=== PATIENT | male | born 1990 | race African-American/Black ===

== ENCOUNTER 2016-12-01 23:30 | Emergency (ER) | payer MEDICAID ==
[~2016-12-01] VITALS: Ht 167.6 cm; Wt 65.0 kg
[~2016-12-01 23:30] MED LIST: FOLI1TAB4 PO
[2016-12-01 23:33] VITALS: BP 121/67; PULSE 74; RESP 16; TEMP 97.8; O2SAT 98
[2016-12-01] MEDS ORDERED: MORPHINE SULFATE 4 MG/ML INJ IV PUSH ONE (23:45)
[2016-12-01] MEDS ORDERED: SODIUM CHLOR 0.9% 1000 ML INJ 1,000 ML IV ONE (23:45)
[2016-12-02 00:02] LABS: AUTOMATED NEUTROPHIL # 2.3 TH/MM3 (1.8-7.7); BASOPHIL # 0.2 TH/MM3 (0-0.2); BASOPHIL % 2.5 % (0.0-2.0); EOSINOPHIL # 0.4 TH/MM3 (0-0.4); EOSINOPHIL % 5.7 % (0.0-4.0); HEMATOCRIT 36.5 % (39.0-51.0); HEMO FLAGS DIFF FINAL; LYMPHOCYTE # 2.8 TH/MM3 (1.0-4.8); MEAN CELL VOLUME 79.6 FL (80.0-100.0); MEAN CORPUSCULAR HEMOGLOBIN 27.9 PG (27.0-34.0); MONO % 11.8 % (0.0-8.0); PLATELET COUNT 274 TH/MM3 (150-450); RED BLOOD COUNT 4.59 MIL/MM3 (4.50-5.90); RED CELL DISTRIBUTION WIDTH 17.6 % (11.6-17.2); RETIC % 3.4 % (0.4-3.0); REVIEW FLAG FINAL; WHITE BLOOD COUNT 6.4 TH/MM3 (4.0-11.0)
[2016-12-02 00:20] LABS: ALT (GPT) 19 U/L (12-78); ANION GAP 6 MEQ/L (5-15); AST (GOT) 18 U/L (15-37); BICARBONATE 30.6 MEQ/L (21.0-32.0); BLOOD UREA NITROGEN 11 MG/DL (7-18); CHLORIDE 106 MEQ/L (98-107); GLOMERULAR FILTRATION RATE 100 ML/MIN (>89); POTASSIUM 4.2 MEQ/L (3.5-5.1); SODIUM (NA) 143 MEQ/L (136-145)
[2016-12-02 00:23] LABS: ALKALINE PHOSPHATASE 97 U/L (45-117); TOTAL BILIRUBIN ADULT 1.6 MG/DL (0.2-1.0)
[2016-12-02] MEDS ORDERED: MORPHINE SULFATE 4 MG/ML INJ IV PUSH ONE (01:15)
[2016-12-02 01:26] VITALS: RESP 16
--- NOTE | 2016-12-02 02:25 | PD ---
HPI Chief Complaint: Sickle Cell Time Seen by Provider: 23:39 Travel History International Travel<30 days: No Contact w/Intl Traveler<30days: No Traveled to known affect area: No History of Present Illness HPI Patient is a 26 year old male with history of sickle cell disease complaining of pain all over his body. He says it started today while he was at work. He says he felt weak and then his pain came on. He does not have pain medication at home. He does not follow with a relocation commissioner. He says that he does not want pain medicine at home because "he does not want to get addicted." He denies chest pain or SOB. He denies fever or chills. PFSH Past Medical History Hx Anticoagulant Therapy: No Blood Disorders: Yes (SICKLE CELL) Cardiovascular Problems: No Chemotherapy: No Cerebrovascular Accident: No Diabetes: No Diminished Hearing: No Gastrointestinal Disorders: No Genitourinary: No Musculoskeletal: No Neurologic: No Reproductive: No Respiratory: No Immunizations Current: Yes Sickle Cell Disease: Yes Tetanus Vaccination: < 5 Years Influenza Vaccination: Yes Past Surgical History Other Surgery: Yes Social History Alcohol Use: No Tobacco Use: Yes (0.5 ppd ) Substance Use: No Allergies-Medications (Allergen,Severity, Reaction): Coded Allergies: No Known Allergies (Verified , 12/01/16) Reported Meds & Prescriptions Reported Meds & Active Scripts Active Review of Systems Except as stated in HPI: all other systems reviewed are Neg General / Constitutional: No: Fever, Chills HENT: No: Headaches, Lightheadedness Cardiovascular: No: Chest Pain or Discomfort Respiratory: No: Cough, Shortness of Breath Gastrointestinal: No: Nausea, Vomiting Musculoskeletal: Positive: Myalgias, Arthralgias Skin: No Rash, No Change in Pigmentation Neurologic: Positive: Weakness Physical Exam Narrative GENERAL: Awake and alert in no acute distress. SKIN: Warm and dry. HEAD: Atraumatic. Normocephalic. EYES: Pupils equal and round. No scleral icterus. No conjunctival pallor. ENT: Mucous membranes pink and moist. NECK: Trachea midline. No JVD. CARDIOVASCULAR: Regular rate and rhythm. No murmur appreciated. RESPIRATORY: No accessory muscle use. Clear to auscultation. Breath sounds equal bilaterally. GASTROINTESTINAL: Abdomen soft, non-tender, nondistended. MUSCULOSKELETAL: No obvious deformities. No clubbing. No cyanosis. No edema. NEUROLOGICAL: Awake and alert. No obvious cranial nerve deficits. Motor grossly within normal limits. Normal speech. PSYCHIATRIC: Appropriate mood and affect; insight and judgment normal. Data Data Last Documented VS Vital Signs Date Time Temp Pulse Resp B/P Pulse Ox O2 Delivery O2 Flow Rate FiO2 12/02/16 01:26 16 12/01/16 23:33 97.8 74 121/67 98 Room Air Orders Complete Blood Count With Diff (12/01/16 23:45) Comprehensive Metabolic Panel (12/01/16 23:45) Retic Count (12/01/16 23:45) Sodium Chlor 0.9% 1000 Ml Inj (Ns 1000 M (12/01/16 23:45) Morphine Inj (Morphine Inj) (12/01/16 23:45) Morphine Inj (Morphine Inj) (12/02/16 01:15) Labs Laboratory Tests Test 12/01/16 23:50 White Blood Count 6.4 TH/MM3 Red Blood Count 4.59 MIL/MM3 Hemoglobin 12.8 GM/DL Hematocrit 36.5 % Mean Corpuscular Volume 79.6 FL Mean Corpuscular Hemoglobin 27.9 PG Mean Corpuscular Hemoglobin 35.0 % Concent Red Cell Distribution Width 17.6 % Platelet Count 274 TH/MM3 Mean Platelet Volume 7.5 FL Neutrophils (%) (Auto) 36.0 % Lymphocytes (%) (Auto) 44.0 % Monocytes (%) (Auto) 11.8 % Eosinophils (%) (Auto) 5.7 % Basophils (%) (Auto) 2.5 % Neutrophils # (Auto) 2.3 TH/MM3 Lymphocytes # (Auto) 2.8 TH/MM3 Monocytes # (Auto) 0.8 TH/MM3 Eosinophils # (Auto) 0.4 TH/MM3 Basophils # (Auto) 0.2 TH/MM3 CBC Comment DIFF FINAL Differential Comment Reticulocyte Count 3.4 % Absolute Reticulocyte Count 156.2 MIL/L Sodium Level 143 MEQ/L Potassium Level 4.2 MEQ/L Chloride Level 106 MEQ/L Carbon Dioxide Level 30.6 MEQ/L Anion Gap 6 MEQ/L Blood Urea Nitrogen 11 MG/DL Creatinine 1.07 MG/DL Estimat Glomerular Filtration 100 ML/MIN Rate Random Glucose 118 MG/DL Calcium Level 9.0 MG/DL Total Bilirubin 1.6 MG/DL Aspartate Amino Transf 18 U/L (AST/SGOT) Alanine Aminotransferase 19 U/L (ALT/SGPT) Alkaline Phosphatase 97 U/L Total Protein 7.7 GM/DL Albumin 4.0 GM/DL MDM Medical Decision Making Medical Screen Exam Complete: Yes Emergency Medical Condition: Yes Medical Record Reviewed: Yes Differential Diagnosis Sickle cell crisis versus anemia versus infection Narrative Course Patient is a 26-year-old male who comes in complaining of sickle cell pain. Exam shows no abnormalities. IV established, labs sent. Hemoglobin is 12.8. There are no abnormalities in his labs, or tick count is elevated appropriately. Patient given IV fluids and morphine. He reports his pain is improving, but he still has some pain. Given second dose of morphine. Patient states he is feeling better and is ready to go home. Advised to follow- up with a relocation commissioner. Advised to return to the ED as needed for any worsening symptoms. Diagnosis Primary Impression: Sickle cell pain crisis Patient Instructions: General Instructions, Sickle Cell Crisis (ED) Additional Instructions: Follow up with a relocation commissioner. Take Tylenol or Ibuprofen for pain. Return as needed for any worsening pain. Disposition: 01 DISCHARGE HOME Condition: Stable Jennifer Monique MD Dec 02, 2016 02:25
== END 2016-12-02 02:30 | disposition home or self-care (01) ==
LOC: NEPC 23:30
DX: D57.00 Hb-SS disease with crisis, unspecified (principal)
CPT/HCPCS: 80053; 85025; 85044; 96361; 96374; 96376; 99284; J2270; J7030

== ENCOUNTER 2016-12-18 21:05 | Emergency (ER) | payer MEDICAID ==
[~2016-12-18] VITALS: Ht 167.6 cm; Wt 63.5 kg
[2016-12-18 21:07] VITALS: BP 128/74; PULSE 80; RESP 18; TEMP 98.1; O2SAT 98
[2016-12-18] MEDS ORDERED: SODIUM CHLOR 0.9% 1000 ML INJ 1,000 ML IV ONE (21:18)
[2016-12-18] MEDS ORDERED: MORPHINE SULFATE 4 MG/ML INJ IV PUSH ONE ×2 (21:30→22:30)
[2016-12-18] MEDS ORDERED: ONDANSETRON HCL 4 MG/2 ML VIAL IV PUSH ONE (21:30)
[2016-12-18] MEDS ORDERED: FOLIC ACID 1 MG TAB PO ONE (21:30)
--- NOTE | 2016-12-18 21:43 | PD ---
HPI Chief Complaint: Sickle Cell Time Seen by Provider: 21:39 Travel History International Travel<30 days: No Contact w/Intl Traveler<30days: No Traveled to known affect area: No History of Present Illness HPI 26-year-old male that presents to the ED for evaluation of sickle-cell pain. Per patient she's had sickle cell pain the past this is different in the weight that he has some much pain in his right arm which is new for him. Per patient has had pain in his shoulder and arm before from sickle cell but never where he cannot move it because his severely painful. He denies any fevers chills or sweats. Nothing that contributes to his pain. Per patient he doesn't take any medications for this. He has no allergies to medication. Denies any chest pain or shortness of breath. Per patient pain is 8 out of 10. Per patient his been started today. Denies any nausea or vomiting. No other medical problems reported today. He does follow with a balloon sander. PFSH Past Medical History Hx Anticoagulant Therapy: No Blood Disorders: Yes (SICKLE CELL) Cardiovascular Problems: No Chemotherapy: No Cerebrovascular Accident: No Diabetes: No Diminished Hearing: No Gastrointestinal Disorders: No Genitourinary: No Musculoskeletal: No Neurologic: No Reproductive: No Respiratory: No Immunizations Current: Yes Sickle Cell Disease: Yes Past Surgical History Other Surgery: Yes Social History Alcohol Use: No Tobacco Use: Yes (0.5 ppd ) Substance Use: No Allergies-Medications (Allergen,Severity, Reaction): Coded Allergies: No Known Allergies (Verified , 12/18/16) Reported Meds & Prescriptions Reported Meds & Active Scripts Active No Active Prescriptions or Reported Medications Review of Systems Except as stated in HPI: all other systems reviewed are Neg Physical Exam Narrative GENERAL: SKIN: Warm and dry. HEAD: Atraumatic. Normocephalic. EYES: Pupils equal and round. No scleral icterus. No injection or drainage. ENT: No nasal bleeding or discharge. Mucous membranes pink and moist. Tongue is midline. No uvula deviation. NECK: Trachea midline. No JVD. CARDIOVASCULAR: Regular rate and rhythm. No murmurs, S3, S4. RESPIRATORY: No accessory muscle use. Clear to auscultation. Breath sounds equal bilaterally. GASTROINTESTINAL: Abdomen soft, non-tender, nondistended. Hepatic and splenic margins not palpable. MUSCULOSKELETAL: Extremities without clubbing, cyanosis, or edema. No obvious deformities. Full range of motion of the left upper extremity will patient does have difficulty moving the right shoulder secondary to severe pain. No obvious deformity noted on physical exam. Pupils pulses bilaterally. NEUROLOGICAL: Awake and alert. No obvious cranial nerve deficits. Motor grossly within normal limits. Five out of 5 muscle strength in the arms and legs. Normal speech. PSYCHIATRIC: Appropriate mood and affect; insight and judgment normal. Data Data Last Documented VS Vital Signs Date Time Temp Pulse Resp B/P Pulse Ox O2 Delivery O2 Flow Rate FiO2 12/18/16 22:05 75 16 120/67 98 Room Air 12/18/16 21:07 98.1 Orders Basic Metabolic Panel (Bmp) (12/18/16 21:18) Complete Blood Count With Diff (12/18/16 21:18) Retic Count (12/18/16 21:18) Iv Access Insert/Monitor (12/18/16 21:18) Sodium Chlor 0.9% 1000 Ml Inj (Ns 1000 M (12/18/16 21:18) Folic Acid (Folate) (12/18/16 21:30) Morphine Inj (Morphine Inj) (12/18/16 21:30) Ondansetron Inj (Zofran Inj) (12/18/16 21:30) Morphine Inj (Morphine Inj) (12/18/16 22:30) Ketorolac Inj (Toradol Inj) (12/18/16 22:30) Labs Laboratory Tests Test 12/18/16 21:42 White Blood Count 8.6 TH/MM3 Red Blood Count 4.59 MIL/MM3 Hemoglobin 13.1 GM/DL Hematocrit 37.1 % Mean Corpuscular Volume 80.8 FL Mean Corpuscular Hemoglobin 28.5 PG Mean Corpuscular Hemoglobin 35.3 % Concent Red Cell Distribution Width 17.5 % Platelet Count 284 TH/MM3 Mean Platelet Volume 7.6 FL Neutrophils (%) (Auto) 50.0 % Lymphocytes (%) (Auto) 38.0 % Monocytes (%) (Auto) 6.9 % Eosinophils (%) (Auto) 3.9 % Basophils (%) (Auto) 1.2 % Neutrophils # (Auto) 4.3 TH/MM3 Lymphocytes # (Auto) 3.3 TH/MM3 Monocytes # (Auto) 0.6 TH/MM3 Eosinophils # (Auto) 0.3 TH/MM3 Basophils # (Auto) 0.1 TH/MM3 CBC Comment DIFF FINAL Differential Comment Reticulocyte Count 4.0 % Absolute Reticulocyte Count 183.7 MIL/L Sodium Level 139 MEQ/L Potassium Level 3.8 MEQ/L Chloride Level 101 MEQ/L Carbon Dioxide Level 29.2 MEQ/L Anion Gap 9 MEQ/L Blood Urea Nitrogen 12 MG/DL Creatinine 1.19 MG/DL Estimat Glomerular Filtration 88 ML/MIN Rate Random Glucose 115 MG/DL Calcium Level 8.8 MG/DL MDM Medical Decision Making Medical Screen Exam Complete: Yes Emergency Medical Condition: Yes Medical Record Reviewed: Yes Interpretation(s) CBC & BMP Diagram 12/18/16 21:42 reticular count in the 180s Differential Diagnosis Sickle cell crisis versus sickle cell pain versus dehydration versus chronic pain versus right shoulder pain Narrative Course 18-year-old male that presents to the ED for evaluation of sickle-cell pain. Patient was properly examined and was found to have signs and symptoms consistent appears to be sickle cell pain crisis. Labs and IV as well as fluids and folic acid and pain medication were ordered. Patient agrees for us to proceed. Labs showed sickle cell anemia but otherwise unremarkable. Patient does not feel improved yet. Patient was given 1 more dose of IV morphine and Toradol to help with his symptoms. Patient will be discharged home. Patient was told to follow up with PCP. See ED worsening symptoms. Diagnosis Primary Impression: Sickle cell pain crisis Patient Instructions: Narcotic given in the ED, General Instructions Additional Instructions: Follow with PCP. See ED worsening symptoms. Take Motrin or Tylenol for pain. Med/Other Pt SpecificInfo: No Change to Meds Scripts No Active Prescriptions or Reported Meds Disposition: 01 DISCHARGE HOME Condition: Stable Camilo Marsh Dec 18, 2016 21:43
[2016-12-18 21:58] LABS: AUTOMATED NEUTROPHIL # 4.3 TH/MM3 (1.8-7.7); BASOPHIL # 0.1 TH/MM3 (0-0.2); BASOPHIL % 1.2 % (0.0-2.0); EOSINOPHIL # 0.3 TH/MM3 (0-0.4); EOSINOPHIL % 3.9 % (0.0-4.0); HEMATOCRIT 37.1 % (39.0-51.0); HEMO FLAGS DIFF FINAL; LYMPHOCYTE # 3.3 TH/MM3 (1.0-4.8); MEAN CELL VOLUME 80.8 FL (80.0-100.0); MEAN CORPUSCULAR HEMOGLOBIN 28.5 PG (27.0-34.0); MEAN CORPUSCULAR HGB CONC 35.3 % (32.0-36.0); MONO % 6.9 % (0.0-8.0); PLATELET COUNT 284 TH/MM3 (150-450); RED BLOOD COUNT 4.59 MIL/MM3 (4.50-5.90); RED CELL DISTRIBUTION WIDTH 17.5 % (11.6-17.2); REVIEW FLAG FINAL; WHITE BLOOD COUNT 8.6 TH/MM3 (4.0-11.0)
[2016-12-18 22:05] VITALS: BP 120/67; PULSE 75; RESP 16; O2SAT 98
[2016-12-18 22:21] LABS: BICARBONATE 29.2 MEQ/L (21.0-32.0); POTASSIUM 3.8 MEQ/L (3.5-5.1)
[2016-12-18] MEDS ORDERED: KETOROLAC TROMETHAMINE 30 MG/ML (IVP) VIAL IV PUSH ONE (22:30)
[2016-12-18 23:30] VITALS: BP 118/64
== END 2016-12-18 23:52 | disposition home or self-care (01) ==
LOC: NEPC 21:05
DX: D57.00 Hb-SS disease with crisis, unspecified (principal); F17.210 Nicotine dependence, cigarettes, uncomplicated
CPT/HCPCS: 80048; 85025; 85044; 96374; 96375; 96376; 99284; J1885; J2270; J2405; J7030

== ENCOUNTER 2017-01-10 18:31 | Emergency (ER) | payer MEDICAID ==
[~2017-01-10] VITALS: Ht 167.6 cm; Wt 66.0 kg
[2017-01-10 18:32] VITALS: BP 126/77; PULSE 76; RESP 18; TEMP 98.9; O2SAT 100
[2017-01-10] MEDS ORDERED: SODIUM CHLOR 0.9% 1000 ML INJ 1,000 ML IV ONE (19:25)
--- NOTE | 2017-01-10 19:29 | PD ---
HPI Chief Complaint: Sickle Cell Time Seen by Provider: 19:25 Travel History International Travel<30 days: No Contact w/Intl Traveler<30days: No Traveled to known affect area: No History of Present Illness HPI 26-year-old male with history of sickle cell disease, presents to the ER today for chest discomfort, body aches, shortness of breath that started today on its own. He denies any fevers, vomiting, or any other symptoms. Pain is currently a 10 out of 10. He states that it feels different from his sickle cell disorder , states he usually does not get short of breath. Modifying Factors: None Associated Signs & Symptoms: Body pains, chest pains, shortness of breath Risk Factors: Sickle cell PFSH Past Medical History Hx Anticoagulant Therapy: No Blood Disorders: Yes (SICKLE CELL) Cardiovascular Problems: No Chemotherapy: No Cerebrovascular Accident: No Diabetes: No Diminished Hearing: No Gastrointestinal Disorders: No Genitourinary: No Musculoskeletal: No Neurologic: No Reproductive: No Respiratory: No Immunizations Current: Yes Sickle Cell Disease: Yes Tetanus Vaccination: > 5 Years Past Surgical History Other Surgery: Yes Social History Alcohol Use: No Tobacco Use: Yes (0.5 ppd ) Substance Use: No Allergies-Medications (Allergen,Severity, Reaction): Coded Allergies: No Known Allergies (Verified , 01/10/17) Reported Meds & Prescriptions Reported Meds & Active Scripts Active No Active Prescriptions or Reported Medications Review of Systems Except as stated in HPI: all other systems reviewed are Neg Physical Exam Narrative GENERAL: Well-nourished, well-developed young -Citizen Of [place] male patient in moderate distress. SKIN: Warm and dry. HEAD: Normocephalic. EYES: No scleral icterus. No injection or drainage. NECK: Supple, trachea midline. CARDIOVASCULAR: Regular rate and rhythm without murmurs, gallops, or rubs. RESPIRATORY: Breath sounds equal but decreased throughout bilaterally. No accessory muscle use. GASTROINTESTINAL: Abdomen soft, non-tender, nondistended. MUSCULOSKELETAL: No cyanosis, or edema. BACK: Nontender without obvious deformity. No CVA tenderness. Data Data Last Documented VS Vital Signs Date Time Temp Pulse Resp B/P Pulse Ox O2 Delivery O2 Flow Rate FiO2 01/10/17 20:25 100 Nasal Cannula 2 01/10/17 19:52 75 18 141/80 01/10/17 18:32 98.9 Orders C-Reactive Protein (Crp) (01/10/17 19:25) Complete Blood Count With Diff (01/10/17 19:25) Comprehensive Metabolic Panel (01/10/17:25) Retic Count (01/10/17:25) Chest, Single Ap (01/10/17 19:25) Ecg Monitoring (01/10/17 19:25) Iv Access Insert/Monitor (01/10/17:25) Oximetry (01/10/17:25) Oxygen Administration (01/10/17:25) Hydromorphone Pf Inj (Dilaudid Pf Inj) (01/10/17 19:30) Ondansetron Inj (Zofran Inj) (01/10/17 19:30) Sodium Chloride 0.9% Flush (Ns Flush) (01/10/17 19:30) Sodium Chlor 0.9% 1000 Ml Inj (Ns 1000 M (01/10/17 19:25) Diphenhydramine Inj (Benadryl Inj) (01/10/17 19:30) Electrocardiogram (01/10/17 19:29) Blood Culture (01/10/17 20:08) Lactic Acid Sepsis Protocol (01/10/17 20:08) Ceftriaxone Inj (Rocephin Inj) (01/10/17 20:08) Azithromycin Inj (Zithromax Inj) (01/10/17 20:08) Labs Laboratory Tests Test 01/10/17 01/10/17 18:45 20:20 White Blood Count 10.3 TH/MM3 Red Blood Count 4.47 MIL/MM3 Hemoglobin 13.0 GM/DL Hematocrit 36.6 % Mean Corpuscular Volume 82.0 FL Mean Corpuscular Hemoglobin 29.0 PG Mean Corpuscular Hemoglobin 35.4 % Concent Red Cell Distribution Width 16.9 % Platelet Count 265 TH/MM3 Mean Platelet Volume 8.2 FL Neutrophils (%) (Auto) % Lymphocytes (%) (Auto) % Monocytes (%) (Auto) % Eosinophils (%) (Auto) % Basophils (%) (Auto) % Neutrophils # (Auto) TH/MM3 Lymphocytes # (Auto) TH/MM3 Monocytes # (Auto) TH/MM3 Eosinophils # (Auto) TH/MM3 Basophils # (Auto) TH/MM3 CBC Comment AUTO DIFF Differential Total Cells 100 Counted Neutrophils % (Manual) 80 % Band Neutrophils % 1 % Lymphocytes % 14 % Monocytes % 3 % Eosinophils % 2 % Neutrophils # (Manual) 8.3 TH/MM3 Differential Comment FINAL DIFF MANUAL Platelet Estimate NORMAL Platelet Morphology Comment NORMAL Sickle Cells 1+ Target Cells 3+ Ovalocytes 1+ Reticulocyte Count 4.0 % Absolute Reticulocyte Count 176.9 MIL/L Sodium Level 141 MEQ/L Potassium Level 3.9 MEQ/L Chloride Level 105 MEQ/L Carbon Dioxide Level 30.6 MEQ/L Anion Gap 5 MEQ/L Blood Urea Nitrogen 7 MG/DL Creatinine 0.99 MG/DL Estimat Glomerular Filtration 109 ML/MIN Rate Random Glucose 75 MG/DL Calcium Level 8.6 MG/DL Total Bilirubin 2.0 MG/DL Aspartate Amino Transf 15 U/L (AST/SGOT) Alanine Aminotransferase 14 U/L (ALT/SGPT) Alkaline Phosphatase 91 U/L C-Reactive Protein 0.69 MG/DL Total Protein 8.0 GM/DL Albumin 4.3 GM/DL Lactic Acid Level 1.2 mmol/L MDM Medical Decision Making Medical Screen Exam Complete: Yes Emergency Medical Condition: Yes Medical Record Reviewed: Yes Interpretation(s) EKG shows NSR, no ST elevation or depression, and no arrhythmias. No significant T-wave inversions. Laboratory Tests Test 01/10/17 18:45 Red Blood Count 4.47 MIL/MM3 (4.50-5.90) Hematocrit 36.6 % (39.0-51.0) Neutrophils % (Manual) 80 % (16-70) Neutrophils # (Manual) 8.3 TH/MM3 (1.8-7.7) Sickle Cells 1+ (NORMAL) Target Cells 3+ (NORMAL) Ovalocytes 1+ (NORMAL) Reticulocyte Count 4.0 % (0.4-3.0) Absolute Reticulocyte Count 176.9 MIL/L (20.0-150.0) Total Bilirubin 2.0 MG/DL (0.2-1.0) C-Reactive Protein 0.69 MG/DL (0.00-0.30) Last 24 hours Impressions Chest X-Ray 01/10/171924 Signed Impressions: Service Date/Time: Tuesday, January 10, 2017 19:38 - CONCLUSION: Slight nonspecific right base infiltrate. Elpidio Mar MD Differential Diagnosis Chest discomfort, shortness of breath, body painssickle cell crisis versus pneumonia versus ACS versus acute chest syndrome Narrative Course Chest x-ray shows a slight right sided infiltrate questionable for underlying pneumonia. IV antacid initiated after cultures are drawn. He was given IV fluids, pain medications, Zofran, and Benadryl in the ER. I have offered to admit the patient for the pneumonia and he states that he wants to go to work does not want to be admitted this point. At this point, my plan would be to release the patient with follow-up to primary care physician and we will give him antibiotics and symptomatic relief or pain. Return for any worsening in symptoms as necessary. The plan has discussed with the patient and he states understanding. Diagnosis Primary Impression: Sickle cell pain crisis Additional Impression: Pneumonia Med/Other Pt SpecificInfo: Prescription(s) given Scripts Levofloxacin (Levaquin)750 Mg Obr760 Mg PO DAILY 7 Days Ref 0 Prov:Ann Morton MD 01/10/17 Hydrocodone-Acetaminophen (Lortab)5-325 Mg Tab1-2 Tab PO Q6H PRN (PAIN) #20 TAB Ref 0 Prov:Ann Morton MD 01/10/17 Disposition: 01 DISCHARGE HOME Condition: Stable Ann Morton MD Jan 10, 2017 19:29
[2017-01-10] MEDS ORDERED: diphenhydrAMINE HCL 50 MG/ML VIAL IV ONE (19:30)
[2017-01-10] MEDS ORDERED: ONDANSETRON HCL 4 MG/2 ML VIAL IVP ONE (19:30)
[2017-01-10] MEDS ORDERED: SODIUM CHLORIDE 0.9% FLUSH 5 ML FLUSH IVF PRN (19:30)
[2017-01-10] MEDS ORDERED: HYDROmorphone HCL PF 2 MG/ML VIAL IVS ONE (19:30)
[2017-01-10 19:52] VITALS: BP 141/80; PULSE 75; RESP 18; O2SAT 100
--- NOTE | 2017-01-10 19:57 | RADRPT ---
EXAM DATE/TIME: 01/10/2017 19:38 [facility] COMPARISON: No previous studies available for comparison. INDICATIONS : Chest pain and shortness of breath. MEDICAL HISTORY : Sickle Cell disease. Smoker. SURGICAL HISTORY : None. ENCOUNTER: Initial ACUITY: 1 day PAIN SCORE: 3/10 LOCATION: Left chest FINDINGS: Slight infiltrates in right lung base. No pleural effusion. No pneumothorax. Heart size upper limits of normal. CONCLUSION: Slight nonspecific right base infiltrate. Elpidio Mar MD on January 10, 2017 at 19:55 Board Certified Radiologist. This report was verified electronically.
[2017-01-10] MEDS ORDERED: AZITHROMYCIN INJ 500 MG in SODIUM CHLOR 0.9% 250 ML INJ 250 ML IV STA (20:08)
[2017-01-10] MEDS ORDERED: cefTRIAXone INJ 2,000 MG in SODIUM CHLORIDE 0.9% INJ 100 ML IV STA (20:08)
[2017-01-10 20:17] LABS: HEMATOCRIT 36.6 % (39.0-51.0); MEAN CORPUSCULAR HGB CONC 35.4 % (32.0-36.0); PLATELET COUNT 265 TH/MM3 (150-450); RED BLOOD COUNT 4.47 MIL/MM3 (4.50-5.90); RED CELL DISTRIBUTION WIDTH 16.9 % (11.6-17.2); WHITE BLOOD COUNT 10.3 TH/MM3 (4.0-11.0)
[2017-01-10 20:20] LABS: HEMO FLAGS AUTO DIFF; REVIEW FLAG AUTO DIFF
[2017-01-10 20:43] LABS: BANDS 1 % (0-6); EOSINOPHILS 2 % (0-4); NEUTROPHIL # MANUAL DIFF 8.3 TH/MM3 (1.8-7.7); OVALOCYTES 1+ (NORMAL); PLATELET ESTIMATE SMEAR NORMAL (NORMAL); PLATELET MORPHOLOGY NORMAL (NORMAL); POLYS (SEG NEUTROPHILS) 80 % (16-70); SICKLE CELLS 1+ (NORMAL); TARGET CELLS 3+ (NORMAL); WBC DIFF SAMPLE 100
[2017-01-10 20:44] LABS: SCAN/DIFF FINAL DIFF MANUAL
[2017-01-10 21:42] LABS: ALT (GPT) 14 U/L (12-78); ANION GAP 5 MEQ/L (5-15); AST (GOT) 15 U/L (15-37); BICARBONATE 30.6 MEQ/L (21.0-32.0); BLOOD UREA NITROGEN 7 MG/DL (7-18); CHLORIDE 105 MEQ/L (98-107); GLOMERULAR FILTRATION RATE 109 ML/MIN (>89); POTASSIUM 3.9 MEQ/L (3.5-5.1); SODIUM (NA) 141 MEQ/L (136-145)
[2017-01-10 21:45] LABS: ALKALINE PHOSPHATASE 91 U/L (45-117)
[2017-01-10] MEDS ORDERED: HYDR-3533 PO (22:06)
[2017-01-10] MEDS ORDERED: LEVA750T PO (22:06)
--- NOTE | 2017-01-11 22:16 | EKG ---
Date Performed: 01/10/2017 Time Performed: 20:30:30 PTAGE: 26 years EKG: Sinus rhythm WITH SINUS ARRHYTHMIA WITH SHORT DE INTERVAL BORDERLINE ECG PREVIOUS TRACING : 09/13/2016 16.28 Compared to prior tracing no significant change DOCTOR: Tess Menjivar Interpretating Date/Time 01/11/2017 22:15:20
== END 2017-01-10 22:18 | disposition home or self-care (01) ==
LOC: NEPC 18:31
DX: D57.00 Hb-SS disease with crisis, unspecified (principal); J18.9 Pneumonia, unspecified organism
CPT/HCPCS: 71010; 80053; 83605; 85007; 85027; 85044; 86140; 87040; 93005; 96374; 96375; 99285; J0456; J0696; J1170; J1200; J2405; J7030; J7050

== ENCOUNTER 2017-02-14 21:00 | Emergency (ER) | payer MEDICAID ==
[~2017-02-14] VITALS: Ht 167.6 cm; Wt 66.0 kg
[~2017-02-14 21:00] MED LIST changes: -FOLI1TAB4 PO; +HYDR-3533 PO; +LEVA750T PO
[2017-02-14 21:02] VITALS: BP 129/74; PULSE 82; RESP 16; TEMP 98; O2SAT 99
[2017-02-14] MEDS ORDERED: diphenhydrAMINE HCL 50 MG/ML VIAL IV ONE (22:45)
[2017-02-14] MEDS ORDERED: SODIUM CHLOR 0.9% 1000 ML INJ 1,000 ML IV ONE (22:45)
[2017-02-14] MEDS ORDERED: ONDANSETRON HCL 4 MG/2 ML VIAL IVP ONE (22:45)
[2017-02-14] MEDS ORDERED: HYDROmorphone HCL PF 1 MG/ML VIAL IVS ONE (22:45)
[2017-02-14] MEDS ORDERED: SODIUM CHLORIDE 0.9% FLUSH 10 ML FLUSH IVF PRN (22:45)
[2017-02-14] MEDS ORDERED: KETOROLAC TROMETHAMINE 30 MG/ML (IVP) VIAL IVP ONE (22:45)
[2017-02-14 22:46] LABS: MEAN CORPUSCULAR HGB CONC 36.3 % (32.0-36.0)
--- NOTE | 2017-02-14 23:12 | PD ---
HPI Chief Complaint: Sickle Cell Time Seen by Provider: 22:35 Travel History International Travel<30 days: No Contact w/Intl Traveler<30days: No Traveled to known affect area: No History of Present Illness HPI The patient is a 26-year-old [place] male who presents emergency department for sickle cell pain crisis. The patient cannot recall if he has a history of sickle cell SS or SC. The patient states he has had pain for the last 2 days, generalized, located in the back and legs. He denies any cough, chest pain, shortness breath, or fever. The patient states she does not currently have a local primary physician is unable to see a cotton feeder in the local area as he has Medicaid. The patient has been referred to cotton feeder in the past in [facility], however, states he doesn't "have the time for that ". The patient has been tried [id number] Tylenol at home without any alleviation of his symptoms. Symptoms are moderate, exacerbated by history of sickle cell, and there are no current alleviating factors. PFSH Past Medical History Hx Anticoagulant Therapy: No Blood Disorders: Yes (SICKLE CELL) Cardiovascular Problems: No Chemotherapy: No Cerebrovascular Accident: No Diabetes: No Diminished Hearing: No Gastrointestinal Disorders: No Genitourinary: No Musculoskeletal: No Neurologic: No Reproductive: No Respiratory: No Immunizations Current: Yes Sickle Cell Disease: Yes Past Surgical History Other Surgery: Yes Social History Alcohol Use: No Tobacco Use: Yes (0.5 ppd ) Substance Use: No Allergies-Medications (Allergen,Severity, Reaction): Coded Allergies: No Known Allergies (Verified , 02/14/17) Reported Meds & Prescriptions Reported Meds & Active Scripts Active Review of Systems Except as stated in HPI: all other systems reviewed are Neg General / Constitutional: No: Fever Cardiovascular: No: Chest Pain or Discomfort Respiratory: No: Shortness of Breath Gastrointestinal: No: Nausea, Vomiting, Abdominal Pain Musculoskeletal: Positive: Myalgias, Arthralgias, Pain Neurologic: No: Paresthesia, Sensory Disturbance Physical Exam Narrative GENERAL: Awake, alert, 26-year-old male who appears his stated age and is in no acute respiratory distress. SKIN: No rash noted. HEAD: Atraumatic. Normocephalic. EYES: Pupils equal and round. Mild icterus. ENT: No nasal bleeding or discharge. Mucous membranes pink and moist. NECK: Trachea midline. No JVD. CARDIOVASCULAR: Regular rate and rhythm. No murmur appreciated. RESPIRATORY: No accessory muscle use. Clear to auscultation. Breath sounds equal bilaterally. GASTROINTESTINAL: Abdomen soft, mild swollen eyelid. MUSCULOSKELETAL: No obvious deformities. No clubbing. No cyanosis. No edema. NEUROLOGICAL: Awake and alert. No obvious cranial nerve deficits. Motor grossly within normal limits. Normal speech. PSYCHIATRIC: Appropriate mood and affect; insight and judgment normal. Data Data Last Documented VS Vital Signs Date Time Temp Pulse Resp B/P Pulse Ox O2 Delivery O2 Flow Rate FiO2 02/14/17 21:02 98.0 82 16 129/74 99 Orders Complete Blood Count With Diff (02/14/17 22:45) Retic Count (02/14/17 22:45) Ecg Monitoring (02/14/17 22:45) Iv Access Insert/Monitor (02/14/17 22:45) Oximetry (02/14/17 22:45) Ketorolac Inj (Toradol Inj) (02/14/17 22:45) Ondansetron Inj (Zofran Inj) (02/14/17 22:45) Sodium Chloride 0.9% Flush (Ns Flush) (02/14/17 22:45) Sodium Chlor 0.9% 1000 Ml Inj (Ns 1000 M (02/14/17 22:45) Hydromorphone Pf Inj (Dilaudid Pf Inj) (02/14/17 22:45) Diphenhydramine Inj (Benadryl Inj) (02/14/17 22:45) Labs Laboratory Tests Test 02/14/17 23:00 White Blood Count 8.8 TH/MM3 Red Blood Count 4.29 MIL/MM3 Hemoglobin 12.7 GM/DL Hematocrit 35.0 % Mean Corpuscular Volume 81.6 FL Mean Corpuscular Hemoglobin 29.6 PG Mean Corpuscular Hemoglobin 36.3 % Concent Red Cell Distribution Width 17.3 % Platelet Count 272 TH/MM3 Mean Platelet Volume 7.9 FL Neutrophils (%) (Auto) 43.6 % Lymphocytes (%) (Auto) 37.6 % Monocytes (%) (Auto) 12.7 % Eosinophils (%) (Auto) 4.6 % Basophils (%) (Auto) 1.5 % Neutrophils # (Auto) 3.9 TH/MM3 Lymphocytes # (Auto) 3.3 TH/MM3 Monocytes # (Auto) 1.1 TH/MM3 Eosinophils # (Auto) 0.4 TH/MM3 Basophils # (Auto) 0.1 TH/MM3 CBC Comment AUTO DIFF Differential Comment AUTO DIFF CONFIRMED Target Cells 2+ Reticulocyte Count 5.0 % Absolute Reticulocyte Count 213.2 MIL/L MDM Medical Decision Making Medical Screen Exam Complete: Yes Emergency Medical Condition: Yes Medical Record Reviewed: Yes Interpretation(s) Laboratory Tests Test 02/14/17 23:00 White Blood Count 8.8 TH/MM3 Red Blood Count 4.29 MIL/MM3 Hemoglobin 12.7 GM/DL Hematocrit 35.0 % Mean Corpuscular Volume 81.6 FL Mean Corpuscular Hemoglobin 29.6 PG Mean Corpuscular Hemoglobin 36.3 % Concent Red Cell Distribution Width 17.3 % Platelet Count 272 TH/MM3 Mean Platelet Volume 7.9 FL Neutrophils (%) (Auto) 43.6 % Lymphocytes (%) (Auto) 37.6 % Monocytes (%) (Auto) 12.7 % Eosinophils (%) (Auto) 4.6 % Basophils (%) (Auto) 1.5 % Neutrophils # (Auto) 3.9 TH/MM3 Lymphocytes # (Auto) 3.3 TH/MM3 Monocytes # (Auto) 1.1 TH/MM3 Eosinophils # (Auto) 0.4 TH/MM3 Basophils # (Auto) 0.1 TH/MM3 CBC Comment AUTO DIFF Differential Comment AUTO DIFF CONFIRMED Target Cells 2+ Reticulocyte Count 5.0 % Absolute Reticulocyte Count 213.2 MIL/L Differential Diagnosis Differential diagnosis includes sickle cell vaso-occlusive crisis, symptomatic anemia, drug-seeking behavior, malingering, dehydration, acute chest syndrome. Narrative Course IV was established, labs are drawn and sent, and the patient was placed on cardiac telemetry monitoring and continuous pulse oximetry monitoring. The patient was administered Toradol, Dilaudid, Benadryl, and IV fluids. I reviewed the EMR, the patient was seen by Dr. 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 The patient was reevaluated at 1151, his pain had improved, was down to 5/ 10. Therefore, patient was redosed with pain medications. Hemoglobin is greater than 12 and retake count was appropriate. The patient will be discharged home on Percocet and is advised to follow-up with her cotton feeder. Diagnosis Primary Impression: Sickle cell pain crisis Patient Instructions: General Instructions Additional Instructions: Medications as directed. Follow-up with a cotton feeder her primary physician. Return if symptoms worsen or progress. Med/Other Pt SpecificInfo: Prescription(s) given Scripts Oxycodone-Acetaminophen (Percocet)10-325 mg Tab1 Tab PO Q6H PRN (PAIN) #12 TAB Ref 0 Prov:Malik Fowler MD 02/14/17 Condition: Stable Malik Fowler MD Feb 14, 2017 23:12
[2017-02-14 23:18] LABS: AUTOMATED NEUTROPHIL # 3.9 TH/MM3 (1.8-7.7); BASOPHIL # 0.1 TH/MM3 (0-0.2); BASOPHIL % 1.5 % (0.0-2.0); EOSINOPHIL # 0.4 TH/MM3 (0-0.4); EOSINOPHIL % 4.6 % (0.0-4.0); LYMPH % 37.6 % (9.0-44.0); LYMPHOCYTE # 3.3 TH/MM3 (1.0-4.8); MEAN CELL VOLUME 81.6 FL (80.0-100.0); MEAN CORPUSCULAR HEMOGLOBIN 29.6 PG (27.0-34.0); MONO % 12.7 % (0.0-8.0); NEUT % 43.6 % (16.0-70.0); PLATELET COUNT 272 TH/MM3 (150-450); RED BLOOD COUNT 4.29 MIL/MM3 (4.50-5.90); RED CELL DISTRIBUTION WIDTH 17.3 % (11.6-17.2); WHITE BLOOD COUNT 8.8 TH/MM3 (4.0-11.0)
[2017-02-14 23:19] LABS: HEMO FLAGS AUTO DIFF
[2017-02-14 23:40] LABS: SCAN/DIFF AUTO DIFF CONFIRMED; TARGET CELLS 2+ (NORMAL)
[2017-02-14] MEDS ORDERED: PERC10TA27 PO (23:52)
[2017-02-15] MEDS ORDERED: HYDROmorphone HCL PF 1 MG/ML VIAL IV PUSH ONE
[2017-02-15 00:21] VITALS: RESP 16
[2017-02-15] MEDS ORDERED: PERC10TA27 PO (21:33)
--- NOTE | 2017-02-15 21:34 | PD ---
Data Data Last Documented VS Vital Signs Date Time Temp Pulse Resp B/P Pulse Ox O2 Delivery O2 Flow Rate FiO2 02/15/17 01:36 64 14 100 02/14/17 21:02 98.0 129/74 Orders Complete Blood Count With Diff (02/14/17 22:45) Retic Count (02/14/17 22:45) Ecg Monitoring (02/14/17 22:45) Iv Access Insert/Monitor (02/14/17 22:45) Oximetry (02/14/17 22:45) Ketorolac Inj (Toradol Inj) (02/14/17 22:45) Ondansetron Inj (Zofran Inj) (02/14/17 22:45) Sodium Chloride 0.9% Flush (Ns Flush) (02/14/17 22:45) Sodium Chlor 0.9% 1000 Ml Inj (Ns 1000 M (02/14/17 22:45) Hydromorphone Pf Inj (Dilaudid Pf Inj) (02/14/17 22:45) Diphenhydramine Inj (Benadryl Inj) (02/14/17 22:45) Hydromorphone Pf Inj (Dilaudid Pf Inj) (02/15/17 00:00) Labs Laboratory Tests Test 02/14/17 23:00 White Blood Count 8.8 TH/MM3 Red Blood Count 4.29 MIL/MM3 Hemoglobin 12.7 GM/DL Hematocrit 35.0 % Mean Corpuscular Volume 81.6 FL Mean Corpuscular Hemoglobin 29.6 PG Mean Corpuscular Hemoglobin 36.3 % Concent Red Cell Distribution Width 17.3 % Platelet Count 272 TH/MM3 Mean Platelet Volume 7.9 FL Neutrophils (%) (Auto) 43.6 % Lymphocytes (%) (Auto) 37.6 % Monocytes (%) (Auto) 12.7 % Eosinophils (%) (Auto) 4.6 % Basophils (%) (Auto) 1.5 % Neutrophils # (Auto) 3.9 TH/MM3 Lymphocytes # (Auto) 3.3 TH/MM3 Monocytes # (Auto) 1.1 TH/MM3 Eosinophils # (Auto) 0.4 TH/MM3 Basophils # (Auto) 0.1 TH/MM3 CBC Comment AUTO DIFF Differential Comment AUTO DIFF CONFIRMED Target Cells 2+ Reticulocyte Count 5.0 % Absolute Reticulocyte Count 213.2 MIL/L MDM Supervised Visit with BONNY: No Narrative Course This patient represented to the emergency department with a damaged Percocet prescription. He was able to handle us the prescription and told us that the pharmacy wouldn't accept it. I rewrote his prescription for pain medication. Diagnosis Primary Impression: Sickle cell pain crisis Patient Instructions: General Instructions Departure Forms: Tests/Procedures Additional Instruction: Medications as directed. Follow-up with a regulatory lead her primary physician. Return if symptoms worsen or progress. Scripts Oxycodone-Acetaminophen (Percocet)10-325 mg Tab1 Tab PO Q6H PRN (PAIN) #12 TAB Ref 0 Prov:Renée Mock MD 02/15/17 Disposition: 01 DISCHARGE HOME Condition: Stable Renée Mock MD Feb 15, 2017 21:34
== END 2017-02-15 01:38 | disposition home or self-care (01) ==
LOC: NEPB 21:00
DX: D57.00 Hb-SS disease with crisis, unspecified (principal)
CPT/HCPCS: 85025; 85044; 96361; 96374; 96375; 96376; 99284; J1170; J1200; J1885; J2405; J7030

== ENCOUNTER 2017-03-06 20:55 | Emergency (ER) | payer MEDICAID ==
[~2017-03-06] VITALS: Ht 167.6 cm; Wt 66.0 kg
[~2017-03-06 20:55] MED LIST changes: -HYDR-3533 PO; -LEVA750T PO; +PERC10TA27 PO
[2017-03-06 20:57] VITALS: BP 122/70; PULSE 62; RESP 16; TEMP 98.1; O2SAT 100
--- NOTE | 2017-03-06 21:33 | PD ---
Physical Exam Time Seen by Provider: 21:31 Narrative 26 year old male with history of sickle cell presents to ED for evaluation of joint pain and body aches worsening over the last 24 hours. Denies any fever or chills. No N/V/D. No abdominal pain or chest pain. States he was sick 2 weeks ago with a cold. Denies any other significant medical history. Data Data Last Documented VS Vital Signs Date Time Temp Pulse Resp B/P Pulse Ox O2 Delivery O2 Flow Rate FiO2 03/06/17 20:57 98.1 62 16 122/70 100 MDM Medical Record Reviewed: Yes Supervised Visit with BONNY: No Narrative Course 26 year old male presents to ED for evaluation of joint pain and body aches. Appears well and without distress. VSS. Condition: Stable Brandy Perez Mar 06, 2017 21:33
[2017-03-06] MEDS ORDERED: SODIUM CHLOR 0.9% 1000 ML INJ 1,000 ML IV ONE (22:25)
[2017-03-06] MEDS ORDERED: ONDANSETRON HCL 4 MG/2 ML VIAL IVP ONE (22:30)
[2017-03-06] MEDS ORDERED: SODIUM CHLORIDE 0.9% FLUSH 10 ML FLUSH IVF PRN (22:30)
[2017-03-06] MEDS ORDERED: diphenhydrAMINE HCL 50 MG/ML VIAL IV ONE (22:30)
[2017-03-06] MEDS ORDERED: HYDROmorphone HCL PF 1 MG/ML VIAL IVS ONE (22:30)
[2017-03-06 22:53] LABS: AUTOMATED NEUTROPHIL # 4.7 TH/MM3 (1.8-7.7); BASOPHIL # 0.3 TH/MM3 (0-0.2); BASOPHIL % 3.3 % (0.0-2.0); EOSINOPHIL # 0.5 TH/MM3 (0-0.4); EOSINOPHIL % 6.4 % (0.0-4.0); LYMPHOCYTE # 1.9 TH/MM3 (1.0-4.8); MONO % 8.3 % (0.0-8.0); WHITE BLOOD COUNT 8.1 TH/MM3 (4.0-11.0)
--- NOTE | 2017-03-06 22:53 | PD ---
HPI Chief Complaint: Sickle Cell Time Seen by Provider: 22:08 Travel History International Travel<30 days: No Contact w/Intl Traveler<30days: No Traveled to known affect area: No History of Present Illness HPI 26-year-old male arrives with sickle cell pain. He states it does not feel like a sickle cell crisis of the pain is not quite as severe. Normally when he experiences that the pain is in the major joints as it is today. He states the right arm is particularly painful. He's had no fever. He offers no respiratory complaint to me. He has no follow-up right now as an outpatient. PFSH Past Medical History Hx Anticoagulant Therapy: No Blood Disorders: Yes (SICKLE CELL) Cardiovascular Problems: No Chemotherapy: No Cerebrovascular Accident: No Diabetes: No Diminished Hearing: No Gastrointestinal Disorders: No Genitourinary: No Musculoskeletal: No Neurologic: No Reproductive: No Respiratory: No Immunizations Current: Yes Sickle Cell Disease: Yes Tetanus Vaccination: < 5 Years Influenza Vaccination: Yes Past Surgical History Other Surgery: Yes Social History Alcohol Use: No Tobacco Use: Yes (0.5 ppd ) Substance Use: No Allergies-Medications (Allergen,Severity, Reaction): Coded Allergies: No Known Allergies (Verified , 03/06/17) Reported Meds & Prescriptions Reported Meds & Active Scripts Active No Active Prescriptions or Reported Medications Review of Systems Except as stated in HPI: all other systems reviewed are Neg Physical Exam Narrative GENERAL: 26-year-old male pleasant SKIN: Focused skin assessment warm/dry. HEAD: Atraumatic. Normocephalic. EYES: Pupils equal and round. No scleral icterus. No injection or drainage. ENT: No nasal bleeding or discharge. Mucous membranes pink and moist. NECK: Trachea midline. No JVD. CARDIOVASCULAR: Regular rate and rhythm. No murmur appreciated. RESPIRATORY: No accessory muscle use. Clear to auscultation. Breath sounds equal bilaterally. GASTROINTESTINAL: Abdomen soft, non-tender, nondistended. Hepatic and splenic margins not palpable. MUSCULOSKELETAL: No obvious deformities. No clubbing. No cyanosis. No edema. No erythema or pain with range of motion at the major joints. NEUROLOGICAL: Awake and alert. No obvious cranial nerve deficits. Motor grossly within normal limits. Normal speech. PSYCHIATRIC: Appropriate mood and affect; insight and judgment normal. Data Data Last Documented VS Vital Signs Date Time Temp Pulse Resp B/P Pulse Ox O2 Delivery O2 Flow Rate FiO2 4/18/17 00:58 60 14 110/56 99 03/06/17 20:57 98.1 Vital signs reviewed Orders Basic Metabolic Panel (Bmp) (03/06/17 22:25) Complete Blood Count With Diff (03/06/17 22:25) Ecg Monitoring (03/06/17 22:25) Iv Access Insert/Monitor (03/06/17 22:25) Oximetry (03/06/17 22:25) Ondansetron Inj (Zofran Inj) (03/06/17 22:30) Sodium Chloride 0.9% Flush (Ns Flush) (03/06/17 22:30) Sodium Chlor 0.9% 1000 Ml Inj (Ns 1000 M (03/06/17 22:25) Hydromorphone Pf Inj (Dilaudid Pf Inj) (03/06/17 22:30) Diphenhydramine Inj (Benadryl Inj) (03/06/17 22:30) Labs Laboratory Tests Test 03/06/17 22:30 Sodium Level 143 MEQ/L Potassium Level 4.1 MEQ/L Chloride Level 108 MEQ/L Carbon Dioxide Level 28.8 MEQ/L Anion Gap 6 MEQ/L Blood Urea Nitrogen 9 MG/DL Creatinine 1.12 MG/DL Estimat Glomerular Filtration 95 ML/MIN Rate Random Glucose 85 MG/DL Calcium Level 8.4 MG/DL White Blood Count 8.1 TH/MM3 Red Blood Count 4.12 MIL/MM3 Hemoglobin 12.0 GM/DL Hematocrit 34.3 % Mean Corpuscular Volume 83.1 FL Mean Corpuscular Hemoglobin 29.1 PG Mean Corpuscular Hemoglobin 35.0 % Concent Red Cell Distribution Width 16.7 % Platelet Count 234 TH/MM3 Mean Platelet Volume 8.2 FL Neutrophils (%) (Auto) 58.0 % Lymphocytes (%) (Auto) 24.0 % Monocytes (%) (Auto) 8.3 % Eosinophils (%) (Auto) 6.4 % Basophils (%) (Auto) 3.3 % Neutrophils # (Auto) 4.7 TH/MM3 Lymphocytes # (Auto) 1.9 TH/MM3 Monocytes # (Auto) 0.7 TH/MM3 Eosinophils # (Auto) 0.5 TH/MM3 Basophils # (Auto) 0.3 TH/MM3 CBC Comment AUTO DIFF Differential Comment AUTO DIFF CONFIRMED [facility] Medical Decision Making Medical Screen Exam Complete: Yes Emergency Medical Condition: Yes Medical Record Reviewed: Yes Differential Diagnosis Septic arthritis, avascular necrosis, bone infarct, anemia Narrative Course CBC & BMP Diagram 03/06/17 22:30 The patient is resting comfortably and feels better, is alert and in no distress. The patients results and examination findings were discussed. The repeat examination is unremarkable and benign. The history, exam, diagnostic testing, and current condition do not suggest any significant pathology to warrant further testing, continued ED treatment, admission, or surgical evaluation at this point. The vital signs have been stable. The patient does not have uncontrollable pain, intractable vomiting, or other significant symptoms. The patient's condition is stable and appropriate for discharge. The patient will pursue further outpatient evaluation with a primary care physician or other designated or consulting physician as indicated in the discharge instructions. The patient expressed understanding and was agreeable with this plan. Diagnosis Primary Impression: Sickle-cell disease with pain Referrals: digital technician 2 days Additional Instructions: You have a choice when it comes to health care, and we are glad that you chose [facility]. Hopefully, we have met your expectations on today's visit. You are welcome to return to [facility] at any time, as we are committed to meeting the health care needs of our community. Med/Other Pt SpecificInfo: Med Stopped Scripts No Active Prescriptions or Reported Meds Disposition: 01 DISCHARGE HOME Condition: Stiven Chacon MD Mar 06, 2017 22:53
[2017-03-06 22:57] LABS: HEMATOCRIT 34.3 % (39.0-51.0); HEMO FLAGS AUTO DIFF; MEAN CELL VOLUME 83.1 FL (80.0-100.0); MEAN CORPUSCULAR HEMOGLOBIN 29.1 PG (27.0-34.0); PLATELET COUNT 234 TH/MM3 (150-450); RED BLOOD COUNT 4.12 MIL/MM3 (4.50-5.90); RED CELL DISTRIBUTION WIDTH 16.7 % (11.6-17.2)
[2017-03-06 23:13] LABS: BICARBONATE 28.8 MEQ/L (21.0-32.0); POTASSIUM 4.1 MEQ/L (3.5-5.1)
[2017-03-07 00:58] VITALS: BP 110/56
[2017-03-07 01:09] LABS: SCAN/DIFF AUTO DIFF CONFIRMED
[2017-03-07] MEDS ORDERED: SODIUM CHLOR 0.9% 1000 ML INJ 1,000 ML IV ONE (01:32)
[2017-03-07] MEDS ORDERED: ONDANSETRON HCL 4 MG/2 ML VIAL IVP ONE (01:45)
[2017-03-07] MEDS ORDERED: HYDROmorphone HCL PF 1 MG/ML VIAL IVS ONE (01:45)
[2017-03-07 02:45] VITALS: BP 120/59
== END 2017-03-07 02:46 | disposition home or self-care (01) ==
LOC: NEPD 20:55
DX: D57.1 Sickle-cell disease without crisis (principal); M25.50 Pain in unspecified joint; Z72.0 Tobacco use
CPT/HCPCS: 80048; 85025; 96361; 96374; 96375; 96376; 99284; J1170; J1200; J2405; J7030

== ENCOUNTER 2017-03-27 19:31 | Emergency (ER) | payer MEDICAID ==
[~2017-03-27] VITALS: Ht 170.2 cm; Wt 75.0 kg
[2017-03-27 19:34] VITALS: BP 124/71; PULSE 77; RESP 16; TEMP 98.6; O2SAT 95
[2017-03-27] MEDS ORDERED: SODIUM CHLOR 0.9% 1000 ML INJ 1,000 ML IV ONE (19:58)
[2017-03-27 20:30] VITALS: O2SAT 100
--- NOTE | 2017-03-27 20:39 | PD ---
HPI Chief Complaint: Sickle Cell Time Seen by Provider: 20:35 Travel History International Travel<30 days: No Contact w/Intl Traveler<30days: No Traveled to known affect area: No History of Present Illness HPI Patient is a 26-year-old male presenting to emergency for evaluation of generalized pain secondary to being in sickle cell crisis. Patient states the symptoms started yesterday, he reports pain all over. Patient states his pain is 9 out of 10. He denies any shortness of breath, nausea, vomiting, abdominal pain, headache, dysuria, leg pain. Patient states he does not have a primary care provider. He does endorse daily tobacco use, denies any drugs or alcohol. PFSH Past Medical History Hx Anticoagulant Therapy: No Blood Disorders: Yes (SICKLE CELL) Cardiovascular Problems: No Chemotherapy: No Cerebrovascular Accident: No Diabetes: No Diminished Hearing: No Gastrointestinal Disorders: No Genitourinary: No Musculoskeletal: No Neurologic: No Reproductive: No Respiratory: No Immunizations Current: Yes Sickle Cell Disease: Yes Past Surgical History Other Surgery: Yes (knee surgery) Social History Alcohol Use: No Tobacco Use: Yes (0.5 ppd ) Substance Use: No Allergies-Medications (Allergen,Severity, Reaction): Coded Allergies: No Known Allergies (Verified , 03/27/17) Reported Meds & Prescriptions Reported Meds & Active Scripts Active No Active Prescriptions or Reported Medications Review of Systems Except as stated in HPI: all other systems reviewed are Neg General / Constitutional: No: Fever, Chills Eyes: No: Blurred Vision, Visual changes HENT: No: Headaches, Lightheadedness Cardiovascular: No: Chest Pain or Discomfort Respiratory: No: Shortness of Breath Gastrointestinal: No: Nausea, Vomiting, Diarrhea, Abdominal Pain Musculoskeletal: Positive: Pain (all over) Neurologic: No: Dizziness, Syncope, Focal Abnormalities Physical Exam Narrative GENERAL: Thin, well-developed, alert male. Resting comfortably in no acute distress. SKIN: Focused skin assessment warm/dry. HEAD: Atraumatic. Normocephalic. EYES: Pupils equal and round. No scleral icterus. No injection or drainage. ENT: No nasal bleeding or discharge. Mucous membranes pink and moist. NECK: Trachea midline. No JVD. CARDIOVASCULAR: Regular rate and rhythm. No murmur appreciated. RESPIRATORY: No accessory muscle use. Clear to auscultation. Breath sounds equal bilaterally. GASTROINTESTINAL: Abdomen soft, non-tender, nondistended. Hepatic and splenic margins not palpable. MUSCULOSKELETAL: No obvious deformities. No clubbing. No cyanosis. No edema. NEUROLOGICAL: Awake and alert. No obvious cranial nerve deficits. Motor grossly within normal limits. Normal speech. PSYCHIATRIC: Appropriate mood and affect; insight and judgment normal. Data Data Last Documented VS Vital Signs Date Time Temp Pulse Resp B/P Pulse Ox O2 Delivery O2 Flow Rate FiO2 03/27/17 20:31 68 20 100 03/27/17 20:30 Nasal Cannula 2 03/27/17 19:34 98.6 124/71 Orders Complete Blood Count With Diff (03/27/17 19:58) Comprehensive Metabolic Panel (03/27/17 19:58) Retic Count (03/27/17 19:58) Ecg Monitoring (03/27/17 19:58) Iv Access Insert/Monitor (03/27/17 19:58) Oximetry (03/27/17 19:58) Oxygen Administration (03/27/17 19:58) Sodium Chlor 0.9% 1000 Ml Inj (Ns 1000 M (03/27/17 19:58) Hydromorphone Pf Inj (Dilaudid Pf Inj) (03/27/17 22:15) Ondansetron Inj (Zofran Inj) (03/27/17 22:15) Labs Laboratory Tests Test 03/27/17 20:15 White Blood Count 7.6 TH/MM3 Red Blood Count 4.63 MIL/MM3 Hemoglobin 13.4 GM/DL Hematocrit 38.5 % Mean Corpuscular Volume 83.1 FL Mean Corpuscular Hemoglobin 28.9 PG Mean Corpuscular Hemoglobin 34.8 % Concent Red Cell Distribution Width 16.1 % Platelet Count 262 TH/MM3 Mean Platelet Volume 7.6 FL Neutrophils (%) (Auto) 45.8 % Lymphocytes (%) (Auto) 37.7 % Monocytes (%) (Auto) 11.1 % Eosinophils (%) (Auto) 4.3 % Basophils (%) (Auto) 1.1 % Neutrophils # (Auto) 3.5 TH/MM3 Lymphocytes # (Auto) 2.9 TH/MM3 Monocytes # (Auto) 0.8 TH/MM3 Eosinophils # (Auto) 0.3 TH/MM3 Basophils # (Auto) 0.1 TH/MM3 CBC Comment DIFF FINAL Differential Comment Reticulocyte Count 4.3 % Absolute Reticulocyte Count 197.9 MIL/L Sodium Level 138 MEQ/L Potassium Level 4.6 MEQ/L Chloride Level 102 MEQ/L Carbon Dioxide Level 30.1 MEQ/L Anion Gap 6 MEQ/L Blood Urea Nitrogen 9 MG/DL Creatinine 1.19 MG/DL Estimat Glomerular Filtration 88 ML/MIN Rate Random Glucose 81 MG/DL Calcium Level 8.9 MG/DL Total Bilirubin 1.7 MG/DL Aspartate Amino Transf 24 U/L (AST/SGOT) Alanine Aminotransferase 21 U/L (ALT/SGPT) Alkaline Phosphatase 109 U/L Total Protein 8.3 GM/DL Albumin 4.1 GM/DL MDM Medical Decision Making Medical Screen Exam Complete: Yes Emergency Medical Condition: Yes Interpretation(s) Vital Signs Date Time Temp Pulse Resp B/P Pulse Ox O2 Delivery O2 Flow Rate FiO2 03/27/17 20:31 68 20 100 03/27/17 20:30 100 Nasal Cannula 2 03/27/17 20:30 100 Nasal Cannula 2 03/27/17 19:34 98.6 77 16 124/71 95 Room Air Differential Diagnosis Dehydration versus vaso-occlusive crisis versus other Narrative Course Patient is a 26-year-old male presenting to emergency department due to a sickle cell crisis. Symptoms started yesterday. Patient is resting comfortably , he was on his cell phone. Labs ordered and pending. CBC is unremarkable. Chemistry is unremarkable. Patient has been resting comfortably, pain medication ordered per my attending physician. Patient was encouraged to maintain adequate fluid intake, avoid tobacco use, and to establish care with a primary doctor to better manage his chronic illness. He reports making an appointment is a clinic however he was advised that the is a clinic does take walk-ins. He was encouraged to follow-up in the next 1-2 days. Patient verbalizes understanding of these instructions. Patient stable for discharge. Diagnosis Primary Impression: Sickle-cell disease with pain Referrals: [facility] 2 days Patient Instructions: General Instructions, Sickle Cell Anemia (GEN), Narcotic given in the ED Additional Instructions: Establish care at the [facility] Maintain adequate fluid intake Avoid tobacco use Return to emergency department for any new or worsening symptoms Med/Other Pt SpecificInfo: Prescription(s) given Scripts Oxycodone-Acetaminophen (Percocet)5-325 mg Tab1 Tab PO Q4H PRN (PAIN) #12 TAB Ref 0 Prov:Laura Yang MD 03/27/17 Disposition: 01 DISCHARGE HOME Condition: Stable Saray Morel March 27, 2017 20:38
[2017-03-27 20:52] LABS: AUTOMATED NEUTROPHIL # 3.5 TH/MM3 (1.8-7.7); BASOPHIL # 0.1 TH/MM3 (0-0.2); BASOPHIL % 1.1 % (0.0-2.0); EOSINOPHIL # 0.3 TH/MM3 (0-0.4); EOSINOPHIL % 4.3 % (0.0-4.0); HEMATOCRIT 38.5 % (39.0-51.0); HEMO FLAGS DIFF FINAL; LYMPH % 37.7 % (9.0-44.0); LYMPHOCYTE # 2.9 TH/MM3 (1.0-4.8); MEAN CELL VOLUME 83.1 FL (80.0-100.0); MEAN CORPUSCULAR HEMOGLOBIN 28.9 PG (27.0-34.0); MEAN CORPUSCULAR HGB CONC 34.8 % (32.0-36.0); MONO % 11.1 % (0.0-8.0); NEUT % 45.8 % (16.0-70.0); PLATELET COUNT 262 TH/MM3 (150-450); RED BLOOD COUNT 4.63 MIL/MM3 (4.50-5.90); RED CELL DISTRIBUTION WIDTH 16.1 % (11.6-17.2); RETIC % 4.3 % (0.4-3.0); REVIEW FLAG FINAL; WHITE BLOOD COUNT 7.6 TH/MM3 (4.0-11.0)
[2017-03-27 21:23] LABS: ALKALINE PHOSPHATASE 109 U/L (45-117); ALT (GPT) 21 U/L (12-78); ANION GAP 6 MEQ/L (5-15); AST (GOT) 24 U/L (15-37); BICARBONATE 30.1 MEQ/L (21.0-32.0); BLOOD UREA NITROGEN 9 MG/DL (7-18); CHLORIDE 102 MEQ/L (98-107); GLOMERULAR FILTRATION RATE 88 ML/MIN (>89); POTASSIUM 4.6 MEQ/L (3.5-5.1); SODIUM (NA) 138 MEQ/L (136-145); TOTAL BILIRUBIN ADULT 1.7 MG/DL (0.2-1.0)
[2017-03-27] MEDS ORDERED: HYDROmorphone HCL PF 1 MG/ML VIAL IV PUSH ONE (22:15)
[2017-03-27] MEDS ORDERED: ONDANSETRON HCL 4 MG/2 ML VIAL IV PUSH ONE (22:15)
[2017-03-27] MEDS ORDERED: PERC5TAB12 PO (22:29)
[2017-03-27 23:46] VITALS: BP 102/56
[2017-03-27 23:48] VITALS: RESP 20
== END 2017-03-28 00:09 | disposition home or self-care (01) ==
LOC: NEPC 19:31
DX: D57.00 Hb-SS disease with crisis, unspecified (principal); R52 Pain, unspecified; F17.210 Nicotine dependence, cigarettes, uncomplicated
CPT/HCPCS: 80053; 85025; 85044; 96361; 96374; 96375; 99284; J1170; J2405; J7030

== ENCOUNTER 2017-04-17 00:18 | Emergency (ER) | payer MEDICAID ==
[~2017-04-17] VITALS: Ht 170.2 cm; Wt 75.0 kg
[~2017-04-17 00:18] MED LIST changes: -PERC10TA27 PO; +PERC5TAB12 PO
[2017-04-17 00:20] VITALS: BP 107/68; PULSE 66; RESP 16; TEMP 98; O2SAT 100
== END 2017-04-17 02:00 | disposition left against medical advice (07) ==
LOC: NED 00:18
DX: D57.1 Sickle-cell disease without crisis (principal)

== ENCOUNTER 2017-04-23 22:28 | Emergency (ER) | payer MEDICAID ==
[2017-04-23 22:30] VITALS: BP 119/67; PULSE 75; RESP 16; TEMP 98.8; O2SAT 98
[2017-04-23] MEDS ORDERED: SODIUM CHLOR 0.9% 1000 ML INJ 1,000 ML IV ONE (23:54)
[2017-04-24] MEDS ORDERED: KETOROLAC TROMETHAMINE 30 MG/ML (IVP) VIAL IVP ONE
[2017-04-24] MEDS ORDERED: HYDROmorphone HCL PF 1 MG/ML VIAL IVS ONE
[2017-04-24] MEDS ORDERED: diphenhydrAMINE HCL 50 MG/ML VIAL IV ONE
--- NOTE | 2017-04-24 00:01 | PD ---
HPI Chief Complaint: Sickle Cell Time Seen by Provider: 23:47 Travel History International Travel<30 days: No Contact w/Intl Traveler<30days: No Traveled to known affect area: No History of Present Illness HPI 26-year-old male complains of sickle cell crisis pain. Patient has history of sickle cell disease. Patient states that he does not have a local physician for follow-up. Patient states that the pain started yesterday. Patient states that all joints in the body has been in pain since yesterday. Patient denies any headache. Patient denies any chest pain or shortness of breath. Patient denies abdominal pain. Patient denies any nausea vomiting diarrhea. Patient denies any fever chills. On a scale of 1-10 the pain is a 9. PFSH Past Medical History Hx Anticoagulant Therapy: No Blood Disorders: Yes (SICKLE CELL) Cardiovascular Problems: No Chemotherapy: No Cerebrovascular Accident: No Diabetes: No Diminished Hearing: No Gastrointestinal Disorders: No Genitourinary: No Musculoskeletal: No Neurologic: No Reproductive: No Respiratory: No Immunizations Current: Yes Sickle Cell Disease: Yes ?: Not Past Surgical History Other Surgery: Yes (knee surgery) Social History Alcohol Use: No Tobacco Use: Yes (0.5 ppd ) Substance Use: No Allergies-Medications (Allergen,Severity, Reaction): Coded Allergies: No Known Allergies (Verified , 03/27/17) Reported Meds & Prescriptions Reported Meds & Active Scripts Active No Active Prescriptions or Reported Medications Review of Systems General / Constitutional: No: Fever Eyes: No: Visual changes HENT: No: Headaches Cardiovascular: No: Chest Pain or Discomfort Respiratory: No: Shortness of Breath Gastrointestinal: No: Abdominal Pain Genitourinary: No: Dysuria Musculoskeletal: Positive: Pain Skin: No Rash Neurologic: No: Weakness Psychiatric: No: Depression Endocrine: No: Polydipsia Hematologic/Lymphatic: No: Easy Bruising Physical Exam Narrative GENERAL: Well-nourished, well-developed patient. SKIN: Focused skin assessment warm/dry. HEAD: Normocephalic. EYES: No scleral icterus. No injection or drainage. NECK: Supple, trachea midline. No JVD or lymphadenopathy. CARDIOVASCULAR: Regular rate and rhythm without murmurs, gallops, or rubs. RESPIRATORY: Breath sounds equal bilaterally. No accessory muscle use. GASTROINTESTINAL: Abdomen soft, non-tender, nondistended. MUSCULOSKELETAL: No cyanosis, or edema. Patient has diffuse tenderness over the joints. No swelling no redness no heat. Full range of motion of all joints. BACK: Nontender without obvious deformity. No CVA tenderness. Neurologic exam normal. Data Data Last Documented VS Vital Signs Date Time Temp Pulse Resp B/P Pulse Ox O2 Delivery O2 Flow Rate FiO2 04/23/17 22:30 98.8 75 16 119/67 98 Room Air Orders Basic Metabolic Panel (Bmp) (04/23/17 23:54) Complete Blood Count With Diff (04/23/17 23:54) Retic Count (04/23/17 23:54) Ecg Monitoring (04/23/17 23:54) Iv Access Insert/Monitor (04/23/17 23:54) Oximetry (04/23/17 23:54) Ketorolac Inj (Toradol Inj) (04/24/17 00:00) Sodium Chlor 0.9% 1000 Ml Inj (Ns 1000 M (04/23/17 23:54) Hydromorphone Pf Inj (Dilaudid Pf Inj) (04/24/17 00:00) Diphenhydramine Inj (Benadryl Inj) (04/24/17 00:00) Labs Laboratory Tests Test 04/23/17 23:57 White Blood Count 9.6 TH/MM3 Red Blood Count 4.36 MIL/MM3 Hemoglobin 13.0 GM/DL Hematocrit 36.3 % Mean Corpuscular Volume 83.1 FL Mean Corpuscular Hemoglobin 29.7 PG Mean Corpuscular Hemoglobin 35.8 % Concent Red Cell Distribution Width 16.6 % Platelet Count 281 TH/MM3 Mean Platelet Volume 7.9 FL Neutrophils (%) (Auto) 57.2 % Lymphocytes (%) (Auto) 30.5 % Monocytes (%) (Auto) 8.6 % Eosinophils (%) (Auto) 2.4 % Basophils (%) (Auto) 1.3 % Neutrophils # (Auto) 5.5 TH/MM3 Lymphocytes # (Auto) 2.9 TH/MM3 Monocytes # (Auto) 0.8 TH/MM3 Eosinophils # (Auto) 0.2 TH/MM3 Basophils # (Auto) 0.1 TH/MM3 CBC Comment DIFF FINAL Differential Comment Reticulocyte Count 4.3 % Absolute Reticulocyte Count 186.6 MIL/L Sodium Level 141 MEQ/L Potassium Level 3.8 MEQ/L Chloride Level 107 MEQ/L Carbon Dioxide Level 29.2 MEQ/L Anion Gap 5 MEQ/L Blood Urea Nitrogen 10 MG/DL Creatinine 1.00 MG/DL Estimat Glomerular Filtration 108 ML/MIN Rate Random Glucose 91 MG/DL Calcium Level 8.9 MG/DL [facility] Medical Decision Making Medical Screen Exam Complete: Yes Emergency Medical Condition: Yes Interpretation(s) 1:22 AM. CBC with hemoglobin 13 hematocrit 36.3. Normal differential. Reticulocyte count 4.3. BMP within normal limit. Differential Diagnosis Differential diagnosis including sickle cell crisis, arthralgia, myalgia. Narrative Course 26-year-old male with joint pain. History of sickle cell disease. Normal saline solution 1 L IV bolus. Dilaudid 1 mg IV. Zofran 4 mg IV. Toradol 30 mg IV. Benadryl 25 mg IV. Diagnosis Primary Impression: Sickle cell pain crisis Patient Instructions: General Instructions Additional Instructions: Encourage by mouth fluid. Take medication as needed for pain. Follow-up with local physician. Return as needed. Med/Other Pt SpecificInfo: Prescription(s) given Scripts Hydrocodone-Acetaminophen ([place])5-325 mg Tab1 Tab PO Q6H PRN (PAIN) #20 TAB Prov:Mart Padron MD 04/24/17 Disposition: 01 DISCHARGE HOME Condition: Stable Mart Padron MD Apr 24, 2017 00:01
[2017-04-24 00:32] LABS: AUTOMATED NEUTROPHIL # 5.5 TH/MM3 (1.8-7.7); BASOPHIL # 0.1 TH/MM3 (0-0.2); BASOPHIL % 1.3 % (0.0-2.0); EOSINOPHIL # 0.2 TH/MM3 (0-0.4); EOSINOPHIL % 2.4 % (0.0-4.0); HEMATOCRIT 36.3 % (39.0-51.0); HEMO FLAGS DIFF FINAL; LYMPH % 30.5 % (9.0-44.0); LYMPHOCYTE # 2.9 TH/MM3 (1.0-4.8); MEAN CELL VOLUME 83.1 FL (80.0-100.0); MEAN CORPUSCULAR HEMOGLOBIN 29.7 PG (27.0-34.0); MEAN CORPUSCULAR HGB CONC 35.8 % (32.0-36.0); MONO % 8.6 % (0.0-8.0); NEUT % 57.2 % (16.0-70.0); PLATELET COUNT 281 TH/MM3 (150-450); RED BLOOD COUNT 4.36 MIL/MM3 (4.50-5.90); RED CELL DISTRIBUTION WIDTH 16.6 % (11.6-17.2); RETIC % 4.3 % (0.4-3.0); REVIEW FLAG FINAL; WHITE BLOOD COUNT 9.6 TH/MM3 (4.0-11.0)
[2017-04-24 00:38] LABS: BICARBONATE 29.2 MEQ/L (21.0-32.0); POTASSIUM 3.8 MEQ/L (3.5-5.1)
[2017-04-24] MEDS ORDERED: NORC5TAB PO (01:27)
== END 2017-04-24 01:58 | disposition home or self-care (01) ==
LOC: NEPC 22:28
DX: D57.00 Hb-SS disease with crisis, unspecified (principal)
CPT/HCPCS: 80048; 85025; 85044; 96374; 96375; 99284; J1170; J1200; J1885; J7030

== ENCOUNTER 2017-05-14 05:13 | Emergency (ER) | payer MEDICAID ==
[~2017-05-14] VITALS: Ht 167.6 cm; Wt 60.0 kg
[~2017-05-14 05:13] MED LIST changes: +NORC5TAB PO; -PERC5TAB12 PO
[2017-05-14 05:15] VITALS: BP 122/72; PULSE 71; RESP 16; TEMP 98.1; O2SAT 100
[2017-05-14 05:47] VITALS: BP 123/71; PULSE 68; RESP 16; TEMP 98.1; O2SAT 97
[2017-05-14] MEDS ORDERED: SODIUM CHLOR 0.9% 1000 ML INJ 1,000 ML IV ONE (07:03)
--- NOTE | 2017-05-14 07:07 | PD ---
HPI Chief Complaint: Sickle Cell Time Seen by Provider: 06:58 Travel History International Travel<30 days: No Contact w/Intl Traveler<30days: No Traveled to known affect area: No History of Present Illness HPI 26yo M with PMH of sickle cell disease presents to the ED with c/o pain in his legs that feels like his sickle cell crisis. States it has been going on for a month. Pt has frequent ED visits for this and does not really have a block press operator. Pt last came to the ED earlier this month. Denies any fever, chest pain, sob, n/v, abdominal pain, focal weakness or numbness. PFSH Past Medical History Hx Anticoagulant Therapy: No Blood Disorders: Yes (SICKLE CELL) Cardiovascular Problems: No Chemotherapy: No Cerebrovascular Accident: No Diabetes: No Diminished Hearing: No Gastrointestinal Disorders: No Genitourinary: No Musculoskeletal: No Neurologic: No Reproductive: No Respiratory: No Immunizations Current: Yes Sickle Cell Disease: Yes Past Surgical History Other Surgery: Yes (knee surgery) Social History Alcohol Use: No Tobacco Use: Yes (0.5 ppd ) Substance Use: No Allergies-Medications (Allergen,Severity, Reaction): Coded Allergies: No Known Allergies (Verified , 05/14/17) Reported Meds & Prescriptions Reported Meds & Active Scripts Active No Active Prescriptions or Reported Medications Review of Systems Except as stated in HPI: all other systems reviewed are Neg Physical Exam Narrative GENERAL: 26yo M in mild distress. SKIN: Focused skin assessment warm/dry. HEAD: Atraumatic. Normocephalic. EYES: Pupils equal and round. No scleral icterus. No injection or drainage. ENT: No nasal bleeding or discharge. Mucous membranes pink and moist. NECK: Trachea midline. No JVD. CARDIOVASCULAR: Regular rate and rhythm. No murmur appreciated. RESPIRATORY: No accessory muscle use. Clear to auscultation. Breath sounds equal bilaterally. GASTROINTESTINAL: Abdomen soft, non-tender, nondistended. No rebound tenderness or guarding. MUSCULOSKELETAL: No obvious deformities. No clubbing. No cyanosis. No edema. NEUROLOGICAL: Awake and alert. No obvious cranial nerve deficits. Motor grossly within normal limits. Normal speech. PSYCHIATRIC: Appropriate mood and affect; insight and judgment normal. Data Data Last Documented VS Vital Signs Date Time Temp Pulse Resp B/P Pulse Ox O2 Delivery O2 Flow Rate FiO2 05/14/17 07:20 68 18 123/71 96 Room Air 05/14/17 05:47 98.1 Orders Basic Metabolic Panel (Bmp) (05/14/17 07:03) Complete Blood Count With Diff (05/14/17 07:03) Retic Count (05/14/17 07:03) Iv Access Insert/Monitor (05/14/17 07:03) Sodium Chloride 0.9% Flush (Ns Flush) (05/14/17 07:15) Sodium Chlor 0.9% 1000 Ml Inj (Ns 1000 M (05/14/17 07:03) Hydromorphone Pf Inj (Dilaudid Pf Inj) (05/14/17 07:15) Hydromorphone Pf Inj (Dilaudid Pf Inj) (05/14/17 09:30) Labs Laboratory Tests Test 05/14/17 07:15 White Blood Count 9.6 TH/MM3 Red Blood Count 4.43 MIL/MM3 Hemoglobin 13.0 GM/DL Hematocrit 36.7 % Mean Corpuscular Volume 82.8 FL Mean Corpuscular Hemoglobin 29.4 PG Mean Corpuscular Hemoglobin 35.5 % Concent Red Cell Distribution Width 16.4 % Platelet Count 306 TH/MM3 Mean Platelet Volume 8.2 FL Neutrophils (%) (Auto) 39.1 % Lymphocytes (%) (Auto) 43.1 % Monocytes (%) (Auto) 11.5 % Eosinophils (%) (Auto) 4.9 % Basophils (%) (Auto) 1.4 % Neutrophils # (Auto) 3.7 TH/MM3 Lymphocytes # (Auto) 4.1 TH/MM3 Monocytes # (Auto) 1.1 TH/MM3 Eosinophils # (Auto) 0.5 TH/MM3 Basophils # (Auto) 0.1 TH/MM3 CBC Comment DIFF FINAL Differential Comment Reticulocyte Count 4.7 % Absolute Reticulocyte Count 207.0 MIL/L Sodium Level 139 MEQ/L Potassium Level 4.3 MEQ/L Chloride Level 105 MEQ/L Carbon Dioxide Level 28.6 MEQ/L Anion Gap 5 MEQ/L Blood Urea Nitrogen 15 MG/DL Creatinine 1.13 MG/DL Estimat Glomerular Filtration 94 ML/MIN Rate Random Glucose 78 MG/DL Calcium Level 8.9 MG/DL MDM Medical Decision Making Medical Screen Exam Complete: Yes Emergency Medical Condition: Yes Interpretation(s) Laboratory Tests Test 6/25/17 07:15 White Blood Count 9.6 TH/MM3 (4.0-11.0) Red Blood Count 4.43 MIL/MM3 (4.50-5.90) Hemoglobin 13.0 GM/DL (13.0-17.0) Hematocrit 36.7 % (39.0-51.0) Mean Corpuscular Volume 82.8 FL (80.0-100.0) Mean Corpuscular Hemoglobin 29.4 PG (27.0-34.0) Mean Corpuscular Hemoglobin 35.5 % Concent (32.0-36.0) Red Cell Distribution Width 16.4 % (11.6-17.2) Platelet Count 306 TH/MM3 (150-450) Mean Platelet Volume 8.2 FL (7.0-11.0) Neutrophils (%) (Auto) 39.1 % (16.0-70.0) Lymphocytes (%) (Auto) 43.1 % (9.0-44.0) Monocytes (%) (Auto) 11.5 % (0.0-8.0) Eosinophils (%) (Auto) 4.9 % (0.0-4.0) Basophils (%) (Auto) 1.4 % (0.0-2.0) Neutrophils # (Auto) 3.7 TH/MM3 (1.8-7.7) Lymphocytes # (Auto) 4.1 TH/MM3 (1.0-4.8) Monocytes # (Auto) 1.1 TH/MM3 (0-0.9) Eosinophils # (Auto) 0.5 TH/MM3 (0-0.4) Basophils # (Auto) 0.1 TH/MM3 (0-0.2) CBC Comment DIFF FINAL Differential Comment Reticulocyte Count 4.7 % (0.4-3.0) Absolute Reticulocyte Count 207.0 MIL/L (20.0-150.0) Sodium Level 139 MEQ/L (136-145) Potassium Level 4.3 MEQ/L (3.5-5.1) Chloride Level 105 MEQ/L (98-107) Carbon Dioxide Level 28.6 MEQ/L (21.0-32.0) Anion Gap 5 MEQ/L (5-15) Blood Urea Nitrogen 15 MG/DL (7-18) Creatinine 1.13 MG/DL (0.60-1.30) Estimat Glomerular Filtration 94 ML/MIN (>89) Rate Random Glucose 78 MG/DL (74-106) Calcium Level 8.9 MG/DL (8.5-10.1) Differential Diagnosis Vasoocclusive crisis Narrative Course 26yo M with PMH of sickle cell disease here with leg pain that feels like his sickle cell crisis. Denies any fever or chest pain or sob. Labs reviewed, no leukocytosis. H/H 13/36.7. Elevated reticulocyte count at 4.7. BMP unremarkable. Pt given NS IVF and dilaudid 1mg x2. Pt reevaluated at bedside and feels better. Muscle strength 5/5 in all extremities. Instructed pt to follow up with a block press operator as outpatient. VS stable. Return precautions given. Diagnosis Primary Impression: Sickle cell pain crisis Patient Instructions: General Instructions Departure Forms: Tests/Procedures Additional Instructions: Please follow up with a block press operator as outpatient. Return to the ED if symptoms worsen. Med/Other Pt SpecificInfo: No Change to Meds Scripts No Active Prescriptions or Reported Meds Disposition: 01 DISCHARGE HOME Condition: Stable Heather Kathleen DO May 14, 2017 07:07
[2017-05-14] MEDS ORDERED: SODIUM CHLORIDE 0.9% FLUSH 10 ML FLUSH IVF PRN (07:15)
[2017-05-14] MEDS ORDERED: HYDROmorphone HCL PF 1 MG/ML VIAL IVS ONE (07:15)
[2017-05-14 07:20] VITALS: BP 123/71; PULSE 68; RESP 18; O2SAT 96
[2017-05-14 07:25] LABS: AUTOMATED NEUTROPHIL # 3.7 TH/MM3 (1.8-7.7); BASOPHIL # 0.1 TH/MM3 (0-0.2); BASOPHIL % 1.4 % (0.0-2.0); EOSINOPHIL # 0.5 TH/MM3 (0-0.4); EOSINOPHIL % 4.9 % (0.0-4.0); HEMATOCRIT 36.7 % (39.0-51.0); HEMO FLAGS DIFF FINAL; LYMPH % 43.1 % (9.0-44.0); LYMPHOCYTE # 4.1 TH/MM3 (1.0-4.8); MEAN CELL VOLUME 82.8 FL (80.0-100.0); MEAN CORPUSCULAR HEMOGLOBIN 29.4 PG (27.0-34.0); MEAN CORPUSCULAR HGB CONC 35.5 % (32.0-36.0); MONO % 11.5 % (0.0-8.0); NEUT % 39.1 % (16.0-70.0); PLATELET COUNT 306 TH/MM3 (150-450); RED BLOOD COUNT 4.43 MIL/MM3 (4.50-5.90); RED CELL DISTRIBUTION WIDTH 16.4 % (11.6-17.2); RETIC % 4.7 % (0.4-3.0); REVIEW FLAG FINAL; WHITE BLOOD COUNT 9.6 TH/MM3 (4.0-11.0)
[2017-05-14 07:48] LABS: BICARBONATE 28.6 MEQ/L (21.0-32.0); POTASSIUM 4.3 MEQ/L (3.5-5.1)
[2017-05-14] MEDS ORDERED: HYDROmorphone HCL PF 1 MG/ML VIAL IV PUSH ONE (09:30)
== END 2017-05-14 10:47 | disposition home or self-care (01) ==
LOC: NEPE 05:13
DX: D57.00 Hb-SS disease with crisis, unspecified (principal); M79.604 Pain in right leg; M79.605 Pain in left leg; F17.200 Nicotine dependence, unspecified, uncomplicated
CPT/HCPCS: 80048; 85025; 85044; 96374; 96376; 99284; J1170; J7030

== ENCOUNTER 2017-06-18 20:02 | Emergency (ER) | payer MEDICAID ==
[~2017-06-18] VITALS: Ht 167.6 cm; Wt 62.0 kg
[2017-06-18 20:04] VITALS: BP 132/77; PULSE 67; RESP 16; TEMP 98.7; O2SAT 100
[2017-06-18 20:40] VITALS: BP 125/74; PULSE 65; RESP 16; O2SAT 99
[2017-06-18] MEDS ORDERED: HYDROmorphone HCL PF 1 MG/ML VIAL IV PUSH ONE ×2 (21:00→22:15)
[2017-06-18] MEDS ORDERED: SODIUM CHLOR 0.9% 1000 ML INJ 1,000 ML IV ONE (21:00)
--- NOTE | 2017-06-18 21:06 | PD ---
HPI Chief Complaint: Sickle Cell Time Seen by Provider: 21:02 Travel History International Travel<30 days: No Contact w/Intl Traveler<30days: No Traveled to known affect area: No History of Present Illness HPI 26 YO M with PMH of sickle cell anemia presents to the ED for evaluation of 2 day history "all over" body pain. Endorses weakness of the legs bilaterally. 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 States symptoms are similar to previous episodes of sickle cell crisis. No treatment at home. Patient states he does not have a primary care provider. PFSH Past Medical History Hx Anticoagulant Therapy: No Blood Disorders: Yes (SICKLE CELL) Cardiovascular Problems: No Chemotherapy: No Cerebrovascular Accident: No Diabetes: No Diminished Hearing: No Gastrointestinal Disorders: No Genitourinary: No Musculoskeletal: No Neurologic: No Reproductive: No Respiratory: No Immunizations Current: Yes Sickle Cell Disease: Yes Tetanus Vaccination: > 5 Years Influenza Vaccination: Yes Past Surgical History Other Surgery: Yes (knee surgery) Social History Alcohol Use: No Tobacco Use: Yes (0.5 ppd ) Substance Use: No Allergies-Medications (Allergen,Severity, Reaction): Coded Allergies: No Known Allergies (Verified , 05/14/17) Reported Meds & Prescriptions Reported Meds & Active Scripts Active No Active Prescriptions or Reported Medications Review of Systems Except as stated in HPI: all other systems reviewed are Neg Physical Exam Narrative GENERAL: Well-nourished, well-developed black male in no acute distress. Sitting up on the stretcher, watching TV. SKIN: Focused skin assessment warm/dry. HEAD: Normocephalic. EYES: No scleral icterus. No injection or drainage. NECK: Supple, trachea midline. No JVD or lymphadenopathy. CARDIOVASCULAR: Regular rate and rhythm without murmurs, gallops, or rubs. 2+ DP and radial pulses bilaterally. RESPIRATORY: Breath sounds clear and equal bilaterally. No accessory muscle use. GASTROINTESTINAL: Abdomen soft, non-tender, nondistended. MUSCULOSKELETAL: No cyanosis, or edema. 5/5 strength in all muscle groups of the lower extremities bilaterally. BACK: Nontender without obvious deformity. No CVA tenderness. Data Data Last Documented VS Vital Signs Date Time Temp Pulse Resp B/P Pulse Ox O2 Delivery O2 Flow Rate FiO2 06/18/17 20:40 65 16 125/74 99 Room Air 06/18/17 20:04 98.7 Orders Complete Blood Count With Diff (06/18/17 20:49) Retic Count (06/18/17 20:49) Iv Access Insert/Monitor (06/18/17 20:49) Comprehensive Metabolic Panel (06/18/17 20:49) Sodium Chlor 0.9% 1000 Ml Inj (Ns 1000 M (06/18/17 21:00) Hydromorphone Pf Inj (Dilaudid Pf Inj) (06/18/17 21:00) Hydromorphone Pf Inj (Dilaudid Pf Inj) (06/18/17 22:15) Labs Laboratory Tests Test 06/18/17 20:50 White Blood Count 7.6 TH/MM3 Red Blood Count 4.48 MIL/MM3 Hemoglobin 13.3 GM/DL Hematocrit 37.7 % Mean Corpuscular Volume 84.2 FL Mean Corpuscular Hemoglobin 29.6 PG Mean Corpuscular Hemoglobin 35.2 % Concent Red Cell Distribution Width 16.8 % Platelet Count 267 TH/MM3 Mean Platelet Volume 7.8 FL Neutrophils (%) (Auto) 51.8 % Lymphocytes (%) (Auto) 35.8 % Monocytes (%) (Auto) 8.9 % Eosinophils (%) (Auto) 2.7 % Basophils (%) (Auto) 0.8 % Neutrophils # (Auto) 3.9 TH/MM3 Lymphocytes # (Auto) 2.7 TH/MM3 Monocytes # (Auto) 0.7 TH/MM3 Eosinophils # (Auto) 0.2 TH/MM3 Basophils # (Auto) 0.1 TH/MM3 CBC Comment DIFF FINAL Differential Comment Reticulocyte Count 4.2 % Absolute Reticulocyte Count 185.6 MIL/L Sodium Level 140 MEQ/L Potassium Level 3.8 MEQ/L Chloride Level 106 MEQ/L Carbon Dioxide Level 28.8 MEQ/L Anion Gap 5 MEQ/L Blood Urea Nitrogen 6 MG/DL Creatinine 0.99 MG/DL Estimat Glomerular Filtration 109 ML/MIN Rate Random Glucose 78 MG/DL Calcium Level 8.6 MG/DL Total Bilirubin 1.7 MG/DL Aspartate Amino Transf 22 U/L (AST/SGOT) Alanine Aminotransferase 26 U/L (ALT/SGPT) Alkaline Phosphatase 88 U/L Total Protein 7.7 GM/DL Albumin 3.9 GM/DL MDM Medical Decision Making Medical Screen Exam Complete: Yes Emergency Medical Condition: Yes Differential Diagnosis sickle cell pain crisis versus sickle cell anemia versus drug seeking behavior versus malingering versus other Narrative Course 26 YO M with PMH of sickle cell anemia presents to the ED for evaluation of 2 day history "all over" body pain, similar to previous episodes of sickle cell crisis. No treatment at home. No PCP. Vitals reviewed. On exam the patient is sitting up in the bed, watching television. No appreciable M/R/G. Chest CTA B. No lower extremity edema. 5/5 strength in the bilateral lower extremities. Patient was administered 1 L normal saline and 1 mg of Dilaudid IV. H&H: 13.3/37.7. Reticulocyte count: 4.2 On recheck the patient still complains of pain, was administered an additional 1mg Dilaudid. Discharged with [facility] information, instructed to follow up with hematology. He is stable and discharged home. Diagnosis Primary Impression: Sickle cell pain crisis Referrals: [facility] Patient Instructions: General Instructions, Sickle Cell Crisis (ED) Additional Instructions: Rest, hydrate. Follow-up with the [facility] to establish primary care and be referred to a plastic surgery manager. Return to the ED for any urgent or emergent medical condition. Scripts No Active Prescriptions or Reported Meds Disposition: 01 DISCHARGE HOME Condition: Stable Julia Mercado Jun 18, 2017 21:06
[2017-06-18 21:24] LABS: AUTOMATED NEUTROPHIL # 3.9 TH/MM3 (1.8-7.7); BASOPHIL # 0.1 TH/MM3 (0-0.2); BASOPHIL % 0.8 % (0.0-2.0); EOSINOPHIL # 0.2 TH/MM3 (0-0.4); EOSINOPHIL % 2.7 % (0.0-4.0); HEMATOCRIT 37.7 % (39.0-51.0); HEMO FLAGS DIFF FINAL; LYMPH % 35.8 % (9.0-44.0); LYMPHOCYTE # 2.7 TH/MM3 (1.0-4.8); MEAN CELL VOLUME 84.2 FL (80.0-100.0); MEAN CORPUSCULAR HEMOGLOBIN 29.6 PG (27.0-34.0); MEAN CORPUSCULAR HGB CONC 35.2 % (32.0-36.0); MONO % 8.9 % (0.0-8.0); NEUT % 51.8 % (16.0-70.0); PLATELET COUNT 267 TH/MM3 (150-450); RED BLOOD COUNT 4.48 MIL/MM3 (4.50-5.90); RED CELL DISTRIBUTION WIDTH 16.8 % (11.6-17.2); RETIC % 4.2 % (0.4-3.0); REVIEW FLAG FINAL; WHITE BLOOD COUNT 7.6 TH/MM3 (4.0-11.0)
[2017-06-18 21:39] LABS: ANION GAP 5 MEQ/L (5-15); AST (GOT) 22 U/L (15-37); BICARBONATE 28.8 MEQ/L (21.0-32.0); BLOOD UREA NITROGEN 6 MG/DL (7-18); CHLORIDE 106 MEQ/L (98-107); GLOMERULAR FILTRATION RATE 109 ML/MIN (>89); POTASSIUM 3.8 MEQ/L (3.5-5.1); SODIUM (NA) 140 MEQ/L (136-145)
[2017-06-18 21:40] LABS: ALT (GPT) 26 U/L (12-78)
[2017-06-18 21:42] LABS: ALKALINE PHOSPHATASE 88 U/L (45-117); TOTAL BILIRUBIN ADULT 1.7 MG/DL (0.2-1.0)
[2017-06-18 23:10] VITALS: BP 116/65
== END 2017-06-18 23:11 | disposition home or self-care (01) ==
LOC: NEPE 20:02
DX: D57.00 Hb-SS disease with crisis, unspecified (principal)
CPT/HCPCS: 80053; 85025; 85044; 96374; 96376; 99284; J1170; J7030

== ENCOUNTER 2017-07-10 21:44 | Emergency (ER) | payer MEDICAID ==
[~2017-07-10] VITALS: Ht 167.6 cm; Wt 62.0 kg
[2017-07-10 21:46] VITALS: BP 116/56; PULSE 74; RESP 16; TEMP 98.4; O2SAT 98
--- NOTE | 2017-07-10 21:51 | PD ---
Physical Exam Date Seen by Provider: Jul 10, 2017 Time Seen by Provider: 21:49 Narrative 26 y/o male with c/o sickle cell crisis off and on for the last month. Pain worse today, especially in the right leg. No fever Chills or SOB. Vital Signs reviewed. Patient is Stable and awaiting Bed Placement. Data Data Last Documented VS Vital Signs Date Time Temp Pulse Resp B/P (MAP) Pulse Ox O2 Delivery O2 Flow Rate FiO2 07/10/17 21:46 98.4 74 16 116/56 (76) 98 MDM Medical Record Reviewed: Yes Supervised Visit with BONNY: Yes Scripts No Active Prescriptions or Reported Meds Condition: Stable Esdras Almanza Jul 10, 2017 21:51
[2017-07-10] MEDS ORDERED: SODIUM CHLOR 0.9% 1000 ML INJ 1,000 ML IV ONE (22:21)
[2017-07-10] MEDS ORDERED: SODIUM CHLORIDE 0.9% FLUSH 10 ML FLUSH IVF PRN (22:30)
[2017-07-10] MEDS ORDERED: ONDANSETRON HCL 4 MG/2 ML VIAL IVP ONE (22:30)
[2017-07-10] MEDS ORDERED: diphenhydrAMINE HCL 50 MG/ML VIAL IV ONE (22:30)
[2017-07-10] MEDS ORDERED: MORPHINE SULFATE 8 MG/ML INJ IV PUSH ONE (22:30)
[2017-07-10 22:33] VITALS: BP 113/64; PULSE 79; TEMP 98.1; O2SAT 100
[2017-07-10] MEDS ORDERED: HYDR-3533 PO (23:04)
--- NOTE | 2017-07-10 23:05 | PD ---
HPI Chief Complaint: Sickle Cell Time Seen by Provider: 22:12 Travel History International Travel<30 days: No Contact w/Intl Traveler<30days: No Traveled to known affect area: No History of Present Illness HPI The patient's 26 years old. He has history of sickle cell disease and has had pain primarily in the legs although throughout his whole body at times for a month. He has no shortness of breath fever or cough. He has no chest pain. For the past 2 days the pain has become constant. He states the pain is severe at times. He's had difficulty establishing follow-up in the area and has found no benefit from [id number] analgesics including ibuprofen. PFSH Past Medical History Hx Anticoagulant Therapy: No Asthma: Yes Blood Disorders: Yes (SICKLE CELL) Cardiovascular Problems: No Chemotherapy: No Cerebrovascular Accident: No Diabetes: No Diminished Hearing: No Gastrointestinal Disorders: No Genitourinary: No Musculoskeletal: No Neurologic: No Reproductive: No Respiratory: No Immunizations Current: Yes Sickle Cell Disease: Yes Influenza Vaccination: Yes Past Surgical History Other Surgery: Yes (R+ Knee) Social History Alcohol Use: No Tobacco Use: Yes Substance Use: Yes Allergies-Medications (Allergen,Severity, Reaction): Coded Allergies: No Known Allergies (Verified , 07/10/17) Reported Meds & Prescriptions Reported Meds & Active Scripts Active Lortab (Hydrocodone-Acetaminophen) 5-325 Mg Tab 1-2 Tab PO Q6H PRN 30 Days Review of Systems Except as stated in HPI: all other systems reviewed are Neg General / Constitutional: No: Fever Physical Exam Narrative GENERAL: 26-year-old male well-nourished well-developed pleasant mild distress SKIN: Warm and dry. HEAD: Atraumatic. Normocephalic. EYES: Pupils equal and round. No scleral icterus. No injection or drainage. ENT: No nasal bleeding or discharge. Mucous membranes pink and moist. NECK: Trachea midline. No JVD. CARDIOVASCULAR: Regular rate and rhythm. RESPIRATORY: No accessory muscle use. Clear to auscultation. Breath sounds equal bilaterally. GASTROINTESTINAL: Abdomen soft, non-tender, nondistended. Hepatic and splenic margins not palpable. MUSCULOSKELETAL: Extremities without clubbing, cyanosis, or edema. No obvious deformities. NEUROLOGICAL: Awake and alert. No obvious cranial nerve deficits. Motor grossly within normal limits. Five out of 5 muscle strength in the arms and legs. Normal speech. PSYCHIATRIC: Appropriate mood and affect; insight and judgment normal. Data Data Last Documented VS Vital Signs Date Time Temp Pulse Resp B/P (MAP) Pulse Ox O2 Delivery O2 Flow Rate FiO2 07/10/17 22:33 98.1 79 113/64 (80) 100 Room Air 07/10/17 21:46 16 Vital signs reviewed Orders Orders Ecg Monitoring (07/10/17 22:21) Iv Access Insert/Monitor (07/10/17 22:21) Oximetry (07/10/17 22:21) Ondansetron Inj (Zofran Inj) (07/10/17 22:30) Sodium Chloride 0.9% Flush (Ns Flush) (07/10/17 22:30) Sodium Chlor 0.9% 1000 Ml Inj (Ns 1000 M (07/10/17 22:21) Morphine Inj (Morphine Inj) (07/10/17 22:30) Diphenhydramine Inj (Benadryl Inj) (07/10/17 22:30) Hydromorphone Pf Inj (Dilaudid Pf Inj) (07/10/17 23:15) [facility] Medical Decision Making Medical Screen Exam Complete: Yes Emergency Medical Condition: Yes Medical Record Reviewed: Yes Differential Diagnosis Anemia, sickle cell anemia, pulmonary embolism, sepsis, avascular necrosis, septic arthritis Narrative Course The patient's pain has been controlled. He is suitable for discharge home. Opioid precautions discussed. Diagnosis Primary Impression: Sickle cell pain crisis Referrals: Oncologist 2 days Additional Instructions: You have a choice when it comes to health care, and we are glad that you chose [facility]. Hopefully, we have met your expectations on today's visit. You are welcome to return to [facility] at any time, as we are committed to meeting the health care needs of our community. Med/Other Pt SpecificInfo: Prescription(s) given Scripts Hydrocodone-Acetaminophen (Lortab) 5-325 Mg Tab 1-2 TAB PO Q6H Y for PAIN SCALE 6 TO 10 for 30 Days, TAB 0 Refills Prov: Stiven Lewis MD 07/10/17 Disposition: 01 DISCHARGE HOME Condition: Stable Stiven Lewis MD Jul 10, 2017 23:04
[2017-07-10] MEDS ORDERED: HYDROmorphone HCL PF 1 MG/ML VIAL IV PUSH ONE (23:15)
== END 2017-07-10 23:48 | disposition home or self-care (01) ==
LOC: NEPD 21:44
DX: D57.00 Hb-SS disease with crisis, unspecified (principal); Z72.0 Tobacco use
CPT/HCPCS: 96361; 96374; 96375; 99284; J1170; J1200; J2270; J2405; J7030

== ENCOUNTER 2017-07-17 18:33 | Emergency (ER) | payer MEDICAID ==
[~2017-07-17] VITALS: Ht 167.6 cm; Wt 62.0 kg
[~2017-07-17 18:33] MED LIST changes: +HYDR-3533 PO; -NORC5TAB PO
[2017-07-17 18:34] VITALS: BP 136/78; PULSE 67; RESP 15; TEMP 98.4; O2SAT 98
[2017-07-17 20:48] VITALS: BP 132/68; PULSE 55; RESP 16; TEMP 98.3; O2SAT 99
[2017-07-17] MEDS ORDERED: SODIUM CHLOR 0.9% 1000 ML INJ 1,000 ML IV ONE (20:56)
[2017-07-17] MEDS ORDERED: SODIUM CHLORIDE 0.9% FLUSH 10 ML FLUSH IVF PRN (21:00)
[2017-07-17] MEDS ORDERED: HYDROmorphone HCL PF 1 MG/ML VIAL IVS ONE (21:00)
--- NOTE | 2017-07-17 21:06 | PD ---
HPI Chief Complaint: Pain: Acute or Chronic Time Seen by Provider: 20:57 Travel History International Travel<30 days: No Contact w/Intl Traveler<30days: No Traveled to known affect area: No History of Present Illness HPI Patient comes in complaining of sickle cell pain. Patient states this began around 4:30-5:00 while at work. Patient has pain is sharp stabbing like in nature patient states this feels more intense than his normal sickle cell pain. Patient's pain is worse in his bilateral lower extremities, but describes the pain is all over. Denies any chest pain, shortness breath, nausea, vomiting, headaches, loss or change in bowel or bladder, or fevers. Patient states he did not try taking his home pain medications and does not feel as though it works for him. Patient states he has not been able to get in with a primary care doctor secondary to his insurance having him go to [place] or [facility] unable to make it to either location. PFSH Past Medical History Hx Anticoagulant Therapy: No Asthma: Yes Blood Disorders: Yes (SICKLE CELL) Cardiovascular Problems: No Chemotherapy: No Cerebrovascular Accident: No Diabetes: No Diminished Hearing: No Gastrointestinal Disorders: No Genitourinary: No Musculoskeletal: No Neurologic: No Reproductive: No Respiratory: No Immunizations Current: Yes Sickle Cell Disease: Yes Tetanus Vaccination: Unknown Past Surgical History Surgical History: No Previous Surgery Other Surgery: Yes (R+ Knee) Social History Alcohol Use: No Tobacco Use: No Substance Use: No Allergies-Medications (Allergen,Severity, Reaction): Coded Allergies: No Known Allergies (Verified , 07/17/17) Reported Meds & Prescriptions Reported Meds & Active Scripts Active Lortab (Hydrocodone-Acetaminophen) 5-325 Mg Tab 1-2 Tab PO Q6H PRN 30 Days Review of Systems Except as stated in HPI: all other systems reviewed are Neg Physical Exam Narrative GENERAL: Well-developed, well nourished, in no acute distress, and non-ill appearing. SKIN: Focused skin assessment warm and dry. HEAD: Atraumatic. Normocephalic. EYES: Pupils equal and round. EOMI. No scleral icterus. No injection or drainage. ENT: No nasal bleeding or discharge. Mucous membranes pink and moist. NECK: Trachea midline. Supple. No nuclear rigidity. CARDIOVASCULAR: Regular rate and rhythm. No murmur appreciated. RESPIRATORY: No accessory muscle use. No respiratory distress. Clear to auscultation. Breath sounds equal bilaterally. GASTROINTESTINAL: Abdomen soft, non-tender, nondistended, and no guarding. Hepatic and splenic margins not palpable. No pulsatile mass. MUSCULOSKELETAL: No obvious deformities. No clubbing. No cyanosis. No edema. Full range of motion. NEUROLOGICAL: Awake and alert. No obvious cranial nerve deficits. Motor grossly within normal limits. Normal speech. PSYCHIATRIC: Appropriate mood and affect; insight and judgment normal. Data Data Last Documented VS Vital Signs Date Time Temp Pulse Resp B/P (MAP) Pulse Ox O2 Delivery O2 Flow Rate FiO2 07/17/17 21:37 59 14 132/68 (89) 96 Room Air 07/17/17 20:48 98.3 Orders Orders Complete Blood Count With Diff (07/17/17 20:56) Retic Count (07/17/17 20:56) Ecg Monitoring (07/17/17 20:56) Iv Access Insert/Monitor (07/17/17 20:56) Oximetry (07/17/17 20:56) Sodium Chloride 0.9% Flush (Ns Flush) (07/17/17 21:00) Sodium Chlor 0.9% 1000 Ml Inj (Ns 1000 M (07/17/17 20:56) Hydromorphone Pf Inj (Dilaudid Pf Inj) (07/17/17 21:00) Morphine Inj (Morphine Inj) (07/17/17 22:00) Labs Laboratory Tests Test 07/17/17 21:10 White Blood Count 9.5 TH/MM3 Red Blood Count 4.67 MIL/MM3 Hemoglobin 13.5 GM/DL Hematocrit 40.2 % Mean Corpuscular Volume 86.1 FL Mean Corpuscular Hemoglobin 28.9 PG Mean Corpuscular Hemoglobin Concent 33.5 % Red Cell Distribution Width 16.8 % Platelet Count 274 TH/MM3 Mean Platelet Volume 8.0 FL Neutrophils (%) (Auto) 48.0 % Lymphocytes (%) (Auto) 39.1 % Monocytes (%) (Auto) 9.2 % Eosinophils (%) (Auto) 3.1 % Basophils (%) (Auto) 0.6 % Neutrophils # (Auto) 4.6 TH/MM3 Lymphocytes # (Auto) 3.7 TH/MM3 Monocytes # (Auto) 0.9 TH/MM3 Eosinophils # (Auto) 0.3 TH/MM3 Basophils # (Auto) 0.1 TH/MM3 CBC Comment DIFF FINAL Differential Comment Reticulocyte Count 5.3 % Absolute Reticulocyte Count 249.5 MIL/L MDM Medical Decision Making Medical Screen Exam Complete: Yes Emergency Medical Condition: Yes Medical Record Reviewed: Yes Differential Diagnosis Sickle cell crisis, sickle cell pain, anemia, other Narrative Course Patient reassessed discussed the laboratory findings with patient. Patient states he still having pain has not improved much. States Dilaudid does not normally work for him. Patient states morphine usually works for his sickle cell pain. Patient he got Dilaudid last couple visits here. Patient states that he has not. With patient 1 dose of morphine discharge home. Patient was agreeable to this. Patient reports he has an appointment with [facility] next week. Patient in no obvious distress upon re-evaluation. All pertinent laboratory result(s) discussed with patient. Discussed patient with Dr. Kathleen prior discharge, who is in agreement with plan of care and disposition. Any questions /concerns in reference to patient diagnosis/condition discussed and clarified prior to patient's discharge. Reinforced sheer importance of close follow up with patient's primary physician or primary care clinic. Instructed patient to return to ED immediately, if symptoms return/worsen. Pt showed understanding of above instructions. Further instructions and recommendations were detailed in discharge paperwork. Pt ambulated without difficulty out of ED at discharge. Diagnosis Primary Impression: Sickle-cell disease with pain Referrals: [facility] Additional Instructions: Follow-up with [facility] as scheduled. Return to the emergency department if symptoms get worse. Disposition: 01 DISCHARGE HOME Condition: Stable Nick Reyes Jul 17, 2017 21:06
[2017-07-17 21:37] VITALS: BP 132/68; PULSE 59; RESP 14; O2SAT 96
[2017-07-17 21:49] LABS: AUTOMATED NEUTROPHIL # 4.6 TH/MM3 (1.8-7.7); BASOPHIL # 0.1 TH/MM3 (0-0.2); BASOPHIL % 0.6 % (0.0-2.0); EOSINOPHIL # 0.3 TH/MM3 (0-0.4); EOSINOPHIL % 3.1 % (0.0-4.0); HEMATOCRIT 40.2 % (39.0-51.0); HEMO FLAGS DIFF FINAL; LYMPH % 39.1 % (9.0-44.0); LYMPHOCYTE # 3.7 TH/MM3 (1.0-4.8); MEAN CELL VOLUME 86.1 FL (80.0-100.0); MEAN CORPUSCULAR HEMOGLOBIN 28.9 PG (27.0-34.0); MEAN CORPUSCULAR HGB CONC 33.5 % (32.0-36.0); MONO % 9.2 % (0.0-8.0); PLATELET COUNT 274 TH/MM3 (150-450); RED BLOOD COUNT 4.67 MIL/MM3 (4.50-5.90); RED CELL DISTRIBUTION WIDTH 16.8 % (11.6-17.2); RETIC % 5.3 % (0.4-3.0); REVIEW FLAG FINAL; WHITE BLOOD COUNT 9.5 TH/MM3 (4.0-11.0)
[2017-07-17] MEDS ORDERED: MORPHINE SULFATE 4 MG/ML INJ IV PUSH ONE (22:00)
== END 2017-07-17 22:10 | disposition home or self-care (01) ==
LOC: NEPE 18:33
DX: D57.00 Hb-SS disease with crisis, unspecified (principal); Z87.09 Personal history of other diseases of the respiratory system; Z86.2 Personal history of diseases of the blood and blood-forming organs and certain disorders involving the immune mechanism
CPT/HCPCS: 85025; 85044; 96361; 96374; 96375; 99284; J1170; J2270; J7030

== ENCOUNTER 2017-08-05 16:14 | Emergency (ER) | payer MEDICAID ==
[2017-08-05 16:16] VITALS: BP 125/71; PULSE 97; RESP 16; TEMP 98.2; O2SAT 98
[2017-08-05] MEDS ORDERED: SODIUM CHLOR 0.9% 1000 ML INJ 1,000 ML IV ONE (17:00)
[2017-08-05] MEDS ORDERED: HYDROmorphone HCL PF 1 MG/ML VIAL IV PUSH ONE ×2 (17:00→18:30)
--- NOTE | 2017-08-05 17:12 | PD ---
HPI Chief Complaint: Sickle Cell Time Seen by Provider: 16:35 Travel History International Travel<30 days: No Contact w/Intl Traveler<30days: No Traveled to known affect area: No History of Present Illness HPI 26yo M with PMH of sickle cell disease presents to the ED stating he is in sickle cell crisis. States he has generalized pain and feels like his sickle cell. Denies any fever, chest pain, sob, n/v, abdominal pain, focal weakness or numbness. PFSH Past Medical History Hx Anticoagulant Therapy: No Asthma: Yes Blood Disorders: Yes (SICKLE CELL) Cardiovascular Problems: No Chemotherapy: No Cerebrovascular Accident: No Diabetes: No Diminished Hearing: No Gastrointestinal Disorders: No Genitourinary: No Musculoskeletal: No Neurologic: No Reproductive: No Respiratory: No Immunizations Current: Yes Sickle Cell Disease: Yes Tetanus Vaccination: < 5 Years Past Surgical History Other Surgery: Yes (R+ Knee) Social History Alcohol Use: No Tobacco Use: Yes Substance Use: No Allergies-Medications (Allergen,Severity, Reaction): Coded Allergies: No Known Allergies (Verified , 08/05/17) Reported Meds & Prescriptions Reported Meds & Active Scripts Active No Active Prescriptions or Reported Medications Review of Systems Except as stated in HPI: all other systems reviewed are Neg Physical Exam Narrative GENERAL: 26yo M in mild distress. SKIN: Focused skin assessment warm/dry. HEAD: Atraumatic. Normocephalic. EYES: Pupils equal and round. No scleral icterus. No injection or drainage. ENT: No nasal bleeding or discharge. Mucous membranes pink and moist. NECK: Trachea midline. No JVD. CARDIOVASCULAR: Regular rate and rhythm. No murmur appreciated. RESPIRATORY: No accessory muscle use. Clear to auscultation. Breath sounds equal bilaterally. GASTROINTESTINAL: Abdomen soft, non-tender, nondistended. MUSCULOSKELETAL: No obvious deformities. No clubbing. No cyanosis. No edema. NEUROLOGICAL: Awake and alert. No obvious cranial nerve deficits. Motor grossly within normal limits. Normal speech. PSYCHIATRIC: Appropriate mood and affect; insight and judgment normal. Data Data Last Documented VS Vital Signs Date Time Temp Pulse Resp B/P (MAP) Pulse Ox O2 Delivery O2 Flow Rate FiO2 08/05/17 18:00 67 17 105/58 (74) 97 Room Air 08/05/17 16:16 98.2 Orders Orders Hydromorphone Pf Inj (Dilaudid Pf Inj) (08/05/17 17:00) Sodium Chlor 0.9% 1000 Ml Inj (Ns 1000 M (08/05/17 17:00) Basic Metabolic Panel (Bmp) (08/05/17 16:59) Complete Blood Count With Diff (08/05/17 16:59) Retic Count (08/05/17 16:59) Hydromorphone Pf Inj (Dilaudid Pf Inj) (08/05/17 18:30) Sodium Chlor 0.9% 1000 Ml Inj (Ns 1000 M (08/05/17 18:30) Labs Laboratory Tests Test 08/05/17 17:15 White Blood Count 9.0 TH/MM3 Red Blood Count 4.41 MIL/MM3 Hemoglobin 13.5 GM/DL Hematocrit 38.0 % Mean Corpuscular Volume 86.1 FL Mean Corpuscular Hemoglobin 30.7 PG Mean Corpuscular Hemoglobin Concent 35.6 % Red Cell Distribution Width 16.5 % Platelet Count 296 TH/MM3 Mean Platelet Volume 8.1 FL Neutrophils (%) (Auto) 54.3 % Lymphocytes (%) (Auto) 29.3 % Monocytes (%) (Auto) 14.7 % Eosinophils (%) (Auto) 1.2 % Basophils (%) (Auto) 0.5 % Neutrophils # (Auto) 4.9 TH/MM3 Lymphocytes # (Auto) 2.6 TH/MM3 Monocytes # (Auto) 1.3 TH/MM3 Eosinophils # (Auto) 0.1 TH/MM3 Basophils # (Auto) 0.0 TH/MM3 CBC Comment DIFF FINAL Differential Comment Reticulocyte Count 3.6 % Absolute Reticulocyte Count 157.3 MIL/L Blood Urea Nitrogen 12 MG/DL Creatinine 1.10 MG/DL Random Glucose 60 MG/DL Calcium Level 9.7 MG/DL Sodium Level 136 MEQ/L Potassium Level 4.3 MEQ/L Chloride Level 103 MEQ/L Carbon Dioxide Level 25.5 MEQ/L Anion Gap 8 MEQ/L Estimat Glomerular Filtration Rate 97 ML/MIN [facility] Medical Decision Making Medical Screen Exam Complete: Yes Emergency Medical Condition: Yes Differential Diagnosis Vasoocclusive crisis Narrative Course 26yo M with sickle cell disease here with generalized pain that feels like his sickle cell. No chest pain, sob, or fever. Labs reviewed, no leukocytosis. H/ H 13.5/38.0. Glucose low at 60. Will give juice and food. Pt given dilaudid 1mg x2 and NS IVF x2. Pt reevaluated at bedside with improvement of pain. Return precautions given. Diagnosis Primary Impression: Sickle cell pain crisis Patient Instructions: General Instructions Departure Forms: Tests/Procedures Additional Instructions: Please follow up with your surveillance agent as an outpatient. Return to the ED if symptoms worsen. Med/Other Pt SpecificInfo: No Change to Meds Scripts No Active Prescriptions or Reported Meds Disposition: 01 DISCHARGE HOME Condition: Stable Heather Kathleen DO Aug 05, 2017 17:12
[2017-08-05 17:37] LABS: EOSINOPHIL % 1.2 % (0.0-4.0); HEMO FLAGS DIFF FINAL; LYMPH % 29.3 % (9.0-44.0); MEAN CELL VOLUME 86.1 FL (80.0-100.0); MEAN CORPUSCULAR HEMOGLOBIN 30.7 PG (27.0-34.0); MEAN CORPUSCULAR HGB CONC 35.6 % (32.0-36.0); MONO % 14.7 % (0.0-8.0); NEUT % 54.3 % (16.0-70.0); PLATELET COUNT 296 TH/MM3 (150-450); RED BLOOD COUNT 4.41 MIL/MM3 (4.50-5.90); RED CELL DISTRIBUTION WIDTH 16.5 % (11.6-17.2); REVIEW FLAG FINAL
[2017-08-05 17:38] LABS: AUTOMATED NEUTROPHIL # 4.9 TH/MM3 (1.8-7.7); BASOPHIL % 0.5 % (0.0-2.0); EOSINOPHIL # 0.1 TH/MM3 (0-0.4); LYMPHOCYTE # 2.6 TH/MM3 (1.0-4.8); RETIC % 3.6 % (0.4-3.0)
[2017-08-05 18:00] VITALS: BP 105/58; PULSE 67; RESP 17; O2SAT 97
[2017-08-05 18:11] LABS: BICARBONATE 25.5 MEQ/L (21.0-32.0)
[2017-08-05 18:12] LABS: POTASSIUM 4.3 MEQ/L (3.5-5.1)
[2017-08-05] MEDS: SODIUM CHLOR 0.9% 1000 ML INJ 1,000 ML IV ONE ×2 (18:50→19:30)
[2017-08-05 20:05] VITALS: BP 116/71
== END 2017-08-05 20:10 | disposition home or self-care (01) ==
LOC: NEPE 16:14
DX: D57.00 Hb-SS disease with crisis, unspecified (principal); M79.1 Myalgia
CPT/HCPCS: 80048; 85025; 85044; 96361; 96374; 96376; 99284; J1170; J7030

== ENCOUNTER 2017-08-07 17:06 | Emergency (ER) | payer MEDICAID ==
[~2017-08-07] VITALS: Ht 167.6 cm; Wt 65.0 kg
[2017-08-07 17:08] VITALS: BP 127/69; PULSE 90; RESP 20; TEMP 98.8; O2SAT 99
--- NOTE | 2017-08-07 18:41 | PD ---
HPI Chief Complaint: Sickle Cell Time Seen by Provider: 18:23 Travel History International Travel<30 days: No Contact w/Intl Traveler<30days: No Traveled to known affect area: No History of Present Illness HPI 46-year-old male complains of extremity pain and body pain. Patient has history of sickle cell disease with frequent sickle cell pain crisis. Patient was seen in emergency room 2 days ago and given IV fluid and pain medication. CBC, BMP and reticulocyte count was done. Patient was at baseline. Patient states that he went over to [facility] subsequently and received medication to also. Patient states that he had persistent pain and is here today. The patient denies any headache. Patient denies any neck pain. Patient denies any coughing congestion fever chills. Patient denies abdominal pain. Patient denies any nausea vomiting diarrhea. PFSH Past Medical History Hx Anticoagulant Therapy: No Asthma: Yes Blood Disorders: Yes (SICKLE CELL) Cardiovascular Problems: No Chemotherapy: No Cerebrovascular Accident: No Diabetes: No Diminished Hearing: No Gastrointestinal Disorders: No Genitourinary: No Musculoskeletal: No Neurologic: No Reproductive: No Respiratory: No Immunizations Current: Yes Sickle Cell Disease: Yes Tetanus Vaccination: < 5 Years Influenza Vaccination: Yes Past Surgical History Other Surgery: Yes (R+ Knee) Social History Alcohol Use: No Tobacco Use: Yes Substance Use: No Allergies-Medications (Allergen,Severity, Reaction): Coded Allergies: No Known Allergies (Verified , 08/07/17) Reported Meds & Prescriptions Reported Meds & Active Scripts Active No Active Prescriptions or Reported Medications Review of Systems General / Constitutional: No: Fever Eyes: No: Visual changes HENT: No: Headaches Cardiovascular: No: Chest Pain or Discomfort Respiratory: No: Shortness of Breath Gastrointestinal: No: Abdominal Pain Genitourinary: No: Dysuria Musculoskeletal: Positive: Pain Skin: No Rash Neurologic: No: Weakness Psychiatric: No: Depression Endocrine: No: Polydipsia Hematologic/Lymphatic: No: Easy Bruising Physical Exam Narrative GENERAL: Well-nourished, well-developed patient. SKIN: Focused skin assessment warm/dry. HEAD: Normocephalic. EYES: No scleral icterus. No injection or drainage. NECK: Supple, trachea midline. No JVD or lymphadenopathy. CARDIOVASCULAR: Regular rate and rhythm without murmurs, gallops, or rubs. RESPIRATORY: Breath sounds equal bilaterally. No accessory muscle use. GASTROINTESTINAL: Abdomen soft, non-tender, nondistended. MUSCULOSKELETAL: Patient has diffuse arthralgia of the joint. No evidence of soft tissue swelling or joint swelling. Full range of motion all joints. BACK: Nontender without obvious deformity. No CVA tenderness. Neurologic exam normal. Data Data Last Documented VS Vital Signs Date Time Temp Pulse Resp B/P (MAP) Pulse Ox O2 Delivery O2 Flow Rate FiO2 08/07/17 18:16 Room Air 08/07/17 17:08 98.8 90 20 127/69 (88) 99 Orders Orders Iv Access Insert/Monitor (08/07/17 18:34) Ns (Bolus) Inj (08/07/17 18:45) Hydromorphone Pf Inj (Dilaudid Pf Inj) (08/07/17 18:45) Ketorolac Inj (Toradol Inj) (08/07/17 18:45) Diphenhydramine Inj (Benadryl Inj) (08/07/17 18:45) MDM Medical Decision Making Medical Screen Exam Complete: Yes Emergency Medical Condition: Yes Differential Diagnosis Differential diagnosis including acute exacerbation of chronic pain, sickle cell pain crisis. Narrative Course 36-year-old male with pain of the body and joints. History of sickle cell disease with frequent sickle cell pain crisis. Patient had blood test done 2 days ago and also at [facility]. No need to repeat blood test today. Normal saline solution 1 L bolus. Dilaudid 1 mg IV. Zofran for me gram IV. Benadryl 50 mg IV. Toradol 30 mg IV. Diagnosis Primary Impression: Sickle cell pain crisis Patient Instructions: General Instructions Additional Instructions: Advised patient to follow-up with local physician. Med/Other Pt SpecificInfo: No Change to Meds Scripts No Active Prescriptions or Reported Meds Disposition: 01 DISCHARGE HOME Condition: Stable Mart Padron MD Aug 07, 2017 18:41
[2017-08-07] MEDS ORDERED: KETOROLAC TROMETHAMINE 30 MG/ML (IVP) VIAL IV PUSH ONE (18:45)
[2017-08-07] MEDS ORDERED: SODIUM CHLOR 0.9% 1000 ML INJ 1,000 ML IV ONE (18:45)
[2017-08-07] MEDS ORDERED: HYDROmorphone HCL PF 1 MG/ML VIAL IV PUSH ONE (18:45)
[2017-08-07] MEDS ORDERED: diphenhydrAMINE HCL 50 MG/ML VIAL IV PUSH ONE (18:45)
== END 2017-08-07 21:47 | disposition home or self-care (01) ==
LOC: NEPD 17:06
DX: D57.00 Hb-SS disease with crisis, unspecified (principal); Z72.0 Tobacco use
CPT/HCPCS: 96374; 96375; 99284; J1170; J1200; J1885; J7030

== ENCOUNTER 2017-08-13 06:16 | Emergency (ER) | payer MEDICAID ==
[~2017-08-13] VITALS: Ht 167.6 cm; Wt 63.5 kg
[2017-08-13 06:17] VITALS: BP 134/79; PULSE 118; RESP 16; TEMP 98.6; O2SAT 95
[2017-08-13] MEDS ORDERED: SODIUM CHLOR 0.9% 1000 ML INJ 1,000 ML IV ONE (07:46)
[2017-08-13] MEDS ORDERED: ACETAMINOPHEN/HYDROcodone 325 MG/5 MG TAB PO ONE (08:00)
[2017-08-13] MEDS ORDERED: SODIUM CHLORIDE 0.9% FLUSH 10 ML FLUSH IVF PRN (08:00)
[2017-08-13] MEDS ORDERED: KETOROLAC TROMETHAMINE 30 MG/ML (IVP) VIAL IV PUSH ONE (08:00)
[2017-08-13] MEDS ORDERED: diphenhydrAMINE HCL 50 MG/ML VIAL IV ONE (08:00)
[2017-08-13] MEDS ORDERED: ONDANSETRON HCL 4 MG/2 ML VIAL IVP ONE (08:00)
[2017-08-13] MEDS ORDERED: HYDROmorphone HCL PF 1 MG/ML VIAL IVS ONE (08:00)
[2017-08-13 08:03] VITALS: RESP 18; O2SAT 99
[2017-08-13 08:27] LABS: AUTOMATED NEUTROPHIL # 9.1 TH/MM3 (1.8-7.7); BASOPHIL # 0.1 TH/MM3 (0-0.2); BASOPHIL % 0.7 % (0.0-2.0); EOSINOPHIL % 0.1 % (0.0-4.0); HEMATOCRIT 34.9 % (39.0-51.0); HEMO FLAGS DIFF FINAL; LYMPH % 19.8 % (9.0-44.0); LYMPHOCYTE # 2.5 TH/MM3 (1.0-4.8); MEAN CELL VOLUME 84.6 FL (80.0-100.0); MEAN CORPUSCULAR HEMOGLOBIN 29.5 PG (27.0-34.0); MEAN CORPUSCULAR HGB CONC 34.9 % (32.0-36.0); MONO % 8.3 % (0.0-8.0); NEUT % 71.1 % (16.0-70.0); PLATELET COUNT 300 TH/MM3 (150-450); RED BLOOD COUNT 4.12 MIL/MM3 (4.50-5.90); RED CELL DISTRIBUTION WIDTH 16.4 % (11.6-17.2); RETIC % 3.9 % (0.4-3.0); REVIEW FLAG FINAL; WHITE BLOOD COUNT 12.8 TH/MM3 (4.0-11.0)
[2017-08-13 08:43] LABS: ALT (GPT) 25 U/L (12-78); ANION GAP 6 MEQ/L (5-15); AST (GOT) 21 U/L (15-37); BICARBONATE 25.4 MEQ/L (21.0-32.0); BLOOD UREA NITROGEN 12 MG/DL (7-18); CHLORIDE 106 MEQ/L (98-107); GLOMERULAR FILTRATION RATE 99 ML/MIN (>89); POTASSIUM 3.8 MEQ/L (3.5-5.1); SODIUM (NA) 137 MEQ/L (136-145)
[2017-08-13 08:45] LABS: ALKALINE PHOSPHATASE 106 U/L (45-117); TOTAL BILIRUBIN ADULT 1.6 MG/DL (0.2-1.0)
[2017-08-13] MEDS ORDERED: diphenhydrAMINE HCL 50 MG/ML VIAL IV PUSH ONE (08:45)
[2017-08-13] MEDS ORDERED: ONDANSETRON HCL 4 MG/2 ML VIAL IV PUSH ONE (08:45)
[2017-08-13] MEDS ORDERED: HYDROmorphone HCL PF 1 MG/ML VIAL IV PUSH ONE (08:45)
[2017-08-13] MEDS ORDERED: BENA25CA4 PO (09:27)
[2017-08-13] MEDS ORDERED: HYDR-3533 PO (09:27)
--- NOTE | 2017-08-13 09:27 | PD ---
HPI Chief Complaint: Sickle Cell Time Seen by Provider: 07:50 Travel History International Travel<30 days: No Contact w/Intl Traveler<30days: No Traveled to known affect area: No History of Present Illness HPI 26-year-old male patient with history of sickle cell, presents to the ER today with several days history of pain all over his body, thinks he may have a crisis. He denies any chest pains, shortness of breath, fevers, or any other symptoms. 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 Modifying Factors: None Associated Signs & Symptoms: Pain all over, sickle cell crisis Risk Factors: History of sickle cell PFSH Past Medical History Hx Anticoagulant Therapy: No Asthma: Yes Blood Disorders: Yes (SICKLE CELL) Cardiovascular Problems: No Chemotherapy: No Cerebrovascular Accident: No Diabetes: No Diminished Hearing: No Gastrointestinal Disorders: No Genitourinary: No Musculoskeletal: No Neurologic: No Reproductive: No Respiratory: No Immunizations Current: Yes Sickle Cell Disease: Yes Past Surgical History Other Surgery: Yes (R+ Knee) Social History Alcohol Use: No Tobacco Use: Yes (2-3 PER DAY) Substance Use: No Allergies-Medications (Allergen,Severity, Reaction): Coded Allergies: No Known Allergies (Verified , 08/13/17) Reported Meds & Prescriptions Reported Meds & Active Scripts Active No Active Prescriptions or Reported Medications Review of Systems Except as stated in HPI: all other systems reviewed are Neg Physical Exam Narrative GENERAL: Well-developed young -[place] male patient currently in mild distress. Awake and oriented 3. SKIN: Focused skin assessment warm/dry. HEAD: Atraumatic. Normocephalic. EYES: Pupils equal and round. No scleral icterus. No injection or drainage. ENT: No nasal bleeding or discharge. Mucous membranes pink and moist. NECK: Trachea midline. No JVD. CARDIOVASCULAR: Regular rate and rhythm. No murmur appreciated. RESPIRATORY: No accessory muscle use. Clear to auscultation. Breath sounds equal bilaterally. GASTROINTESTINAL: Abdomen soft, non-tender, nondistended. Hepatic and splenic margins not palpable. MUSCULOSKELETAL: No obvious deformities. No clubbing. No cyanosis. No edema. NEUROLOGICAL: Awake and alert. No obvious cranial nerve deficits. Motor grossly within normal limits. Normal speech. PSYCHIATRIC: Appropriate mood and affect; insight and judgment normal. Data Data Last Documented VS Vital Signs Date Time Temp Pulse Resp B/P (MAP) Pulse Ox O2 Delivery O2 Flow Rate FiO2 08/13/17 08:03 18 99 Room Air 08/13/17 07:14 100 08/13/17 06:17 98.6 Orders Orders C-Reactive Protein (Crp) (08/13/17 07:46) Complete Blood Count With Diff (08/13/17 07:46) Comprehensive Metabolic Panel (08/13/17 07:46) Retic Count (08/13/17 07:46) Ecg Monitoring (08/13/17 07:46) Iv Access Insert/Monitor (08/13/17 07:46) Oximetry (08/13/17 07:46) Ondansetron Inj (Zofran Inj) (08/13/17 08:00) Sodium Chloride 0.9% Flush (Ns Flush) (08/13/17 08:00) Sodium Chlor 0.9% 1000 Ml Inj (Ns 1000 M (08/13/17 07:46) Hydromorphone Pf Inj (Dilaudid Pf Inj) (08/13/17 08:00) Diphenhydramine Inj (Benadryl Inj) (08/13/17 08:00) Ketorolac Inj (Toradol Inj) (08/13/17 08:00) Creatine Kinase (Cpk) (08/13/17 07:50) Acetamin-Hydrocod 325-5 Mg (Calvin 5-325 (08/13/17 08:00) Hydromorphone Pf Inj (Dilaudid Pf Inj) (08/13/17 08:45) Ondansetron Inj (Zofran Inj) (08/13/17 08:45) Diphenhydramine Inj (Benadryl Inj) (08/13/17 08:45) Labs Laboratory Tests Test 08/13/17 08:00 White Blood Count 12.8 TH/MM3 Red Blood Count 4.12 MIL/MM3 Hemoglobin 12.2 GM/DL Hematocrit 34.9 % Mean Corpuscular Volume 84.6 FL Mean Corpuscular Hemoglobin 29.5 PG Mean Corpuscular Hemoglobin Concent 34.9 % Red Cell Distribution Width 16.4 % Platelet Count 300 TH/MM3 Mean Platelet Volume 8.2 FL Neutrophils (%) (Auto) 71.1 % Lymphocytes (%) (Auto) 19.8 % Monocytes (%) (Auto) 8.3 % Eosinophils (%) (Auto) 0.1 % Basophils (%) (Auto) 0.7 % Neutrophils # (Auto) 9.1 TH/MM3 Lymphocytes # (Auto) 2.5 TH/MM3 Monocytes # (Auto) 1.1 TH/MM3 Eosinophils # (Auto) 0.0 TH/MM3 Basophils # (Auto) 0.1 TH/MM3 CBC Comment DIFF FINAL Differential Comment Reticulocyte Count 3.9 % Absolute Reticulocyte Count 161.4 MIL/L Blood Urea Nitrogen 12 MG/DL Creatinine 1.08 MG/DL Random Glucose 99 MG/DL Total Protein 8.8 GM/DL Albumin 4.4 GM/DL Calcium Level 8.9 MG/DL Alkaline Phosphatase 106 U/L Aspartate Amino Transf (AST/SGOT) 21 U/L Alanine Aminotransferase (ALT/SGPT) 25 U/L Total Bilirubin 1.6 MG/DL Sodium Level 137 MEQ/L Potassium Level 3.8 MEQ/L Chloride Level 106 MEQ/L Carbon Dioxide Level 25.4 MEQ/L Anion Gap 6 MEQ/L Estimat Glomerular Filtration Rate 99 ML/MIN Total Creatine Kinase 138 U/L C-Reactive Protein 1.20 MG/DL MDM Medical Decision Making Medical Screen Exam Complete: Yes Emergency Medical Condition: Yes Medical Record Reviewed: Yes Interpretation(s) Laboratory Tests Test 08/13/17 08:00 White Blood Count 12.8 TH/MM3 (4.0-11.0) Red Blood Count 4.12 MIL/MM3 (4.50-5.90) Hemoglobin 12.2 GM/DL (13.0-17.0) Hematocrit 34.9 % (39.0-51.0) Neutrophils (%) (Auto) 71.1 % (16.0-70.0) Monocytes (%) (Auto) 8.3 % (0.0-8.0) Neutrophils # (Auto) 9.1 TH/MM3 (1.8-7.7) Monocytes # (Auto) 1.1 TH/MM3 (0-0.9) Reticulocyte Count 3.9 % (0.4-3.0) Absolute Reticulocyte Count 161.4 MIL/L (20.0-150.0) Total Protein 8.8 GM/DL (6.4-8.2) Total Bilirubin 1.6 MG/DL (0.2-1.0) C-Reactive Protein 1.20 MG/DL (0.00-0.30) Differential Diagnosis Sickle cell crisis versus rhabdomyolysis versus pain med seeking Narrative Course It appears that he has been here several times for sickle cell crises. He has reticulocyte count elevations. At this point, patient had been given IV fluids , Toradol and by mouth pain medication. However, he was not getting significant relief with that and further Dilaudid and Zofran as well as Benadryl was given. On reevaluation at 9:20 AM, he is feeling improved and my plan would be to release him with follow-up to primary care physician and sheet turner. Return for any worsening in symptoms as necessary. The plan has discussed with him and he states understanding. Diagnosis Primary Impression: Sickle cell pain crisis Med/Other Pt SpecificInfo: Prescription(s) given Scripts Diphenhydramine HCl (Benadryl Allergy) 25 Mg Cap 25 MG PO QID Y for ITCHING, #20 Prov: Ann Morton MD 08/13/17 Hydrocodone-Acetaminophen (Lortab) 5-325 Mg Tab 1-2 TAB PO Q6H Y for PAIN, #20 TAB 0 Refills Prov: Ann Morton MD 08/13/17 Disposition: 01 DISCHARGE HOME Condition: Stable Ann Morton MD Aug 13, 2017 09:27
== END 2017-08-13 09:48 | disposition home or self-care (01) ==
LOC: NEPC 06:16
DX: D57.00 Hb-SS disease with crisis, unspecified (principal); J45.909 Unspecified asthma, uncomplicated; F17.210 Nicotine dependence, cigarettes, uncomplicated
CPT/HCPCS: 80053; 82550; 85025; 85044; 86140; 96361; 96374; 96375; 99284; J1170; J1200; J1885; J2405; J7030

== ENCOUNTER 2017-08-25 04:11 | Emergency (ER) | payer MEDICAID ==
[~2017-08-25] VITALS: Ht 167.6 cm; Wt 62.0 kg
[2017-08-25 04:11] VITALS: BP 131/73; PULSE 99; RESP 16; TEMP 98.1; O2SAT 97
[~2017-08-25 04:11] MED LIST changes: +BENA25CA4 PO
[2017-08-25] MEDS ORDERED: SODIUM CHLOR 0.9% 1000 ML INJ 1,000 ML IV ONE ×2 (04:31→05:30)
--- NOTE | 2017-08-25 04:39 | PD ---
HPI Chief Complaint: Sickle Cell Time Seen by Provider: 04:27 Travel History International Travel<30 days: No Contact w/Intl Traveler<30days: No Traveled to known affect area: No History of Present Illness HPI The patient is a 27-year-old [place] male who presents emergency department for arthralgias and myalgias. The patient has a history of sickle cell SC hemoglobinopathy, and has not been followed by a circuit board repair technician recently. The patient notes a 5-6 hour history of pain located in the joints of the knees, posterior calves, as well as the elbows, and humeral areas. He denies any chest pain, shortness breath, cough, fever, chills, or sweats. The patient does not take any burned evaluated medications including hydroxyurea or folic acid. The patient states she has an appointment next month with a circuit board repair technician who is located in [place], [place]. The patient's symptoms are moderate, possibly exacerbated by history of sickle cell disease, and there are no current alleviating factors. PFSH Past Medical History Hx Anticoagulant Therapy: No Asthma: Yes Blood Disorders: Yes (SICKLE CELL) Cardiovascular Problems: No Chemotherapy: No Cerebrovascular Accident: No Diabetes: No Diminished Hearing: No Gastrointestinal Disorders: No Genitourinary: No Musculoskeletal: No Neurologic: No Reproductive: No Respiratory: No Immunizations Current: Yes Sickle Cell Disease: Yes Tetanus Vaccination: < 5 Years Influenza Vaccination: Yes Past Surgical History Other Surgery: Yes (R+ Knee) Social History Alcohol Use: No Tobacco Use: Yes (2-3 PER DAY) Substance Use: No Allergies-Medications (Allergen,Severity, Reaction): Coded Allergies: No Known Allergies (Verified , 08/13/17) Reported Meds & Prescriptions Reported Meds & Active Scripts Active Lortab (Hydrocodone-Acetaminophen) 5-325 Mg Tab 1-2 Tab PO Q6H PRN Review of Systems Except as stated in HPI: all other systems reviewed are Neg General / Constitutional: No: Fever Cardiovascular: No: Chest Pain or Discomfort Respiratory: No: Cough, Shortness of Breath Gastrointestinal: No: Nausea, Vomiting, Abdominal Pain Musculoskeletal: Positive: Myalgias, Arthralgias Hematologic/Lymphatic: Positive: Other (history of sickle cell SC hemoglobinopathy) Physical Exam Narrative GENERAL: Awake, alert, nontoxic-appearing 27-year-old male who appears his stated age and is in no acute respiratory distress. SKIN: Focused skin assessment warm/dry. HEAD: Atraumatic. Normocephalic. EYES: Pupils equal and round. No obvious icterus. ENT: No nasal bleeding or discharge. Mucous membranes pink and moist. NECK: Trachea midline. No JVD. CARDIOVASCULAR: Regular rate and rhythm. No murmur appreciated. Heart rate in the 90s. RESPIRATORY: No accessory muscle use. Clear to auscultation. Breath sounds equal bilaterally. GASTROINTESTINAL: Abdomen soft, non-tender, nondistended. No rebound tenderness. MUSCULOSKELETAL: No obvious deformities. No clubbing. No cyanosis. No edema. NEUROLOGICAL: Awake and alert. No obvious cranial nerve deficits. Motor grossly within normal limits. Normal speech. PSYCHIATRIC: Appropriate mood and affect; insight and judgment normal. Data Data Last Documented VS Vital Signs Date Time Temp Pulse Resp B/P (MAP) Pulse Ox O2 Delivery O2 Flow Rate FiO2 08/25/17 04:44 80 16 109/57 (74) 100 Room Air 08/25/17 04:11 98.1 Orders Orders Complete Blood Count With Diff (08/25/17 04:31) Retic Count (08/25/17 04:31) Oximetry (08/25/17 04:31) Ondansetron Inj (Zofran Inj) (08/25/17 04:45) Sodium Chloride 0.9% Flush (Ns Flush) (08/25/17 04:45) Sodium Chlor 0.9% 1000 Ml Inj (Ns 1000 M (08/25/17 04:31) Hydromorphone Pf Inj (Dilaudid Pf Inj) (08/25/17 04:45) Diphenhydramine Inj (Benadryl Inj) (08/25/17 04:45) Ecg Monitoring (08/25/17 04:31) Iv Access Insert/Monitor (08/25/17 04:31) Labs Laboratory Tests Test 08/25/17 04:48 White Blood Count 8.4 TH/MM3 Red Blood Count 4.03 MIL/MM3 Hemoglobin 11.8 GM/DL Hematocrit 34.1 % Mean Corpuscular Volume 84.7 FL Mean Corpuscular Hemoglobin 29.4 PG Mean Corpuscular Hemoglobin Concent 34.7 % Red Cell Distribution Width 17.3 % Platelet Count 346 TH/MM3 Mean Platelet Volume 7.2 FL Neutrophils (%) (Auto) 57.0 % Lymphocytes (%) (Auto) 31.5 % Monocytes (%) (Auto) 9.4 % Eosinophils (%) (Auto) 1.2 % Basophils (%) (Auto) 0.9 % Neutrophils # (Auto) 4.8 TH/MM3 Lymphocytes # (Auto) 2.7 TH/MM3 Monocytes # (Auto) 0.8 TH/MM3 Eosinophils # (Auto) 0.1 TH/MM3 Basophils # (Auto) 0.1 TH/MM3 CBC Comment DIFF FINAL Differential Comment Reticulocyte Count 4.6 % Absolute Reticulocyte Count 183.5 MIL/L MDM Medical Decision Making Medical Screen Exam Complete: Yes Emergency Medical Condition: Yes Medical Record Reviewed: Yes Interpretation(s) Laboratory Tests Test 08/25/17 04:48 White Blood Count 8.4 TH/MM3 Red Blood Count 4.03 MIL/MM3 Hemoglobin 11.8 GM/DL Hematocrit 34.1 % Mean Corpuscular Volume 84.7 FL Mean Corpuscular Hemoglobin 29.4 PG Mean Corpuscular Hemoglobin Concent 34.7 % Red Cell Distribution Width 17.3 % Platelet Count 346 TH/MM3 Mean Platelet Volume 7.2 FL Neutrophils (%) (Auto) 57.0 % Lymphocytes (%) (Auto) 31.5 % Monocytes (%) (Auto) 9.4 % Eosinophils (%) (Auto) 1.2 % Basophils (%) (Auto) 0.9 % Neutrophils # (Auto) 4.8 TH/MM3 Lymphocytes # (Auto) 2.7 TH/MM3 Monocytes # (Auto) 0.8 TH/MM3 Eosinophils # (Auto) 0.1 TH/MM3 Basophils # (Auto) 0.1 TH/MM3 CBC Comment DIFF FINAL Differential Comment Reticulocyte Count 4.6 % Absolute Reticulocyte Count 183.5 MIL/L Differential Diagnosis Differential diagnosis includes vaso-occlusive crisis, symptomatic anemia, aplastic crisis, drug-seeking behavior, malingering. Narrative Course IV was established, labs are drawn and sent, and the patient was placed on cardiac telemetry monitoring and continuous pulse oximetry monitoring. The patient was administered Dilaudid, Zofran, Benadryl, and IV fluids. CBC and retic count were sent to lab. Hemoglobin is 11.8, retake count is appropriate for 0.6. The patient was reevaluated at 5:27 AM, the patient still had moderate pain. Therefore, the patient was administered another dose of pain medications. The patient we discharged home on [facility] and is advised to follow- up with circuit board repair technician. Return if symptoms worsen or progress. Diagnosis Primary Impression: Sickle-cell disease with pain Patient Instructions: General Instructions Additional Instructions: Medications as directed. Drink plenty fluids to stay hydrated. Follow-up with her circuit board repair technician. Return if symptoms worsen or progress. Med/Other Pt SpecificInfo: Prescription(s) given Scripts Hydrocodone-Acetaminophen ([place]) 10-325 Mg Tab 1 TAB PO Q6H Y for PAIN, #12 TAB 0 Refills Prov: Malik Fowler MD 08/25/17 Disposition: DISCHARGE HOME Condition: Stable Malik Fowler MD Aug 25, 2017 04:39
[2017-08-25 04:44] VITALS: BP 109/57; PULSE 80; RESP 16; O2SAT 100
[2017-08-25] MEDS ORDERED: SODIUM CHLORIDE 0.9% FLUSH 10 ML FLUSH IVF PRN (04:45)
[2017-08-25] MEDS ORDERED: HYDROmorphone HCL PF 1 MG/ML VIAL IVS ONE (04:45)
[2017-08-25] MEDS ORDERED: diphenhydrAMINE HCL 50 MG/ML VIAL IV PUSH ONE (04:45)
[2017-08-25] MEDS ORDERED: ONDANSETRON HCL 4 MG/2 ML VIAL IVP ONE (04:45)
[2017-08-25 05:01] LABS: AUTOMATED NEUTROPHIL # 4.8 TH/MM3 (1.8-7.7); BASOPHIL # 0.1 TH/MM3 (0-0.2); BASOPHIL % 0.9 % (0.0-2.0); EOSINOPHIL # 0.1 TH/MM3 (0-0.4); EOSINOPHIL % 1.2 % (0.0-4.0); HEMATOCRIT 34.1 % (39.0-51.0); HEMO FLAGS DIFF FINAL; LYMPH % 31.5 % (9.0-44.0); LYMPHOCYTE # 2.7 TH/MM3 (1.0-4.8); MEAN CELL VOLUME 84.7 FL (80.0-100.0); MEAN CORPUSCULAR HEMOGLOBIN 29.4 PG (27.0-34.0); MEAN CORPUSCULAR HGB CONC 34.7 % (32.0-36.0); MONO % 9.4 % (0.0-8.0); PLATELET COUNT 346 TH/MM3 (150-450); RED BLOOD COUNT 4.03 MIL/MM3 (4.50-5.90); RED CELL DISTRIBUTION WIDTH 17.3 % (11.6-17.2); RETIC % 4.6 % (0.4-3.0); REVIEW FLAG FINAL; WHITE BLOOD COUNT 8.4 TH/MM3 (4.0-11.0)
[2017-08-25] MEDS ORDERED: HYDR-3366 PO (05:29)
[2017-08-25] MEDS ORDERED: HYDROmorphone HCL PF 1 MG/ML VIAL IV PUSH ONE (05:30)
[2017-08-25 06:17] VITALS: BP 118/70
== END 2017-08-25 06:24 | disposition home or self-care (01) ==
LOC: NEPE 04:11
DX: D57.00 Hb-SS disease with crisis, unspecified (principal); M25.50 Pain in unspecified joint; M79.1 Myalgia; Z72.0 Tobacco use; Z87.09 Personal history of other diseases of the respiratory system; Z86.2 Personal history of diseases of the blood and blood-forming organs and certain disorders involving the immune mechanism
CPT/HCPCS: 85025; 85044; 96361; 96374; 96375; 96376; 99284; J1170; J1200; J2405; J7030

== ENCOUNTER 2017-09-11 11:19 | Emergency (ER) | payer MEDICAID ==
[~2017-09-11] VITALS: Ht 170.2 cm; Wt 68.0 kg
[~2017-09-11 11:19] MED LIST changes: -BENA25CA4 PO; +HYDR-3366 PO
[2017-09-11 11:32] VITALS: BP 154/110; PULSE 72; RESP 22; TEMP 98.1; O2SAT 100
[2017-09-11] MEDS ORDERED: SODIUM CHLOR 0.9% 1000 ML INJ 1,000 ML IV ONE ×2 (11:51→12:00)
--- NOTE | 2017-09-11 11:52 | PD ---
HPI Chief Complaint: Pain: Acute or Chronic Time Seen by Provider: 11:34 Travel History International Travel<30 days: No Contact w/Intl Traveler<30days: No Traveled to known affect area: No History of Present Illness HPI 27-year-old male, with history of sickle cell, presents via EMS with complaint of pain all over that started this morning. Denies fever, vomiting. Patient repetitively says his pain is all over and will not specify exactly where his pain is. He is crying and asking for pain medications. No known aggravating factors. Has not taken any medication or drainage from his to alleviate symptoms. No known relieving factors. His illicit drug use. Denies alcohol use. No other medical complaints. No known allergies. No other modifying factors or associated signs and symptoms. PFSH Past Medical History Hx Anticoagulant Therapy: No Asthma: Yes Blood Disorders: Yes (SICKLE CELL) Cardiovascular Problems: No Chemotherapy: No Cerebrovascular Accident: No Diabetes: No Diminished Hearing: No Gastrointestinal Disorders: No Genitourinary: No Musculoskeletal: No Neurologic: No Reproductive: No Respiratory: No Immunizations Current: Yes Sickle Cell Disease: Yes Tetanus Vaccination: < 5 Years Past Surgical History Other Surgery: Yes (R+ Knee) Social History Alcohol Use: No Tobacco Use: Yes (2-3 PER DAY) Substance Use: No Allergies-Medications (Allergen,Severity, Reaction): Coded Allergies: No Known Allergies (Verified , 09/11/17) Reported Meds & Prescriptions Reported Meds & Active Scripts Active Review of Systems Except as stated in HPI: all other systems reviewed are Neg Physical Exam Narrative GENERAL: Well-nourished, well-developed black male patient, in no acute distress ; afebrile, nontoxic-appearing; tearful and crying SKIN: Warm and dry. HEAD: Atraumatic. Normocephalic. EYES: Pupils equal and round. No scleral icterus. No injection or drainage. ENT: Mucosa pink and moist. Airway patent. NECK: Trachea midline. CARDIOVASCULAR: Regular rate and rhythm. No murmur appreciated. RESPIRATORY: No accessory muscle use. Clear to auscultation. Breath sounds equal bilaterally. GASTROINTESTINAL: Abdomen soft, non-tender, nondistended. Hepatic and splenic margins not palpable. Bowel sounds are active 4 quadrants. MUSCULOSKELETAL: No obvious deformities. No clubbing. No cyanosis. No edema. NEUROLOGICAL: Awake and alert. Oriented 3. No obvious cranial nerve deficits. Motor grossly within normal limits. Normal speech. PSYCHIATRIC: Appropriate mood and affect; insight and judgment normal. Data Data Last Documented VS Vital Signs Date Time Temp Pulse Resp B/P (MAP) Pulse Ox O2 Delivery O2 Flow Rate FiO2 09/11/17 13:07 67 20 136/80 (98) 100 09/11/17 11:32 98.1 Orders Orders Complete Blood Count With Diff (09/11/17 11:51) Comprehensive Metabolic Panel (09/11/17 11:51) Retic Count (09/11/17 11:51) Urinalysis - C+S If Indicated (09/11/17 11:51) Ecg Monitoring (09/11/17 11:51) Iv Access Insert/Monitor (09/11/17 11:51) Oximetry (09/11/17 11:51) Ondansetron Inj (Zofran Inj) (09/11/17 12:00) Sodium Chloride 0.9% Flush (Ns Flush) (09/11/17 12:00) Sodium Chlor 0.9% 1000 Ml Inj (Ns 1000 M (09/11/17 11:51) Hydromorphone Pf Inj (Dilaudid Pf Inj) (09/11/17 12:00) Sodium Chlor 0.9% 1000 Ml Inj (Ns 1000 M (09/11/17 12:00) Electrocardiogram (09/11/17 11:54) Chest, Single Ap (09/11/17 11:54) Hydromorphone Pf Inj (Dilaudid Pf Inj) (09/11/17 12:00) Hydromorphone Pf Inj (Dilaudid Pf Inj) (09/11/17 13:00) Hydromorphone Pf Inj (Dilaudid Pf Inj) (09/11/17 14:00) Sodium Chlor 0.9% 1000 Ml Inj (Ns 1000 M (09/11/17 13:57) Ed Discharge Order (09/11/17 13:58) Labs Laboratory Tests Test 09/11/17 12:00 White Blood Count 10.6 TH/MM3 Red Blood Count 4.21 MIL/MM3 Hemoglobin 12.6 GM/DL Hematocrit 36.1 % Mean Corpuscular Volume 85.7 FL Mean Corpuscular Hemoglobin 30.0 PG Mean Corpuscular Hemoglobin Concent 35.0 % Red Cell Distribution Width 17.0 % Platelet Count 219 TH/MM3 Mean Platelet Volume 8.3 FL Neutrophils (%) (Auto) 47.7 % Lymphocytes (%) (Auto) 42.6 % Monocytes (%) (Auto) 6.4 % Eosinophils (%) (Auto) 2.7 % Basophils (%) (Auto) 0.6 % Neutrophils # (Auto) 5.1 TH/MM3 Lymphocytes # (Auto) 4.5 TH/MM3 Monocytes # (Auto) 0.7 TH/MM3 Eosinophils # (Auto) 0.3 TH/MM3 Basophils # (Auto) 0.1 TH/MM3 CBC Comment AUTO DIFF Differential Total Cells Counted 100 Neutrophils % (Manual) 52 % Band Neutrophils % 3 % Lymphocytes % 37 % Monocytes % 6 % Basophils % 1 % Neutrophils # (Manual) 5.9 TH/MM3 Myelocytes 1 % Nucleated Red Blood Cells 2 /100 WBC Differential Comment FINAL DIFF MANUAL Platelet Estimate NORMAL Platelet Morphology Comment NORMAL Target Cells 2+ Reticulocyte Count 5.0 % Absolute Reticulocyte Count 209.9 MIL/L Blood Urea Nitrogen 12 MG/DL Creatinine 1.00 MG/DL Random Glucose 88 MG/DL Total Protein 7.7 GM/DL Albumin 3.8 GM/DL Calcium Level 8.6 MG/DL Alkaline Phosphatase 140 U/L Aspartate Amino Transf (AST/SGOT) 28 U/L Alanine Aminotransferase (ALT/SGPT) 32 U/L Total Bilirubin 1.2 MG/DL Sodium Level 139 MEQ/L Potassium Level 4.2 MEQ/L Chloride Level 108 MEQ/L Carbon Dioxide Level 23.3 MEQ/L Anion Gap 8 MEQ/L Estimat Glomerular Filtration Rate 107 ML/MIN [facility] Medical Decision Making Medical Screen Exam Complete: Yes Emergency Medical Condition: Yes Medical Record Reviewed: Yes Differential Diagnosis Sickle cell disease with pain, sickle cell pain crisis, reticulocytosis, anemia Narrative Course 27-year-old male with history of sickle cell anemia with sickle cell pain crisis. IV set obtained. Labs ordered. Dilaudid and normal saline bolus ordered. 1255: EKG was normal sinus rhythm; without ST elevation or depression; reviewed by Dr. Kimball. Chest x-ray with no acute findings. 1327: Retic count 5.0. Absolutely retic count 209.9. 1350: CMP unremarkable. On reevaluation the patient is lying in bed in no acute distress and he appears comfortable. He does state that his pain is still "unbearable." A third dose of Dilaudid will be administered and a second normal saline bolus. Instructed patient to follow up with hematology. Instructed patient to follow up with primary care provider. Patient verbalizes understanding and agreement with treatment plan. Patient is medically cleared and stable for discharge. Discussed reasons to return to the emergency department. Patient agrees with treatment plan. The patients vital signs are stable and the patient is stable for outpatient follow-up and treatment. Patient discharged home, stable and in no acute distress. Diagnosis Primary Impression: Sickle cell pain crisis Referrals: Primary Care Physician Patient Instructions: General Instructions, Sickle Cell Crisis (ED), Sickle Cell Disease (DC) Departure Forms: Tests/Procedures, Work Release Enter return to work date: Sep 12, 2017 Additional Instructions: Take folic acid supplements daily Increase fluid intake to prevent dehydration; drink plenty of water Avoid exposure to extreme heat or cold thickening with increased her risk of sickle cell crisis Follow-up with primary care provider Follow-up with director [place] Return to the emergency department immediately with worsening of symptoms Med/Other Pt SpecificInfo: No Meds Exist/No RX given Scripts No Active Prescriptions or Reported Meds Disposition: 01 DISCHARGE HOME Condition: Stable Raisa Liu Sep 11, 2017 11:52
[2017-09-11] MEDS ORDERED: HYDROmorphone HCL PF 1 MG/ML VIAL IVS ONE (12:00)
[2017-09-11] MEDS ORDERED: ONDANSETRON HCL 4 MG/2 ML VIAL IVP ONE (12:00)
[2017-09-11] MEDS ORDERED: HYDROmorphone HCL PF 2 MG/ML VIAL IV PUSH ONE ×3 (12:00→14:00)
[2017-09-11] MEDS ORDERED: SODIUM CHLORIDE 0.9% FLUSH 10 ML FLUSH IVF PRN (12:00)
--- NOTE | 2017-09-11 12:13 | RADRPT ---
EXAM DATE/TIME: 09/11/2017 12:10 [facility] COMPARISON: CHEST SINGLE AP, January 10, 2017, 19:38. INDICATIONS : Chest pain. MEDICAL HISTORY : Sickle Cell disease. Smoker. Asthma. SURGICAL HISTORY : None. ENCOUNTER: Initial ACUITY: 1 day PAIN SCORE: 10/10 LOCATION: Right chest FINDINGS: A single view of the chest demonstrates the lungs to be symmetrically aerated without evidence of mas s, infiltrate or effusion. Top normal heart size. Osseous structures are intact. CONCLUSION: Normal examination. Refugio Cosme Jr., MD on September 11, 2017 at 12:10 Board Certified Radiologist. This report was verified electronically.
[2017-09-11 12:30] VITALS: O2SAT 100
[2017-09-11 12:33] LABS: AUTOMATED NEUTROPHIL # 5.1 TH/MM3 (1.8-7.7); BASOPHIL # 0.1 TH/MM3 (0-0.2); BASOPHIL % 0.6 % (0.0-2.0); EOSINOPHIL # 0.3 TH/MM3 (0-0.4); EOSINOPHIL % 2.7 % (0.0-4.0); HEMATOCRIT 36.1 % (39.0-51.0); HEMOGLOBIN 12.6 GM/DL (13.0-17.0); LYMPH % 42.6 % (9.0-44.0); LYMPHOCYTE # 4.5 TH/MM3 (1.0-4.8); MEAN CELL VOLUME 85.7 FL (80.0-100.0); MEAN PLATELET VOLUME 8.3 FL (7.0-11.0); MONO % 6.4 % (0.0-8.0); MONOCYTE # 0.7 TH/MM3 (0-0.9); NEUT % 47.7 % (16.0-70.0); PLATELET COUNT 219 TH/MM3 (150-450); RED BLOOD COUNT 4.21 MIL/MM3 (4.50-5.90); RETIC # 209.9 MIL/L (20.0-150.0); WHITE BLOOD COUNT 10.6 TH/MM3 (4.0-11.0)
[2017-09-11 13:07] VITALS: BP 136/80; PULSE 67; RESP 20; O2SAT 100
[2017-09-11 13:09] LABS: BANDS 3 % (0-6); BASOPHILS 1 % (0-2); CORRECTED NUCLEATED RBC 2 /100 WBC (0-0); LYMPHOCYTES 37 % (9-44); MONOCYTES 6 % (0-8); MYELOCYTES 1 % (0-0); NEUTROPHIL # MANUAL DIFF 5.9 TH/MM3 (1.8-7.7); NUCLEATED RED BLOOD CELL 2 (0-0); POLYS (SEG NEUTROPHILS) 52 % (16-70)
[2017-09-11 13:10] LABS: TARGET CELLS 2+ (NORMAL)
[2017-09-11 13:18] LABS: ALKALINE PHOSPHATASE 140 U/L (45-117); TOTAL BILIRUBIN ADULT 1.2 MG/DL (0.2-1.0); TOTAL PROTEIN 7.7 GM/DL (6.4-8.2)
[2017-09-11 13:29] LABS: ALBUMIN 3.8 GM/DL (3.4-5.0); ALT (GPT) 32 U/L (12-78); AST (GOT) 28 U/L (15-37); BICARBONATE 23.3 MEQ/L (21.0-32.0); BLOOD UREA NITROGEN 12 MG/DL (7-18); CALCIUM 8.6 MG/DL (8.5-10.1); CHLORIDE 108 MEQ/L (98-107); GLOMERULAR FILTRATION RATE 107 ML/MIN (>89); GLUCOSE,RANDOM 88 MG/DL (74-106); SODIUM (NA) 139 MEQ/L (136-145)
[2017-09-11] MEDS ORDERED: SODIUM CHLOR 0.9% 1000 ML INJ 1,000 ML IV SCH (13:57)
--- NOTE | 2017-09-12 15:20 | EKG ---
Date Performed: 09/11/2017 Time Performed: 12:42:10 PTAGE: 27 years EKG: Sinus rhythm NORMAL ECG Compared to prior tracing no significant change PREVIOUS TRACING : 01/10/2017 20.30.30 DOCTOR: Bruce Fitch Interpretating Date/Time 09/12/2017 15:19:42
[2017-09-14] MEDS ORDERED: HYDR-3533 PO (17:36)
== END 2017-09-11 15:17 | disposition home or self-care (01) ==
LOC: NEPD 11:19
DX: D57.00 Hb-SS disease with crisis, unspecified (principal); J45.909 Unspecified asthma, uncomplicated; F17.210 Nicotine dependence, cigarettes, uncomplicated; R07.9 Chest pain, unspecified
CPT/HCPCS: 71010; 80053; 85007; 85027; 85044; 93005; 96361; 96374; 96375; 96376; 99285; J1170; J2405; J7030

== ENCOUNTER 2017-09-14 11:46 | Emergency (ER) | payer MEDICAID ==
[~2017-09-14] VITALS: Ht 167.6 cm; Wt 66.0 kg
[2017-09-14 11:53] VITALS: BP 120/78; PULSE 82; RESP 16; TEMP 98.6; O2SAT 96
[2017-09-14] MEDS ORDERED: SODIUM CHLOR 0.9% 1000 ML INJ 1,000 ML IV ONE ×2 (12:30)
[2017-09-14] MEDS ORDERED: HYDROmorphone HCL PF 2 MG/ML VIAL IVS ONE ×2 (12:30)
[2017-09-14] MEDS ORDERED: ONDANSETRON HCL 4 MG/2 ML VIAL IV PUSH ONE ×2 (12:30)
[2017-09-14 12:52] LABS: AUTOMATED NEUTROPHIL # 9.5 TH/MM3 (1.8-7.7); BASOPHIL # 0.1 TH/MM3 (0-0.2); BASOPHIL % 0.6 % (0.0-2.0); EOSINOPHIL # 0.2 TH/MM3 (0-0.4); EOSINOPHIL % 1.2 % (0.0-4.0); HEMATOCRIT 38.7 % (39.0-51.0); HEMOGLOBIN 13.9 GM/DL (13.0-17.0); LYMPH % 15.6 % (9.0-44.0); MEAN CORPUSCULAR HEMOGLOBIN 30.6 PG (27.0-34.0); MEAN PLATELET VOLUME 8.1 FL (7.0-11.0); MONO % 9.8 % (0.0-8.0); MONOCYTE # 1.3 TH/MM3 (0-0.9); NEUT % 72.8 % (16.0-70.0); PLATELET COUNT 242 TH/MM3 (150-450); RED BLOOD COUNT 4.55 MIL/MM3 (4.50-5.90); RED CELL DISTRIBUTION WIDTH 17.1 % (11.6-17.2); WHITE BLOOD COUNT 13.1 TH/MM3 (4.0-11.0)
[2017-09-14 13:00] VITALS: BP 138/81; PULSE 84; RESP 16; O2SAT 98
--- NOTE | 2017-09-14 13:06 | RADRPT ---
EXAM DATE/TIME: 09/14/2017 12:58 [facility] COMPARISON: CHEST SINGLE AP, September 11, 2017, 12:10. INDICATIONS : Short of breath. MEDICAL HISTORY : Sickle Cell disease. SURGICAL HISTORY : None. ENCOUNTER: Initial ACUITY: 1 day PAIN SCORE: Non-responsive. LOCATION: Bilateral chest FINDINGS: A single view of the chest demonstrates the lungs to be symmetrically aerated without evidence of mas s, infiltrate or effusion. The cardiomediastinal contours are unremarkable. Osseous structures are intact. CONCLUSION: Normal examination. Refugio Cosme Jr., MD on September 14, 2017 at 13:03 Board Certified Radiologist. This report was verified electronically.
[2017-09-14 13:16] LABS: TROPONIN I LESS THAN 0.02 NG/ML (0.02-0.05)
[2017-09-14 13:24] LABS: BICARBONATE 26.7 MEQ/L (21.0-32.0); CALCIUM 9.7 MG/DL (8.5-10.1); CREATININE 0.84 MG/DL (0.60-1.30)
[2017-09-14 13:56] LABS: TARGET CELLS 1+ (NORMAL)
[2017-09-14 14:00] VITALS: BP 139/83; PULSE 76; RESP 16; O2SAT 98
--- NOTE | 2017-09-14 14:45 | PD ---
HPI Chief Complaint: Sickle Cell Time Seen by Provider: 12:07 Travel History International Travel<30 days: No Contact w/Intl Traveler<30days: No Traveled to known affect area: No History of Present Illness HPI This is a 27-year-old male with history of sickle cell disease, presents today with complaints of pain in his legs and chest. Patient denies any cough or shortness of breath. He reports the pain as severe. He states he was seen here 2-3 days ago and at that time did not have pain medicines prescribed on discharge. 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 He denies any fevers, chills. There is no dysuria, urgency, frequency. PFSH Past Medical History Hx Anticoagulant Therapy: No Asthma: Yes Blood Disorders: Yes (SICKLE CELL) Cardiovascular Problems: No Chemotherapy: No Cerebrovascular Accident: No Diabetes: No Diminished Hearing: No Gastrointestinal Disorders: No Genitourinary: No Musculoskeletal: No Neurologic: No Reproductive: No Respiratory: No Immunizations Current: Yes Sickle Cell Disease: Yes Tetanus Vaccination: < 5 Years Past Surgical History Other Surgery: Yes (R+ Knee) Social History Alcohol Use: No Tobacco Use: Yes (/2 ppd) Substance Use: No Allergies-Medications (Allergen,Severity, Reaction): Coded Allergies: No Known Allergies (Verified , 09/14/17) Reported Meds & Prescriptions Reported Meds & Active Scripts Active No Active Prescriptions or Reported Medications Review of Systems Except as stated in HPI: all other systems reviewed are Neg General / Constitutional: No: Fever, Chills HENT: No: Headaches, Lightheadedness Cardiovascular: Positive: Chest Pain or Discomfort, No: Palpitations, Irregular Rhythm (tightness) Respiratory: No: Cough, Shortness of Breath Gastrointestinal: No: Nausea, Vomiting, Diarrhea Genitourinary: No: Dysuria Musculoskeletal: Positive: Pain (bilateral leg pain), No: Weakness, Edema Neurologic: No: Weakness, Dizziness, Syncope, Headache Physical Exam Narrative GENERAL: Well-developed well-nourished male in no acute respiratory distress. SKIN: Focused skin assessment warm/dry. HEAD: Atraumatic. Normocephalic. EYES: Pupils equal and round. No scleral icterus. No injection or drainage. ENT: No nasal bleeding or discharge. Mucous membranes pink and moist. NECK: Trachea midline. Supple. CARDIOVASCULAR: Regular rate and rhythm. No murmur appreciated. RESPIRATORY: No accessory muscle use. Clear to auscultation. Breath sounds equal bilaterally. GASTROINTESTINAL: Abdomen soft, non-tender, nondistended. MUSCULOSKELETAL: No obvious deformities. No clubbing. No cyanosis. No edema. NEUROLOGICAL: Awake and alert. No obvious cranial nerve deficits. Motor grossly within normal limits. Normal speech. PSYCHIATRIC: Appropriate mood and affect; insight and judgment normal. Data Data Last Documented VS Vital Signs Date Time Temp Pulse Resp B/P (MAP) Pulse Ox O2 Delivery O2 Flow Rate FiO2 09/14/17 13:00 84 16 138/81 (100) 98 Room Air 09/14/17 11:53 98.6 Orders Orders Complete Blood Count With Diff (09/14/17 12:16) Basic Metabolic Panel (Bmp) (09/14/17 12:16) Iv Access Insert/Monitor (09/14/17 12:16) Sodium Chlor 0.9% 1000 Ml Inj (Ns 1000 M (09/14/17 12:30) Hydromorphone Pf Inj (Dilaudid Pf Inj) (09/14/17 12:30) Ondansetron Inj (Zofran Inj) (09/14/17 12:30) Electrocardiogram (09/14/17 12:20) Ckmb (Isoenzyme) Profile (09/14/17 12:20) Troponin I (09/14/17 12:20) Chest, Single Ap (09/14/17 12:20) CKMB (09/14/17 12:20) CKMB% (09/14/17 12:20) Hydromorphone Pf Inj (Dilaudid Pf Inj) (09/14/17 16:15) Labs Laboratory Tests Test 09/14/17 12:20 White Blood Count 13.1 TH/MM3 Red Blood Count 4.55 MIL/MM3 Hemoglobin 13.9 GM/DL Hematocrit 38.7 % Mean Corpuscular Volume 85.0 FL Mean Corpuscular Hemoglobin 30.6 PG Mean Corpuscular Hemoglobin Concent 36.0 % Red Cell Distribution Width 17.1 % Platelet Count 242 TH/MM3 Mean Platelet Volume 8.1 FL Neutrophils (%) (Auto) 72.8 % Lymphocytes (%) (Auto) 15.6 % Monocytes (%) (Auto) 9.8 % Eosinophils (%) (Auto) 1.2 % Basophils (%) (Auto) 0.6 % Neutrophils # (Auto) 9.5 TH/MM3 Lymphocytes # (Auto) 2.0 TH/MM3 Monocytes # (Auto) 1.3 TH/MM3 Eosinophils # (Auto) 0.2 TH/MM3 Basophils # (Auto) 0.1 TH/MM3 CBC Comment AUTO DIFF Differential Comment AUTO DIFF CONFIRMED Platelet Estimate NORMAL Platelet Morphology Comment NORMAL Target Cells 1+ Blood Urea Nitrogen 7 MG/DL Creatinine 0.84 MG/DL Random Glucose 99 MG/DL Calcium Level 9.7 MG/DL Sodium Level 135 MEQ/L Potassium Level 4.3 MEQ/L Chloride Level 100 MEQ/L Carbon Dioxide Level 26.7 MEQ/L Anion Gap 8 MEQ/L Estimat Glomerular Filtration Rate 131 ML/MIN Total Creatine Kinase 102 U/L Creatine Kinase MB LESS THAN 0.5 NG/ML Troponin I LESS THAN 0.02 NG/ML MDM Medical Decision Making Medical Screen Exam Complete: Yes Emergency Medical Condition: Yes Differential Diagnosis Sickle cell crisis versus metabolic drainage but versus dehydration. Narrative Course 27-year-old male with history of sickle cell disease, presents today with complaints of sickle cell pain. The patient was seen here 3 days ago for the same. At that time his reticulocyte count was 5.0. Patient has no fevers, chills. The patient was complaining of some chest discomfort. EKG and cardiac enzymes are within limits. The patient's been given 2 doses of dilaudid. He' ll be given a prescription for 15 tablets of Lortab. Informed him we will not fill any more of these Lortabs as he needs to follow up with a primary care doctor or matrix supervisor. He states he hasn't appointment to see matrix supervisor. Diagnosis Primary Impression: Sickle-cell disease with pain Additional Instructions: Drink plenty of fluids. Scripts Hydrocodone-Acetaminophen (Lortab) 5-325 Mg Tab 1 TAB PO Q6H Y for PAIN, #20 TAB 0 Refills Prov: Adrián Thompson MD 09/14/17 Disposition: 01 DISCHARGE HOME Condition: Stable Adrián Thompson MD Sep 14, 2017 14:45
[2017-09-14 16:00] VITALS: BP 143/88; PULSE 76; RESP 18; O2SAT 98
[2017-09-14] MEDS ORDERED: HYDROmorphone HCL PF 1 MG/ML VIAL IV PUSH ONE ×2 (16:15)
[2017-09-14] MEDS ORDERED: HYDR-3533 PO ×2 (17:36)
[2017-09-14 17:57] VITALS: BP 157/88
--- NOTE | 2017-09-14 23:28 | EKG ---
Date Performed: 09/14/2017 Time Performed: 13:35:10 PTAGE: 27 years EKG: Sinus rhythm WITH SHORT DE INTERVAL NONSPECIFIC ST & T-WAVE ABNORMALITY BORDERLINE ECG PREVIOUS TRACING : 09/11/2017 12.42 Compared to prior tracing no significant change DOCTOR: Domenico Lewis Interpretating Date/Time 09/14/2017 23:26:20
--- NOTE | 2017-09-14 23:28 | EKG ---
Date Performed: 09/14/2017 Time Performed: 13:35:10 PTAGE: 27 years EKG: Sinus rhythm WITH SHORT FL INTERVAL NONSPECIFIC ST & T-WAVE ABNORMALITY BORDERLINE ECG PREVIOUS TRACING : 09/11/2017 12.42 Compared to prior tracing no significant change DOCTOR: Domenico Lewis Interpretating Date/Time 09/14/2017 23:26:20
--- NOTE | 2017-09-14 23:28 | EKG ---
Date Performed: 09/14/2017 Time Performed: 13:35:10 PTAGE: 27 years EKG: Sinus rhythm WITH SHORT [place] INTERVAL NONSPECIFIC ST & T-WAVE ABNORMALITY BORDERLINE ECG PREVIOUS TRACING : 09/11/2017 12.42 Compared to prior tracing no significant change DOCTOR: Domenico Lewis Interpretating Date/Time 09/14/2017 23:26:20
== END 2017-09-14 17:59 | disposition home or self-care (01) ==
LOC: NEPE 11:46
DX: D57.00 Hb-SS disease with crisis, unspecified (principal); F17.200 Nicotine dependence, unspecified, uncomplicated; R94.31 Abnormal electrocardiogram [ECG] [EKG]
CPT/HCPCS: 71010; 80048; 82550; 82552; 84484; 85025; 93005; 96361; 96374; 96375; 96376; 99284; J1170; J2405; J7030

== ENCOUNTER 2017-10-02 19:07 | Emergency (ER) | payer MEDICAID ==
[~2017-10-02 19:07] MED LIST changes: -HYDR-3366 PO
[2017-10-02 19:09] VITALS: BP 123/81; PULSE 88; RESP 16; TEMP 98.5; O2SAT 98
[2017-10-02] MEDS ORDERED: KETOROLAC TROMETHAMINE 30 MG/ML (IVP) VIAL IVP ONE (19:30)
[2017-10-02] MEDS ORDERED: SODIUM CHLOR 0.9% 1000 ML INJ 1,000 ML IV ONE (19:30)
[2017-10-02] MEDS ORDERED: SODIUM CHLORIDE 0.9% FLUSH 10 ML FLUSH IVF PRN (19:30)
[2017-10-02 20:19] LABS: BASOPHIL # 0.1 TH/MM3 (0-0.2); EOSINOPHIL # 0.3 TH/MM3 (0-0.4); EOSINOPHIL % 3.2 % (0.0-4.0); HEMATOCRIT 33.8 % (39.0-51.0); HEMO FLAGS DIFF FINAL; LYMPH % 39.3 % (9.0-44.0); LYMPHOCYTE # 3.2 TH/MM3 (1.0-4.8); MEAN CELL VOLUME 83.3 FL (80.0-100.0); MEAN CORPUSCULAR HGB CONC 34.8 % (32.0-36.0); MONO % 7.4 % (0.0-8.0); NEUT % 49.1 % (16.0-70.0); PLATELET COUNT 336 TH/MM3 (150-450); RED BLOOD COUNT 4.06 MIL/MM3 (4.50-5.90); RED CELL DISTRIBUTION WIDTH 18.4 % (11.6-17.2); RETIC % 4.8 % (0.4-3.0); REVIEW FLAG FINAL; WHITE BLOOD COUNT 8.1 TH/MM3 (4.0-11.0)
--- NOTE | 2017-10-02 20:20 | PD ---
HPI . Sickle cell crisis Chief Complaint: Sickle Cell Time Seen by Provider: 19:25 Travel History International Travel<30 days: No Contact w/Intl Traveler<30days: No Traveled to known affect area: No History of Present Illness HPI This patient presents with the chief complaint of sickle cell crisis. Onset was today. He reports generalized pain. He states that he has not taken anything for it prior to presentation because he does not have anything to take. He states that he is not currently under the care of the dog. He states he has not been under the care of a doctor since he was a little boy. He denies chest pain, shortness of breath or fever. No modifying factors. He states that his pain as "severe." PFSH Past Medical History Hx Anticoagulant Therapy: No Asthma: Yes Blood Disorders: Yes (SICKLE CELL) Cardiovascular Problems: No Chemotherapy: No Cerebrovascular Accident: No Diabetes: No Diminished Hearing: No Gastrointestinal Disorders: No Genitourinary: No Musculoskeletal: No Neurologic: No Reproductive: No Respiratory: No Immunizations Current: Yes Sickle Cell Disease: Yes Past Surgical History Other Surgery: Yes (R+ Knee) Social History Alcohol Use: No Tobacco Use: Yes (1/2 ppd) Substance Use: No Allergies-Medications (Allergen,Severity, Reaction): Coded Allergies: No Known Allergies (Verified , 09/14/17) Reported Meds & Prescriptions Reported Meds & Active Scripts Active Lortab (Hydrocodone-Acetaminophen) 5-325 Mg Tab 1 Tab PO Q6H PRN Review of Systems Except as stated in HPI: all other systems reviewed are Neg Musculoskeletal: Positive: Myalgias Physical Exam Narrative GENERAL: Using the FLACC behavioral pain scale, his pain level is 0. He is lying on the stretcher watching TV very relaxed. SKIN: warm/dry. HEAD: Normocephalic. Atraumatic. EYES: Pupils equal and round. No scleral icterus. No injection or drainage. ENT: No nasal bleeding or discharge. Mucous membranes pink and moist. NECK: Trachea midline. Full range of motion without pain.. CARDIOVASCULAR: Regular rate and rhythm. Heart sounds are normal. He is not tachycardic. RESPIRATORY: No accessory muscle use. Clear to auscultation. Breath sounds equal bilaterally. GASTROINTESTINAL: Abdomen soft. Nontender. Bowel sounds present. Nondistended. MUSCULOSKELETAL: No obvious deformities. Nontender. NEUROLOGICAL: Awake and alert. No obvious cranial nerve deficits. Motor grossly within normal limits. Normal speech. PSYCHIATRIC: Appropriate mood and affect; insight and judgment normal. Data Data Last Documented VS Vital Signs Date Time Temp Pulse Resp B/P (MAP) Pulse Ox O2 Delivery O2 Flow Rate FiO2 10/02/17 21:00 72 20 134/80 (98) 100 Room Air 10/02/17 19:09 98.5 Orders Orders Complete Blood Count With Diff (10/02/17 19:30) Comprehensive Metabolic Panel (10/02/17 19:30) Retic Count (10/02/17 19:30) Iv Access Insert/Monitor (10/02/17 19:30) Ketorolac Inj (Toradol Inj) (10/02/17 19:30) Sodium Chloride 0.9% Flush (Ns Flush) (10/02/17 19:30) Sodium Chlor 0.9% 1000 Ml Inj (Ns 1000 M (10/02/17 19:30) Hydromorphone Pf Inj (Dilaudid Pf Inj) (10/02/17 20:30) Labs Laboratory Tests Test 10/02/17 19:45 White Blood Count 8.1 TH/MM3 Red Blood Count 4.06 MIL/MM3 Hemoglobin 11.8 GM/DL Hematocrit 33.8 % Mean Corpuscular Volume 83.3 FL Mean Corpuscular Hemoglobin 29.0 PG Mean Corpuscular Hemoglobin Concent 34.8 % Red Cell Distribution Width 18.4 % Platelet Count 336 TH/MM3 Mean Platelet Volume 7.3 FL Neutrophils (%) (Auto) 49.1 % Lymphocytes (%) (Auto) 39.3 % Monocytes (%) (Auto) 7.4 % Eosinophils (%) (Auto) 3.2 % Basophils (%) (Auto) 1.0 % Neutrophils # (Auto) 4.0 TH/MM3 Lymphocytes # (Auto) 3.2 TH/MM3 Monocytes # (Auto) 0.6 TH/MM3 Eosinophils # (Auto) 0.3 TH/MM3 Basophils # (Auto) 0.1 TH/MM3 CBC Comment DIFF FINAL Differential Comment Reticulocyte Count 4.8 % Absolute Reticulocyte Count 193.9 MIL/L Blood Urea Nitrogen 9 MG/DL Creatinine 0.94 MG/DL Random Glucose 87 MG/DL Total Protein 7.4 GM/DL Albumin 3.6 GM/DL Calcium Level 8.6 MG/DL Alkaline Phosphatase 111 U/L Aspartate Amino Transf (AST/SGOT) 23 U/L Alanine Aminotransferase (ALT/SGPT) 18 U/L Total Bilirubin 1.2 MG/DL Sodium Level 139 MEQ/L Potassium Level 4.3 MEQ/L Chloride Level 105 MEQ/L Carbon Dioxide Level 28.5 MEQ/L Anion Gap 6 MEQ/L Estimat Glomerular Filtration Rate 115 ML/MIN MDM Medical Decision Making Medical Screen Exam Complete: Yes Emergency Medical Condition: Yes Medical Record Reviewed: Yes (this patient is seen usually about 3 times per month for sickle cell I suspect. He was last seen on 09/14. He was given Dilaudid 2. He was given a prescription for Lortab but was told that that was the last time that he would be given a prescription for narcotics in this emergency department. Also, his baseline hemoglobin is 1213.) Differential Diagnosis My differential diagnosis of sickle cell disease includes but is not limited to vaso-occlusive crisis, acute chest syndrome, occult infection, electrolyte disturbance, drug-seeking behavior. Narrative Course This patient presents complaining with sickle cell crisis. He looks very comfortable. I have ordered IV fluids and IV Toradol for him. I will check labs. CBC & BMP Diagram 10/02/17 19:45 Total Protein 7.4, Albumin 3.6, Calcium Level 8.6, Alkaline Phosphatase 111, Aspartate Amino Transf (AST/SGOT) 23, Alanine Aminotransferase (ALT/SGPT) 18, Total Bilirubin 1.2 H Reticulocyte count is 4.8. This patient is stable for discharge to home. He has no signs or symptoms suggestive of acute chest syndrome. He is not appreciably anemic. Diagnosis Primary Impression: Sickle cell pain crisis Patient Instructions: General Instructions, Sickle Cell Disease (DC) Disposition: 01 DISCHARGE HOME Condition: Stable Ileana Haro MD Oct 02, 2017 20:20
[2017-10-02 20:30] LABS: ALT (GPT) 18 U/L (12-78)
[2017-10-02] MEDS ORDERED: HYDROmorphone HCL PF 2 MG/ML VIAL IV PUSH ONE (20:30)
[2017-10-02 20:32] LABS: ALKALINE PHOSPHATASE 111 U/L (45-117); TOTAL BILIRUBIN ADULT 1.2 MG/DL (0.2-1.0)
[2017-10-02 20:38] LABS: ANION GAP 6 MEQ/L (5-15); AST (GOT) 23 U/L (15-37); BICARBONATE 28.5 MEQ/L (21.0-32.0); BLOOD UREA NITROGEN 9 MG/DL (7-18); CHLORIDE 105 MEQ/L (98-107); GLOMERULAR FILTRATION RATE 115 ML/MIN (>89); POTASSIUM 4.3 MEQ/L (3.5-5.1); SODIUM (NA) 139 MEQ/L (136-145)
[2017-10-02 21:00] VITALS: BP 134/80; PULSE 72; RESP 20; O2SAT 100
== END 2017-10-02 22:27 | disposition home or self-care (01) ==
LOC: NEPD 19:07
DX: D57.00 Hb-SS disease with crisis, unspecified (principal); R52 Pain, unspecified; F17.200 Nicotine dependence, unspecified, uncomplicated; Z87.09 Personal history of other diseases of the respiratory system; Z86.2 Personal history of diseases of the blood and blood-forming organs and certain disorders involving the immune mechanism
CPT/HCPCS: 80053; 85025; 85044; 96361; 96374; 96375; 99284; J1170; J1885; J7030

== ENCOUNTER 2017-10-16 17:00 | Emergency (ER) | payer MEDICAID ==
[2017-10-16 17:05] VITALS: BP 126/72; PULSE 66; RESP 12; TEMP 98.4; O2SAT 96
[2017-10-16 18:35] LABS: AUTOMATED NEUTROPHIL # 3.1 TH/MM3 (1.8-7.7); BASOPHIL # 0.1 TH/MM3 (0-0.2); BASOPHIL % 1.4 % (0.0-2.0); EOSINOPHIL # 0.3 TH/MM3 (0-0.4); EOSINOPHIL % 4.6 % (0.0-4.0); HEMATOCRIT 36.3 % (39.0-51.0); LYMPH % 34.1 % (9.0-44.0); LYMPHOCYTE # 2.2 TH/MM3 (1.0-4.8); MEAN CORPUSCULAR HEMOGLOBIN 29.8 PG (27.0-34.0); MEAN CORPUSCULAR HGB CONC 35.9 % (32.0-36.0); MONO % 11.1 % (0.0-8.0); NEUT % 48.8 % (16.0-70.0); PLATELET COUNT 229 TH/MM3 (150-450); RED BLOOD COUNT 4.37 MIL/MM3 (4.50-5.90); RED CELL DISTRIBUTION WIDTH 18.7 % (11.6-17.2); RETIC % 4.4 % (0.4-3.0); WHITE BLOOD COUNT 6.4 TH/MM3 (4.0-11.0)
[2017-10-16 18:38] LABS: HEMO FLAGS AUTO DIFF; REVIEW FLAG AUTO DIFF
[2017-10-16 18:56] LABS: ANION GAP 5 MEQ/L (5-15); AST (GOT) 33 U/L (15-37); BICARBONATE 28.2 MEQ/L (21.0-32.0); BLOOD UREA NITROGEN 9 MG/DL (7-18); CHLORIDE 102 MEQ/L (98-107); GLOMERULAR FILTRATION RATE 100 ML/MIN (>89); SODIUM (NA) 135 MEQ/L (136-145)
[2017-10-16 18:57] LABS: ALT (GPT) 30 U/L (12-78)
[2017-10-16 18:59] LABS: ALKALINE PHOSPHATASE 103 U/L (45-117); TOTAL BILIRUBIN ADULT 1.5 MG/DL (0.2-1.0)
[2017-10-16 19:07] LABS: TARGET CELLS 2+ (NORMAL)
[2017-10-16 19:08] LABS: PLATELET ESTIMATE SMEAR NORMAL (NORMAL); PLATELET MORPHOLOGY NORMAL (NORMAL); SCAN/DIFF AUTO DIFF CONFIRMED
[2017-10-16 20:09] VITALS: BP 122/76; PULSE 64; RESP 18; TEMP 98.7; O2SAT 99
--- NOTE | 2017-10-16 20:13 | PD ---
HPI Chief Complaint: Sickle Cell Time Seen by Provider: 20:04 Travel History International Travel<30 days: No Contact w/Intl Traveler<30days: No Traveled to known affect area: No History of Present Illness HPI 27-year-old male with history of sickle cell anemia, here for evaluation of sickle cell pain as well as splenic pain. The patient reports that he has had pain for last 3 days over the area of the spleen. He reports having an enlarged spleen and is supposed follow-up with a doctor next month to see if should be removed. Pain is sharp, moderate, constant, worse with movement and palpation. He does not recall the name of this doctor. He denies chest pain or dyspnea. No fevers or chills. PFSH Past Medical History Hx Anticoagulant Therapy: No Asthma: Yes Blood Disorders: Yes (SICKLE CELL) Cardiovascular Problems: No Chemotherapy: No Cerebrovascular Accident: No Diabetes: No Diminished Hearing: No Gastrointestinal Disorders: No Genitourinary: No Musculoskeletal: No Neurologic: No Reproductive: No Respiratory: No Immunizations Current: Yes Sickle Cell Disease: Yes Past Surgical History Other Surgery: Yes (R+ Knee) Social History Alcohol Use: No Tobacco Use: Yes (3 OR 4 cigarettes/day ) Substance Use: No Allergies-Medications (Allergen,Severity, Reaction): Coded Allergies: No Known Allergies (Verified Adverse Reaction, Unknown, 10/16/17) Reported Meds & Prescriptions Reported Meds & Active Scripts Active Review of Systems Except as stated in HPI: all other systems reviewed are Neg Physical Exam Narrative GENERAL: Well-developed, well-nourished, comfortable, no apparent distress. SKIN: Focused skin assessment warm/dry. HEAD: Atraumatic. Normocephalic. EYES: Pupils equal and round. No scleral icterus. No injection or drainage. ENT: Mucous membranes pink and moist. NECK: Trachea midline. No JVD. CARDIOVASCULAR: Regular rate and rhythm. RESPIRATORY: No accessory muscle use. Clear to auscultation. Breath sounds equal bilaterally. GASTROINTESTINAL: Abdomen soft, nondistended. Palpable spleen edge below left costal margin with mild tenderness. No peritoneal signs. Rest of abdomen is soft and nontender. MUSCULOSKELETAL: No obvious deformities. No clubbing. No cyanosis. No edema. NEUROLOGICAL: Awake and alert. No obvious cranial nerve deficits. Motor grossly within normal limits. Normal speech. PSYCHIATRIC: Appropriate mood and affect; insight and judgment normal. Data Data Last Documented VS Vital Signs Date Time Temp Pulse Resp B/P (MAP) Pulse Ox O2 Delivery O2 Flow Rate FiO2 10/16/17 21:33 74 18 126/76 (93) 100 Room Air 10/16/17 20:09 98.7 Orders Orders Complete Blood Count With Diff (10/16/17 17:27) Retic Count (10/16/17 17:27) Lipase (10/16/17 17:27) Comprehensive Metabolic Panel (10/16/17 17:27) Hydromorphone Pf Inj (Dilaudid Pf Inj) (10/16/17 20:15) Sodium Chlor 0.9% 1000 Ml Inj (Ns 1000 M (10/16/17 20:15) Hydromorphone Pf Inj (Dilaudid Pf Inj) (10/16/17 22:15) Labs Laboratory Tests Test 10/16/17 18:00 White Blood Count 6.4 TH/MM3 Red Blood Count 4.37 MIL/MM3 Hemoglobin 13.0 GM/DL Hematocrit 36.3 % Mean Corpuscular Volume 83.0 FL Mean Corpuscular Hemoglobin 29.8 PG Mean Corpuscular Hemoglobin Concent 35.9 % Red Cell Distribution Width 18.7 % Platelet Count 229 TH/MM3 Mean Platelet Volume 7.4 FL Neutrophils (%) (Auto) 48.8 % Lymphocytes (%) (Auto) 34.1 % Monocytes (%) (Auto) 11.1 % Eosinophils (%) (Auto) 4.6 % Basophils (%) (Auto) 1.4 % Neutrophils # (Auto) 3.1 TH/MM3 Lymphocytes # (Auto) 2.2 TH/MM3 Monocytes # (Auto) 0.7 TH/MM3 Eosinophils # (Auto) 0.3 TH/MM3 Basophils # (Auto) 0.1 TH/MM3 CBC Comment AUTO DIFF Differential Comment AUTO DIFF CONFIRMED Platelet Estimate NORMAL Platelet Morphology Comment NORMAL Target Cells 2+ Reticulocyte Count 4.4 % Absolute Reticulocyte Count 194.2 MIL/L Blood Urea Nitrogen 9 MG/DL Creatinine 1.06 MG/DL Random Glucose 87 MG/DL Total Protein 8.5 GM/DL Albumin 4.2 GM/DL Calcium Level 8.9 MG/DL Alkaline Phosphatase 103 U/L Aspartate Amino Transf (AST/SGOT) 33 U/L Alanine Aminotransferase (ALT/SGPT) 30 U/L Total Bilirubin 1.5 MG/DL Sodium Level 135 MEQ/L Potassium Level 4.0 MEQ/L Chloride Level 102 MEQ/L Carbon Dioxide Level 28.2 MEQ/L Anion Gap 5 MEQ/L Estimat Glomerular Filtration Rate 100 ML/MIN Lipase 198 U/L [facility] Medical Decision Making Medical Screen Exam Complete: Yes Emergency Medical Condition: Yes Differential Diagnosis Sickle cell crisis, splenic sequestration, splenomegaly Narrative Course Vital signs show heart rate 66, blood pressure 126/72, pulse ox 99% on room air , oral temp of 98.4F. CBC: WBC 6.4, hemoglobin 13, hematocrit 36.3, platelets 229. CMP is unremarkable. Absolute reticulocyte count is 194. Reticulocyte count of 4.4%. Patient was given a liter of normal saline IV and IV Dilaudid. States his pain is slightly improved, however continues to have left upper quadrant abdominal pain. He does have an enlarged spleen to palpation and reports that he has had this for a while. Chart review shows that the patient had a CT abdomen pelvis in June 2015 that showed suspected calcification of the thoracic spleen. He states he has a follow-up appointment with a physician next month to evaluate his spleen for possible splenectomy. He does not recall the name of this physician. Lab values do not indicate splenic sequestration. At this point I believe he is stable for discharge home with further workup as an outpatient. On assessment the patient is resting quite comfortably watching TV. He was advised on when to return to the emergency department. He verbalizes understanding and agreement with plan. Diagnosis Primary Impression: Sickle-cell disease with pain Referrals: Primary Care Physician 3 days Additional Instructions: Follow-up with your physicians this week. Return to the emergency department for worsening symptoms or any other concerns. Disposition: 01 DISCHARGE HOME Condition: Stable Raymundo Rankin MD Oct 16, 2017 20:13
[2017-10-16] MEDS ORDERED: SODIUM CHLOR 0.9% 1000 ML INJ 1,000 ML IV ONE (20:15)
[2017-10-16] MEDS ORDERED: HYDROmorphone HCL PF 1 MG/ML VIAL IV PUSH ONE ×2 (20:15→22:15)
[2017-10-16 21:33] VITALS: BP 126/76; PULSE 74; RESP 18; O2SAT 100
[2017-10-16 22:21] VITALS: BP 120/67; PULSE 74; RESP 18; O2SAT 100
== END 2017-10-16 23:52 | disposition home or self-care (01) ==
LOC: NEPD 17:00
DX: D57.1 Sickle-cell disease without crisis (principal); R10.12 Left upper quadrant pain; R16.1 Splenomegaly, not elsewhere classified; J45.909 Unspecified asthma, uncomplicated; F17.210 Nicotine dependence, cigarettes, uncomplicated
CPT/HCPCS: 80053; 83690; 85025; 85044; 96361; 96374; 96375; 99284; J1170; J7030

== ENCOUNTER 2017-11-01 16:43 | Emergency (ER) | payer MEDICAID ==
[2017-11-01 16:45] VITALS: BP 131/73; PULSE 85; RESP 16; TEMP 98; O2SAT 98
--- NOTE | 2017-11-01 18:08 | PD ---
HPI Chief Complaint: Sickle Cell Time Seen by Provider: 17:55 Travel History International Travel<30 days: No Contact w/Intl Traveler<30days: No Traveled to known affect area: No History of Present Illness HPI This patient complains of sickle cell pain. 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 He does not have sickle cell per se. His hemoglobins are always running around 13. He complains of diffuse pain. Severity is moderate. Duration 2 days. No alleviating factors. No exacerbating factors. He denies fever or chest pain. PFSH Past Medical History Hx Anticoagulant Therapy: No Asthma: Yes Autoimmune Disease: Yes Blood Disorders: Yes (SICKLE CELL) Cardiovascular Problems: No Chemotherapy: No Cerebrovascular Accident: No Diabetes: No Diminished Hearing: No Gastrointestinal Disorders: No Genitourinary: No Musculoskeletal: No Neurologic: No Reproductive: No Respiratory: No Immunizations Current: Yes Sickle Cell Disease: Yes Tetanus Vaccination: < 5 Years Influenza Vaccination: Yes Past Surgical History Other Surgery: Yes (R+ Knee) Social History Alcohol Use: No Tobacco Use: Yes (3 OR 4 cigarettes/day ) Substance Use: No Allergies-Medications (Allergen,Severity, Reaction): Coded Allergies: No Known Allergies (Verified Adverse Reaction, Unknown, 11/01/17) Reported Meds & Prescriptions Reported Meds & Active Scripts Active No Active Prescriptions or Reported Medications Review of Systems General / Constitutional: No: Fever Eyes: No: Visual changes HENT: No: Headaches Cardiovascular: No: Chest Pain or Discomfort Respiratory: No: Shortness of Breath Gastrointestinal: No: Abdominal Pain Genitourinary: No: Dysuria Musculoskeletal: Positive: Pain Skin: No Rash Neurologic: No: Weakness Psychiatric: No: Depression Endocrine: No: Polydipsia Hematologic/Lymphatic: No: Easy Bruising Physical Exam Narrative GENERAL: Well-nourished, well-developed patient in no apparent distress. SKIN: Focused skin assessment reveals no rash and nodules. Skin is Warm and dry. HEAD: Atraumatic. Normocephalic. EYES: Pupils equal and round. No scleral icterus. No injection or drainage. ENT: No nasal bleeding or discharge. Mucous membranes pink and moist. NECK: Trachea midline. No JVD. CARDIOVASCULAR: Regular rate and rhythm. No murmur appreciated. RESPIRATORY: No accessory muscle use. Clear to auscultation. Breath sounds equal bilaterally. GASTROINTESTINAL: Abdomen soft, non-tender, nondistended. Hepatic and splenic margins not palpable. MUSCULOSKELETAL: No obvious deformities. No clubbing. No cyanosis. No edema. NEUROLOGICAL: Awake and alert. No obvious cranial nerve deficits. Motor grossly within normal limits. Normal speech. PSYCHIATRIC: Appropriate mood and affect; insight and judgment normal. Data Data Last Documented VS Vital Signs Date Time Temp Pulse Resp B/P (MAP) Pulse Ox O2 Delivery O2 Flow Rate FiO2 11/01/17 18:21 16 11/01/17 17:35 99 Room Air 11/01/17 16:45 98.0 85 131/73 (92) Orders Orders Iv Access Insert/Monitor (11/01/17 18:06) Complete Blood Count With Diff (11/01/17 18:06) Ondansetron Inj (Zofran Inj) (11/01/17 18:15) Sodium Chlor 0.9% 1000 Ml Inj (Ns 1000 M (11/01/17 18:15) Morphine Inj (Morphine Inj) (11/01/17 18:15) Ed Discharge Order (11/01/17 20:23) Labs Laboratory Tests Test 11/01/17 18:10 White Blood Count 8.0 TH/MM3 Red Blood Count 4.62 MIL/MM3 Hemoglobin 13.5 GM/DL Hematocrit 38.0 % Mean Corpuscular Volume 82.3 FL Mean Corpuscular Hemoglobin 29.2 PG Mean Corpuscular Hemoglobin Concent 35.5 % Red Cell Distribution Width 18.0 % Platelet Count 275 TH/MM3 Mean Platelet Volume 7.9 FL Neutrophils (%) (Auto) 46.0 % Lymphocytes (%) (Auto) 37.7 % Monocytes (%) (Auto) 10.2 % Eosinophils (%) (Auto) 5.0 % Basophils (%) (Auto) 1.1 % Neutrophils # (Auto) 3.7 TH/MM3 Lymphocytes # (Auto) 3.0 TH/MM3 Monocytes # (Auto) 0.8 TH/MM3 Eosinophils # (Auto) 0.4 TH/MM3 Basophils # (Auto) 0.1 TH/MM3 CBC Comment AUTO DIFF Differential Comment AUTO DIFF CONFIRMED Platelet Estimate NORMAL Platelet Morphology Comment NORMAL Sickle Cells 1+ Target Cells 1+ Stomatocytes 1+ MDM Medical Decision Making Medical Screen Exam Complete: Yes Emergency Medical Condition: Yes Medical Record Reviewed: Yes Differential Diagnosis Anemia, sickle crisis, narcotic seeking behavior, malingering Narrative Course I have reviewed the patient's electronic medical record. Patient is a frequent visitor for pain medicine IV placed CBC is normal with hemoglobin of 13.5 I gave him a liter normal saline IV and IV Zofran and 1 dose of IV morphine Stable for outpatient follow-up. Diagnosis Primary Impression: Hemoglobin SC disease Qualified Codes: D57.20 - Sickle-cell/Hb-C disease without crisis Additional Impression: Diffuse pain Additional Instructions: The patient was advised to follow up with their physician and return if they worsen. Med/Other Pt SpecificInfo: Other Scripts No Active Prescriptions or Reported Meds Disposition: 01 DISCHARGE HOME Condition: Stable Yunior Trujillo MD Nov 01, 2017 18:08
[2017-11-01] MEDS ORDERED: SODIUM CHLOR 0.9% 1000 ML INJ 1,000 ML IV ONE (18:15)
[2017-11-01] MEDS ORDERED: ONDANSETRON HCL 4 MG/2 ML VIAL IV ONE (18:15)
[2017-11-01] MEDS ORDERED: MORPHINE SULFATE 4 MG/ML INJ IV PUSH ONE (18:15)
[2017-11-01 18:21] VITALS: RESP 16
[2017-11-01 18:51] LABS: AUTOMATED NEUTROPHIL # 3.7 TH/MM3 (1.8-7.7); BASOPHIL # 0.1 TH/MM3 (0-0.2); BASOPHIL % 1.1 % (0.0-2.0); EOSINOPHIL # 0.4 TH/MM3 (0-0.4); LYMPH % 37.7 % (9.0-44.0); MEAN CELL VOLUME 82.3 FL (80.0-100.0); MEAN CORPUSCULAR HEMOGLOBIN 29.2 PG (27.0-34.0); MEAN CORPUSCULAR HGB CONC 35.5 % (32.0-36.0); MONO % 10.2 % (0.0-8.0); PLATELET COUNT 275 TH/MM3 (150-450); RED BLOOD COUNT 4.62 MIL/MM3 (4.50-5.90)
[2017-11-01 18:56] LABS: HEMO FLAGS AUTO DIFF
[2017-11-01 19:43] LABS: PLATELET ESTIMATE SMEAR NORMAL (NORMAL); PLATELET MORPHOLOGY NORMAL (NORMAL); SCAN/DIFF AUTO DIFF CONFIRMED; SICKLE CELLS 1+ (NORMAL); STOMATOCYTES 1+ (NORMAL); TARGET CELLS 1+ (NORMAL)
[2017-11-01 21:05] VITALS: BP 102/57; TEMP 98
== END 2017-11-01 21:53 | disposition home or self-care (01) ==
LOC: NEPD 16:43
DX: D57.20 Sickle-cell/Hb-C disease without crisis (principal); J45.909 Unspecified asthma, uncomplicated; F17.210 Nicotine dependence, cigarettes, uncomplicated
CPT/HCPCS: 85025; 96361; 96374; 96375; 99284; J2270; J2405; J7030

== ENCOUNTER 2017-11-19 02:20 | Emergency (ER) | payer MEDICAID ==
[~2017-11-19] VITALS: Ht 167.6 cm; Wt 62.3 kg
[2017-11-19 02:21] VITALS: BP 132/72; PULSE 78; RESP 16; TEMP 97.8; O2SAT 99
[2017-11-19] MEDS ORDERED: SODIUM CHLORIDE 0.9% FLUSH 10 ML FLUSH IVF PRN (03:00)
--- NOTE | 2017-11-19 03:00 | PD ---
HPI Chief Complaint: Sickle Cell Time Seen by Provider: 02:30 Travel History International Travel<30 days: No Contact w/Intl Traveler<30days: No Traveled to known affect area: No History of Present Illness HPI The patient is a 27 year old male who presents to the [facility] emergency department with a history of reportedly having a sudden onset of pain all throughout his body at the end of his work shift earlier tonight. He reports that he has a history of sickle cell disease. He reports that the symptoms are similar to his prior pain crises. The patient denies being on any medications currently for sickle cell disease. He reports he is in the process of being referred to a doctor in [place] for treatment. The patient reports that the cold usually triggers his crises. He denies having any joint swelling or erythema. He denies having any fevers or chills, cough or congestion. He denies having any chest pain, chest pressure, or shortness of breath. Otherwise on review of systems, the patient denies having any neck stiffness, abdominal pain, vomiting, diarrhea, urinary symptoms, or neurologic symptoms. [facility] Past Medical History Narrative Medical The patient's past medical history is significant for sickle cell disease, asthma, tobacco use Hx Anticoagulant Therapy: No Asthma: Yes Autoimmune Disease: Yes Blood Disorders: Yes (SICKLE CELL) Cardiovascular Problems: No Chemotherapy: No Cerebrovascular Accident: No Diabetes: No Diminished Hearing: No Gastrointestinal Disorders: No Genitourinary: No Musculoskeletal: No Neurologic: No Reproductive: No Respiratory: No Immunizations Current: Yes Sickle Cell Disease: Yes Past Surgical History Narrative Surgical The patient's past surgical history is significant for right knee surgery. Other Surgery: Yes (R+ Knee) Social History Alcohol Use: No Tobacco Use: Yes (3 OR 4 cigarettes/day ) Substance Use: No Allergies-Medications (Allergen,Severity, Reaction): Coded Allergies: No Known Allergies (Verified Adverse Reaction, Unknown, 11/19/17) Reported Meds & Prescriptions Reported Meds & Active Scripts Active [place] (Hydrocodone-Acetaminophen) 5 Mg-325 Mg Tab 1 Tab PO Q6H PRN Review of Systems Except as stated in HPI: all other systems reviewed are Neg General / Constitutional: No: Fever Eyes: No: Visual changes HENT: No: Headaches Cardiovascular: No: Chest Pain or Discomfort Respiratory: No: Shortness of Breath Gastrointestinal: No: Abdominal Pain Genitourinary: No: Dysuria Musculoskeletal: Positive: Myalgias, Arthralgias, Pain, No: Limited ROM, Edema Skin: No Rash Neurologic: No: Weakness Psychiatric: No: Depression Endocrine: No: Polydipsia Hematologic/Lymphatic: No: Easy Bruising Physical Exam Narrative General: The patient is a well-developed well-nourished male in no acute distress. Head and Neck exam: Head is normocephalic atraumatic. Eyes: EOMI, pupils are equal round and reactive to light. Nose: Midline septum with pink mucous membranes Mouth: Dentition unremarkable. Moist mucus membranes. Posterior oropharynx is not erythematous. No tonsillar hypertrophy. Uvula midline. Airway patent. Neck: No palpable lymphadenopathy. No nuchal rigidity. No thyromegaly. Cardiovascular: Regular rate and rhythm without murmurs, gallops, or rubs. Lungs: Clear to auscultation bilaterally. No wheezes, rhonchi, or rales. Abdomen: Soft, without tenderness to palpation in all 4 quadrants of the abdomen. No guarding, rebound, or rigidity. Normal bowel sounds are audible. No tenderness on palpation of McBurney's point. Extremities: No clubbing, cyanosis, or edema. 2+ pulses in all 4 extremities. No joint swelling or erythema noted. No deformity of his joints noted. He has full range of motion of all extremities. Back: No spinous process tenderness to palpation. No costovertebral angle tenderness to palpation. Neurologic Exam: Grossly nonfocal. Skin Exam: No rash noted. Intact skin that is warm and dry. Data Data Last Documented VS Vital Signs Date Time Temp Pulse Resp B/P (MAP) Pulse Ox O2 Delivery O2 Flow Rate FiO2 11/19/17 05:21 11/19/17 02:21 97.8 78 16 99 Room Air Orders Orders Complete Blood Count With Diff (11/19/17 02:52) Comprehensive Metabolic Panel (11/19/17 02:52) Retic Count (11/19/17 02:52) Ecg Monitoring (11/19/17 02:52) Iv Access Insert/Monitor (11/19/17 02:52) Oximetry (11/19/17 02:52) Sodium Chloride 0.9% Flush (Ns Flush) (11/19/17 03:00) Sodium Chlor 0.9% 1000 Ml Inj (Ns 1000 M (11/19/17 03:30) Ketorolac Inj (Toradol Inj) (11/19/17 03:30) Morphine Inj (Morphine Inj) (11/19/17 04:45) Ondansetron Inj (Zofran Inj) (11/19/17 04:45) Ed Discharge Order (11/19/17 05:14) Labs Laboratory Tests Test 11/19/17 02:50 White Blood Count 7.4 TH/MM3 Red Blood Count 4.24 MIL/MM3 Hemoglobin 12.6 GM/DL Hematocrit 35.0 % Mean Corpuscular Volume 82.4 FL Mean Corpuscular Hemoglobin 29.7 PG Mean Corpuscular Hemoglobin Concent 36.0 % Red Cell Distribution Width 17.8 % Platelet Count 258 TH/MM3 Mean Platelet Volume 7.7 FL Neutrophils (%) (Auto) 39.5 % Lymphocytes (%) (Auto) 41.8 % Monocytes (%) (Auto) 12.5 % Eosinophils (%) (Auto) 5.5 % Basophils (%) (Auto) 0.7 % Neutrophils # (Auto) 2.9 TH/MM3 Lymphocytes # (Auto) 3.1 TH/MM3 Monocytes # (Auto) 0.9 TH/MM3 Eosinophils # (Auto) 0.4 TH/MM3 Basophils # (Auto) 0.1 TH/MM3 CBC Comment AUTO DIFF Differential Comment AUTO DIFF CONFIRMED Platelet Estimate NORMAL Platelet Morphology Comment NORMAL Spherocytes OCC Sickle Cells 1+ Target Cells 2+ Ovalocytes 1+ Stomatocytes 1+ Reticulocyte Count 4.5 % Absolute Reticulocyte Count 190.4 MIL/L Blood Urea Nitrogen 11 MG/DL Creatinine 0.92 MG/DL Random Glucose 106 MG/DL Total Protein 7.9 GM/DL Albumin 4.0 GM/DL Calcium Level 8.9 MG/DL Alkaline Phosphatase 107 U/L Aspartate Amino Transf (AST/SGOT) 18 U/L Alanine Aminotransferase (ALT/SGPT) 24 U/L Total Bilirubin 1.5 MG/DL Sodium Level 142 MEQ/L Potassium Level 4.0 MEQ/L Chloride Level 108 MEQ/L Carbon Dioxide Level 28.7 MEQ/L Anion Gap 5 MEQ/L Estimat Glomerular Filtration Rate 118 ML/MIN [facility] Medical Decision Making Medical Screen Exam Complete: Yes Emergency Medical Condition: Yes Medical Record Reviewed: Yes Differential Diagnosis Sickle cell pain crisis, versus arthritis, versus viral syndrome with arthralgias, versus pain medication seeking behavior. Narrative Course During the course of the patients emergency department visit, the patients history, examination, and differential diagnosis were reviewed with the patient. The patient was placed on a director cardiac with oximetry and frequent blood pressure monitoring. The patient had IV access obtained and blood work sent for analysis. The patient was initially provided normal saline 1 L IV fluid bolus. The patient is given Toradol for pain. The patients laboratory studies were reviewed and remarkable for a white count of 7.4, hemoglobin 12.6, platelets 258 with 12.5 monocytes, reticulocyte count 4.5, CMP is remarkable for chloride 108, total bilirubin 1.5. The patient reported continued pain and was given morphine 4 mg IV, Zofran 4 mg IV. The patient reports that he is scheduled for an appointment with a natural gas treating unit operator in [place]. The patient reports that he has no pain medication at home. The patient was given a short course of [place] for his sickle cell pain crisis. The patient is resting comfortably and feels better, is alert and in no distress. The patients results and examination findings were discussed with the patient. The repeat examination is unremarkable and benign. The history, exam, diagnostic testing, and current condition do not suggest any significant pathology to warrant further testing, continued ED treatment, admission, or surgical evaluation at this point. The vital signs have been stable. The patient does not have uncontrollable pain, intractable vomiting, or other significant symptoms. The patient's condition is stable and appropriate for discharge. The patient will pursue further outpatient evaluation with a primary care physician or other designated or consulting physician as indicated in the discharge instructions. The patient expressed understanding and was agreeable with this plan. Diagnosis Primary Impression: Sickle-cell disease with pain Referrals: Primary Care Physician 2 days Patient Instructions: Sickle Cell Crisis (ED) Med/Other Pt SpecificInfo: Prescription(s) given Scripts Hydrocodone-Acetaminophen ([place]) 5 Mg-325 Mg Tab 1 TAB PO Q6H Y for PAIN, #12 TAB 0 Refills Prov: Laura Yang MD 11/19/17 Disposition: 01 DISCHARGE HOME Condition: Stable Laura Yang MD Nov 19, 2017 03:00
[2017-11-19 03:25] LABS: AUTOMATED NEUTROPHIL # 2.9 TH/MM3 (1.8-7.7); BASOPHIL # 0.1 TH/MM3 (0-0.2); BASOPHIL % 0.7 % (0.0-2.0); EOSINOPHIL # 0.4 TH/MM3 (0-0.4); EOSINOPHIL % 5.5 % (0.0-4.0); HEMOGLOBIN 12.6 GM/DL (13.0-17.0); LYMPH % 41.8 % (9.0-44.0); LYMPHOCYTE # 3.1 TH/MM3 (1.0-4.8); MEAN CELL VOLUME 82.4 FL (80.0-100.0); MEAN CORPUSCULAR HEMOGLOBIN 29.7 PG (27.0-34.0); MEAN PLATELET VOLUME 7.7 FL (7.0-11.0); MONO % 12.5 % (0.0-8.0); MONOCYTE # 0.9 TH/MM3 (0-0.9); NEUT % 39.5 % (16.0-70.0); PLATELET COUNT 258 TH/MM3 (150-450); RED BLOOD COUNT 4.24 MIL/MM3 (4.50-5.90); RED CELL DISTRIBUTION WIDTH 17.8 % (11.6-17.2); RETIC # 190.4 MIL/L (20.0-150.0); RETIC % 4.5 % (0.4-3.0); WHITE BLOOD COUNT 7.4 TH/MM3 (4.0-11.0)
[2017-11-19] MEDS ORDERED: KETOROLAC TROMETHAMINE 30 MG/ML (IVP) VIAL IV PUSH ONE (03:30)
[2017-11-19] MEDS ORDERED: SODIUM CHLOR 0.9% 1000 ML INJ 1,000 ML IV ONE (03:30)
[2017-11-19 03:45] LABS: ALT (GPT) 24 U/L (12-78); AST (GOT) 18 U/L (15-37); BICARBONATE 28.7 MEQ/L (21.0-32.0); BLOOD UREA NITROGEN 11 MG/DL (7-18); CALCIUM 8.9 MG/DL (8.5-10.1); CHLORIDE 108 MEQ/L (98-107); CREATININE 0.92 MG/DL (0.60-1.30); GLOMERULAR FILTRATION RATE 118 ML/MIN (>89); GLUCOSE,RANDOM 106 MG/DL (74-106); SODIUM (NA) 142 MEQ/L (136-145)
[2017-11-19 03:47] LABS: ALKALINE PHOSPHATASE 107 U/L (45-117); TOTAL BILIRUBIN ADULT 1.5 MG/DL (0.2-1.0); TOTAL PROTEIN 7.9 GM/DL (6.4-8.2)
[2017-11-19 04:10] LABS: TARGET CELLS 2+ (NORMAL)
[2017-11-19 04:11] LABS: OVALOCYTES 1+ (NORMAL); SICKLE CELLS 1+ (NORMAL); SPHEROCYTES OCC (NORMAL); STOMATOCYTES 1+ (NORMAL)
[2017-11-19] MEDS ORDERED: NORC5TAB PO (04:39)
[2017-11-19] MEDS ORDERED: MORPHINE SULFATE 2 MG/ML INJ IV PUSH ONE (04:45)
[2017-11-19] MEDS ORDERED: ONDANSETRON HCL 4 MG/2 ML VIAL IV PUSH ONE (04:45)
== END 2017-11-19 05:28 | disposition home or self-care (01) ==
LOC: NEPE 02:20
DX: D57.00 Hb-SS disease with crisis, unspecified (principal); J45.909 Unspecified asthma, uncomplicated; F17.210 Nicotine dependence, cigarettes, uncomplicated
CPT/HCPCS: 80053; 85025; 85044; 96361; 96374; 96375; 99284; J1885; J2270; J2405; J7030

== ENCOUNTER 2017-11-25 07:53 | Emergency (ER) | payer MEDICAID ==
[~2017-11-25] VITALS: Ht 170.2 cm; Wt 65.0 kg
[~2017-11-25 07:53] MED LIST changes: -HYDR-3533 PO; +NORC5TAB PO
[2017-11-25 08:04] VITALS: BP 120/73; PULSE 51; RESP 16; TEMP 98.3; O2SAT 100
--- NOTE | 2017-11-25 08:30 | PD ---
HPI Chief Complaint: Sickle Cell Time Seen by Provider: 08:30 Travel History International Travel<30 days: No Contact w/Intl Traveler<30days: No Traveled to known affect area: No History of Present Illness HPI 27-year-old male came to the emergency room with history of body wide pain and stiffness that started since last night. Patient has sickle cell disease and was brought in by EMS. Vital signs are stable. Patient was in the emergency room 2-3 days ago for painful crisis. Currently he says he knows that he is not in crisis but just that his body has stiffened up and he can't move. Blood test done 2-3 days ago were within acceptable limits. He has an appointment with a nut picker for the first time this Monday. COUNTS INCLUDE 234 BEDS AT THE [facility] Past Medical History Narrative Medical List of his past medical, surgical, social and family history is reviewed from the nursing note. Hx Anticoagulant Therapy: No Asthma: Yes Autoimmune Disease: Yes Blood Disorders: Yes (SICKLE CELL) Cardiovascular Problems: No Chemotherapy: No Cerebrovascular Accident: No Diabetes: No Diminished Hearing: No Gastrointestinal Disorders: No Genitourinary: No Musculoskeletal: No Neurologic: No Reproductive: No Respiratory: No Immunizations Current: Yes Sickle Cell Disease: Yes Tetanus Vaccination: < 5 Years Influenza Vaccination: No Past Surgical History Other Surgery: Yes (R+ Knee) Social History Alcohol Use: No Tobacco Use: Yes (3 OR 4 cigarettes/day ) Substance Use: No (DENIES) Allergies-Medications (Allergen,Severity, Reaction): Coded Allergies: No Known Allergies (Verified Adverse Reaction, Unknown, 11/25/17) Comments No known drug allergies. Reported Meds & Prescriptions Reported Meds & Active Scripts Active [place] (Hydrocodone-Acetaminophen) 5 Mg-325 Mg Tab 1 Tab PO Q6H PRN Narrative Medication List of his home medications reviewed from the nursing note. Review of Systems Except as stated in HPI: all other systems reviewed are Neg Physical Exam Narrative GENERAL: Awake, alert, moderate distress SKIN: Focused skin assessment warm/dry. HEAD: Atraumatic. Normocephalic. EYES: Pupils equal and round. No scleral icterus. No injection or drainage. ENT: No nasal bleeding or discharge. Mucous membranes pink and moist. NECK: Trachea midline. No JVD. CARDIOVASCULAR: Regular rate and rhythm. No murmur appreciated. RESPIRATORY: No accessory muscle use. Clear to auscultation. Breath sounds equal bilaterally. GASTROINTESTINAL: Abdomen soft, non-tender, nondistended. Hepatic and splenic margins not palpable. MUSCULOSKELETAL: No obvious deformities. No clubbing. No cyanosis. No edema. NEUROLOGICAL: Awake and alert. No obvious cranial nerve deficits. Motor grossly within normal limits. Normal speech. PSYCHIATRIC: Appropriate mood and affect; insight and judgment normal. Data Data Last Documented VS Vital Signs Date Time Temp Pulse Resp B/P (MAP) Pulse Ox O2 Delivery O2 Flow Rate FiO2 11/25/17 10:11 56 16 118/63 (81) 100 11/25/17 08:04 Room Air 11/25/17 08:04 98.3 Orders Orders Sodium Chlor 0.9% 1000 Ml Inj (Ns 1000 M (11/25/17 08:45) Morphine Inj (Morphine Inj) (11/25/17 08:45) Orphenadrine Inj (Norflex Inj) (11/25/17 08:45) Ed Discharge Order (11/25/17 08:40) MDM Medical Decision Making Medical Screen Exam Complete: Yes Emergency Medical Condition: Yes Medical Record Reviewed: Yes Differential Diagnosis Chronic pain syndrome, sickle cell crisis Narrative Course A 30 9 AM patient will get IV fluid, pain medication and muscle relaxant. After that he'll be discharged home. I have chosen not to do any blood work on him since one was done just couple days ago. Patient understands and is okay with the plan. Procedures EKG Prior to Arrival: No Diagnosis Primary Impression: acute on chronic pain Additional Impression: Sickle cell disease Qualified Codes: D57.1 - Sickle-cell disease without crisis Referrals: Primary Care Physician Disposition: 01 DISCHARGE HOME Condition: Stable Edin Lundberg MD Nov 25, 2017 08:30
[2017-11-25 08:44] VITALS: BP 116/70; PULSE 55; RESP 18; O2SAT 100
[2017-11-25] MEDS ORDERED: ORPHENADRINE INJ 60 MG/2 ML AMP IM ONE (08:45)
[2017-11-25] MEDS ORDERED: MORPHINE SULFATE 2 MG/ML INJ IV PUSH ONE (08:45)
[2017-11-25] MEDS ORDERED: SODIUM CHLOR 0.9% 1000 ML INJ 1,000 ML IV ONE (08:45)
[2017-11-25 10:11] VITALS: BP 118/63
== END 2017-11-25 10:10 | disposition home or self-care (01) ==
LOC: NEPC 07:53
DX: D57.1 Sickle-cell disease without crisis (principal); G89.29 Other chronic pain; J45.909 Unspecified asthma, uncomplicated; F17.210 Nicotine dependence, cigarettes, uncomplicated
CPT/HCPCS: 96361; 96372; 96374; 99284; J2270; J2360; J7030

== ENCOUNTER 2017-12-11 20:11 | Emergency (ER) | payer MEDICAID ==
[2017-12-11 20:13] VITALS: BP 125/74; PULSE 64; RESP 16; TEMP 98.6; O2SAT 99
== END 2017-12-11 20:45 | disposition left against medical advice (07) ==
LOC: NED 20:11
DX: D57.1 Sickle-cell disease without crisis (principal)
CPT/HCPCS: 99281

== ENCOUNTER 2017-12-13 14:08 | Emergency (ER) | payer MEDICAID ==
[~2017-12-13] VITALS: Ht 170.2 cm; Wt 68.0 kg
[2017-12-13 14:09] VITALS: BP 134/75; PULSE 70; RESP 16; TEMP 98.8; O2SAT 99
[2017-12-13 15:27] LABS: AUTOMATED NEUTROPHIL # 2.8 TH/MM3 (1.8-7.7); BASOPHIL % 0.7 % (0.0-2.0); EOSINOPHIL # 0.4 TH/MM3 (0-0.4); EOSINOPHIL % 6.6 % (0.0-4.0); HEMATOCRIT 36.6 % (39.0-51.0); HEMOGLOBIN 13.2 GM/DL (13.0-17.0); LYMPH % 37.1 % (9.0-44.0); LYMPHOCYTE # 2.4 TH/MM3 (1.0-4.8); MEAN CELL VOLUME 81.7 FL (80.0-100.0); MEAN CORPUSCULAR HEMOGLOBIN 29.4 PG (27.0-34.0); MEAN PLATELET VOLUME 7.3 FL (7.0-11.0); MONO % 11.9 % (0.0-8.0); MONOCYTE # 0.8 TH/MM3 (0-0.9); NEUT % 43.7 % (16.0-70.0); PLATELET COUNT 244 TH/MM3 (150-450); RED BLOOD COUNT 4.48 MIL/MM3 (4.50-5.90); RED CELL DISTRIBUTION WIDTH 17.2 % (11.6-17.2); RETIC # 186.7 MIL/L (20.0-150.0); RETIC % 4.2 % (0.4-3.0); WHITE BLOOD COUNT 6.5 TH/MM3 (4.0-11.0)
[2017-12-13] MEDS ORDERED: HYDROmorphone HCL PF 2 MG/ML VIAL IV PUSH ONE (15:30)
[2017-12-13] MEDS ORDERED: SODIUM CHLOR 0.9% 1000 ML INJ 1,000 ML IV ONE (15:30)
[2017-12-13 16:00] VITALS: BP 128/71; PULSE 68; RESP 18; O2SAT 98
[2017-12-13 16:01] LABS: ALBUMIN 4.2 GM/DL (3.4-5.0); ALT (GPT) 16 U/L (12-78); AST (GOT) 20 U/L (15-37); BICARBONATE 23.6 MEQ/L (21.0-32.0); BLOOD UREA NITROGEN 9 MG/DL (7-18); CALCIUM 8.6 MG/DL (8.5-10.1); CHLORIDE 111 MEQ/L (98-107); CREATININE 1.02 MG/DL (0.60-1.30); GLOMERULAR FILTRATION RATE 105 ML/MIN (>89); GLUCOSE,RANDOM 93 MG/DL (74-106); SODIUM (NA) 142 MEQ/L (136-145)
[2017-12-13 16:03] LABS: ALKALINE PHOSPHATASE 92 U/L (45-117); TOTAL BILIRUBIN ADULT 1.4 MG/DL (0.2-1.0); TOTAL PROTEIN 7.8 GM/DL (6.4-8.2)
[2017-12-13 16:16] LABS: TARGET CELLS 1+ (NORMAL)
[2017-12-13 16:17] LABS: SPHEROCYTES 1+ (NORMAL)
[2017-12-13] MEDS ORDERED: NORC5TAB PO (16:39)
--- NOTE | 2017-12-13 16:41 | PD ---
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 Patient reports that he is having difficulty getting into a grinder gear. He doesn't have any pain medicine at home. PFSH Past Medical History Hx Anticoagulant Therapy: No Asthma: Yes Autoimmune Disease: Yes Blood Disorders: Yes (SICKLE CELL) Cardiovascular Problems: No Chemotherapy: No Cerebrovascular Accident: No Diabetes: No Diminished Hearing: No Gastrointestinal Disorders: No Genitourinary: No Musculoskeletal: No Neurologic: No Reproductive: No Respiratory: No Immunizations Current: Yes Sickle Cell Disease: Yes Tetanus Vaccination: < 5 Years Influenza Vaccination: No Past Surgical History Other Surgery: Yes (R+ Knee) Social History Alcohol Use: No Tobacco Use: Yes (3 OR 4 cigarettes/day ) Substance Use: No (DENIES) Allergies-Medications (Allergen,Severity, Reaction): Coded Allergies: No Known Allergies (Verified Adverse Reaction, Unknown, 12/13/17) Reported Meds & Prescriptions Reported Meds & Active Scripts Active No Active Prescriptions or Reported Medications Review of Systems Except as stated in HPI: all other systems reviewed are Neg Physical Exam Narrative GENERAL:Well appearing, no acute distress SKIN: Focused skin assessment warm and dry. HEAD: Atraumatic. Normocephalic. EYES: Pupils equal and round. No injection or drainage. ENT: Moist mucous membranes NECK: Trachea midline. CARDIOVASCULAR: Regular rate and rhythm. No murmur appreciated. RESPIRATORY: Clear to auscultation. Breath sounds equal bilaterally. GASTROINTESTINAL: Abdomen soft, non-tender, nondistended. MUSCULOSKELETAL: No obvious deformities. NEUROLOGICAL: Awake and alert. No obvious cranial nerve deficits. Moving all extremities. PSYCHIATRIC: Appropriate mood and affect; insight and judgment normal. Data Data Last Documented VS Vital Signs Date Time Temp Pulse Resp B/P (MAP) Pulse Ox O2 Delivery O2 Flow Rate FiO2 12/13/17 16:00 68 18 128/71 (90) 98 Room Air 12/13/17 14:09 98.8 Orders Orders Complete Blood Count With Diff (12/13/17 14:12) Comprehensive Metabolic Panel (12/13/17 14:12) Retic Count (12/13/17 14:12) Hydromorphone Pf Inj (Dilaudid Pf Inj) (12/13/17 15:30) Sodium Chlor 0.9% 1000 Ml Inj (Ns 1000 M (12/13/17 15:30) Labs Laboratory Tests Test 12/13/17 15:00 White Blood Count 6.5 TH/MM3 Red Blood Count 4.48 MIL/MM3 Hemoglobin 13.2 GM/DL Hematocrit 36.6 % Mean Corpuscular Volume 81.7 FL Mean Corpuscular Hemoglobin 29.4 PG Mean Corpuscular Hemoglobin Concent 36.0 % Red Cell Distribution Width 17.2 % Platelet Count 244 TH/MM3 Mean Platelet Volume 7.3 FL Neutrophils (%) (Auto) 43.7 % Lymphocytes (%) (Auto) 37.1 % Monocytes (%) (Auto) 11.9 % Eosinophils (%) (Auto) 6.6 % Basophils (%) (Auto) 0.7 % Neutrophils # (Auto) 2.8 TH/MM3 Lymphocytes # (Auto) 2.4 TH/MM3 Monocytes # (Auto) 0.8 TH/MM3 Eosinophils # (Auto) 0.4 TH/MM3 Basophils # (Auto) 0.0 TH/MM3 CBC Comment AUTO DIFF Differential Comment AUTO DIFF CONFIRMED Platelet Estimate NORMAL Platelet Morphology Comment NORMAL Basophilic Stippling FAINT Spherocytes 1+ Target Cells 1+ Reticulocyte Count 4.2 % Absolute Reticulocyte Count 186.7 MIL/L Blood Urea Nitrogen 9 MG/DL Creatinine 1.02 MG/DL Random Glucose 93 MG/DL Total Protein 7.8 GM/DL Albumin 4.2 GM/DL Calcium Level 8.6 MG/DL Alkaline Phosphatase 92 U/L Aspartate Amino Transf (AST/SGOT) 20 U/L Alanine Aminotransferase (ALT/SGPT) 16 U/L Total Bilirubin 1.4 MG/DL Sodium Level 142 MEQ/L Potassium Level 4.2 MEQ/L Chloride Level 111 MEQ/L Carbon Dioxide Level 23.6 MEQ/L Anion Gap 7 MEQ/L Estimat Glomerular Filtration Rate 105 ML/MIN [facility] Medical Decision Making Medical Screen Exam Complete: Yes Emergency Medical Condition: Yes Interpretation(s) Reticulocyte count is elevated Electrolytes are reassuring Total bilirubin is 1.4 Differential Diagnosis Vaso-occlusive crisis, hemoglobin SC disease, acute chest syndrome Narrative Course This is a 27-year-old male who has a history of hemoglobin SC disease who presents to the emergency department with pain all over his body. He says he is having difficulty getting into a grinder gear. Records demonstrate that he has been following exclusively in emergency departments obtaining his opiates. He was treated here for pain crisis. I don't think he would benefit from long- term outpatient opiate therapy. I gave him 10 Lortabs but asked him to follow with [facility] for further management. Patient will be discharged home. Diagnosis Primary Impression: Hemoglobin SC disease Qualified Codes: D57.219 - Sickle-cell/Hb-C disease with crisis, unspecified Additional Impression: Vaso-occlusive sickle cell crisis Referrals: [facility] Patient Instructions: General Instructions Additional Instructions: If you develop severe chest pain, shortness of breath, sweating, lightheadedness , dizziness or difficulty breathing return to the emergency department immediately. Followup with your primary care physician in 2-3 days if your symptoms are not resolved. Med/Other Pt SpecificInfo: Prescription(s) given Scripts Hydrocodone-Acetaminophen ([place]) 5 Mg-325 Mg Tab 1 TAB PO Q6H Y for PAIN, #10 TAB 0 Refills Prov: Renée Mock MD 12/13/17 Disposition: 01 DISCHARGE HOME Condition: Stable Renée Mock MD Dec 13, 2017 16:41
== END 2017-12-13 17:32 | disposition home or self-care (01) ==
LOC: NEPD 14:08
DX: D57.219 Sickle-cell/Hb-C disease with crisis, unspecified (principal); J45.909 Unspecified asthma, uncomplicated; F17.210 Nicotine dependence, cigarettes, uncomplicated
CPT/HCPCS: 80053; 85025; 85044; 96374; 99284; J1170; J7030

== ENCOUNTER 2018-01-02 19:50 | Emergency (ER) | payer MEDICAID ==
[2018-01-02 19:52] VITALS: BP 101/60; PULSE 65; RESP 16; TEMP 98.4; O2SAT 100
--- NOTE | 2018-01-02 20:49 | RADRPT ---
EXAM DATE/TIME: 01/02/2018 20:13 [place] COMPARISON: No previous studies available for comparison. INDICATIONS : Upper left chest pain that started today. MEDICAL HISTORY : Sickle Cell disease. SURGICAL HISTORY : None. ENCOUNTER: Initial ACUITY: 1 day PAIN SCORE: 10/10 LOCATION: Bilateral chest FINDINGS: PA and lateral views of the chest demonstrate the lungs to be symmetrically aerated without evidence of mass, infiltrate or effusion. The cardiomediastinal contours are unremarkable. Osseous structure s are intact. CONCLUSION: No acute disease. Jai Zhang MD on January 02, 2018 at 20:45 Board Certified Radiologist. This report was verified electronically.
[2018-01-02 21:17] LABS: AUTOMATED NEUTROPHIL # 5.1 TH/MM3 (1.8-7.7); BASOPHIL # 0.1 TH/MM3 (0-0.2); BASOPHIL % 0.9 % (0.0-2.0); EOSINOPHIL # 0.3 TH/MM3 (0-0.4); EOSINOPHIL % 3.6 % (0.0-4.0); HEMATOCRIT 35.8 % (39.0-51.0); HEMOGLOBIN 12.8 GM/DL (13.0-17.0); LYMPHOCYTE # 3.1 TH/MM3 (1.0-4.8); MEAN CELL VOLUME 81.4 FL (80.0-100.0); MEAN CORPUSCULAR HGB CONC 35.7 % (32.0-36.0); MEAN PLATELET VOLUME 7.3 FL (7.0-11.0); MONO % 10.4 % (0.0-8.0); NEUT % 53.1 % (16.0-70.0); PLATELET COUNT 288 TH/MM3 (150-450); RED CELL DISTRIBUTION WIDTH 17.3 % (11.6-17.2); RETIC % 4.1 % (0.4-3.0); WHITE BLOOD COUNT 9.6 TH/MM3 (4.0-11.0)
[2018-01-02] MEDS ORDERED: PROMETHAZINE INJ 25 MG/ML VIAL IM ONE (21:30)
[2018-01-02] MEDS ORDERED: MORPHINE SULFATE 8 MG/ML INJ IM ONE (21:30)
[2018-01-02 21:36] LABS: BICARBONATE 28.9 MEQ/L (21.0-32.0); CALCIUM 8.7 MG/DL (8.5-10.1); CREATININE 1.17 MG/DL (0.60-1.30)
[2018-01-02] MEDS ORDERED: NORC5TAB PO (22:18)
--- NOTE | 2018-01-02 22:26 | PD ---
HPI Chief Complaint: Sickle Cell Time Seen by Provider: 21:19 Travel History International Travel<30 days: No Contact w/Intl Traveler<30days: No Traveled to known affect area: No History of Present Illness HPI 27-year-old black male with a history of sickle cell disease presents to emergency department stating that he is having pain all over. He states that over last several days with recent weather changes he is had diffuse myalgias and arthralgias. She states that this is typical of his sickle cell disease. He was seen in the ER just a few week or so ago. He was treated and discharged and was given a prescription of Lortab. He has not followed up with anyone as of yet. He states that he typically just comes back to the ER. He does not have a local physician. He denies any documented fever chills. No cough, congestion. No chest pain or shortness of breath. No nausea vomiting. Symptoms are moderate. It alleviated by opiates. Exacerbated by weather changes and noncompliance PFSH Past Medical History Hx Anticoagulant Therapy: No Asthma: Yes Autoimmune Disease: Yes Blood Disorders: Yes (SICKLE CELL) Cardiovascular Problems: No Chemotherapy: No Cerebrovascular Accident: No Diabetes: No Diminished Hearing: No Gastrointestinal Disorders: No Genitourinary: No Musculoskeletal: No Neurologic: No Reproductive: No Respiratory: No Immunizations Current: Yes Sickle Cell Disease: Yes Past Surgical History Other Surgery: Yes (R+ Knee) Social History Alcohol Use: No Tobacco Use: Yes (3 OR 4 cigarettes/day ) Substance Use: No (DENIES) Allergies-Medications (Allergen,Severity, Reaction): Coded Allergies: No Known Allergies (Verified Adverse Reaction, Unknown, 01/02/18) Reported Meds & Prescriptions Reported Meds & Active Scripts Active [place] (Hydrocodone-Acetaminophen) 5 Mg-325 Mg Tab 1 Tab PO Q6H PRN Review of Systems Except as stated in HPI: all other systems reviewed are Neg Physical Exam Narrative GENERAL: Well-developed, well-nourished in no apparent distress. Nontoxic appearing. The patient is resting comfortable in the examination room. He does not appear to be in any discomfort. He is watching TV attentively. During the interview the patient continues to watch TV until it is shut off to get his attention for the history and exam. HEAD: Normocephalic, atraumatic. EYES: Pupils equal round and reactive. Extraocular motions intact. No scleral icterus. No injection or drainage. ENT: Nose clear. Throat without erythema, tonsillar hypertrophy or exudate. Uvula midline. Airway patent. NECK: Trachea midline. Supple, nontender, moves head freely. No central bony tenderness or spasm. CARDIOVASCULAR: Regular rate and rhythm without murmurs, gallops, or rubs. RESPIRATORY: Clear to auscultation. Breath sounds equal bilaterally. No wheezes , rales, or rhonchi. GASTROINTESTINAL: Abdomen soft, non-tender, nondistended. No hepato-splenomegaly , or palpable masses. No guarding. EXTREMITIES: No clubbing, cyanosis, or edema. No joint tenderness. BACK: Nontender without deformity. No flank tenderness. NEUROLOGICAL: Awake, alert and oriented x 3 .Cranial nerves grossly intact. Motor and sensory grossly within normal limits. Normal speech. Data Data Last Documented VS Vital Signs Date Time Temp Pulse Resp B/P (MAP) Pulse Ox O2 Delivery O2 Flow Rate FiO2 01/02/18 19:52 98.4 65 16 101/60 (74) 100 Orders Orders Complete Blood Count With Diff (01/02/18 20:07) Basic Metabolic Panel (Bmp) (01/02/18 20:07) Retic Count (01/02/18 20:07) Chest, Pa & Lat (01/02/18 ) Oxygen Administration (01/02/18 21:24) Oral Rehydration (01/02/18 21:24) Promethazine Inj (Phenergan Inj) (01/02/18 21:30) Morphine Inj (Morphine Inj) (01/02/18 21:30) Labs Laboratory Tests Test 01/02/18 20:23 White Blood Count 9.6 TH/MM3 Red Blood Count 4.40 MIL/MM3 Hemoglobin 12.8 GM/DL Hematocrit 35.8 % Mean Corpuscular Volume 81.4 FL Mean Corpuscular Hemoglobin 29.0 PG Mean Corpuscular Hemoglobin Concent 35.7 % Red Cell Distribution Width 17.3 % Platelet Count 288 TH/MM3 Mean Platelet Volume 7.3 FL Neutrophils (%) (Auto) 53.1 % Lymphocytes (%) (Auto) 32.0 % Monocytes (%) (Auto) 10.4 % Eosinophils (%) (Auto) 3.6 % Basophils (%) (Auto) 0.9 % Neutrophils # (Auto) 5.1 TH/MM3 Lymphocytes # (Auto) 3.1 TH/MM3 Monocytes # (Auto) 1.0 TH/MM3 Eosinophils # (Auto) 0.3 TH/MM3 Basophils # (Auto) 0.1 TH/MM3 CBC Comment DIFF FINAL Differential Comment Reticulocyte Count 4.1 % Absolute Reticulocyte Count 179.0 MIL/L Blood Urea Nitrogen 10 MG/DL Creatinine 1.17 MG/DL Random Glucose 65 MG/DL Calcium Level 8.7 MG/DL Sodium Level 139 MEQ/L Potassium Level 4.0 MEQ/L Chloride Level 106 MEQ/L Carbon Dioxide Level 28.9 MEQ/L Anion Gap 4 MEQ/L Estimat Glomerular Filtration Rate 89 ML/MIN [facility] Medical Decision Making Medical Screen Exam Complete: Yes Emergency Medical Condition: Yes Medical Record Reviewed: Yes Interpretation(s) Laboratory Tests Test 01/02/18 20:23 White Blood Count 9.6 TH/MM3 Red Blood Count 4.40 MIL/MM3 Hemoglobin 12.8 GM/DL Hematocrit 35.8 % Mean Corpuscular Volume 81.4 FL Mean Corpuscular Hemoglobin 29.0 PG Mean Corpuscular Hemoglobin Concent 35.7 % Red Cell Distribution Width 17.3 % Platelet Count 288 TH/MM3 Mean Platelet Volume 7.3 FL Neutrophils (%) (Auto) 53.1 % Lymphocytes (%) (Auto) 32.0 % Monocytes (%) (Auto) 10.4 % Eosinophils (%) (Auto) 3.6 % Basophils (%) (Auto) 0.9 % Neutrophils # (Auto) 5.1 TH/MM3 Lymphocytes # (Auto) 3.1 TH/MM3 Monocytes # (Auto) 1.0 TH/MM3 Eosinophils # (Auto) 0.3 TH/MM3 Basophils # (Auto) 0.1 TH/MM3 CBC Comment DIFF FINAL Differential Comment Reticulocyte Count 4.1 % Absolute Reticulocyte Count 179.0 MIL/L Blood Urea Nitrogen 10 MG/DL Creatinine 1.17 MG/DL Random Glucose 65 MG/DL Calcium Level 8.7 MG/DL Sodium Level 139 MEQ/L Potassium Level 4.0 MEQ/L Chloride Level 106 MEQ/L Carbon Dioxide Level 28.9 MEQ/L Anion Gap 4 MEQ/L Estimat Glomerular Filtration Rate 89 ML/MIN Differential Diagnosis Differential diagnoses: Pain crisis, sickle cell disease, dehydration, opiate abuse, malingering Narrative Course Patient is placed on nasal oxygen at 6 L. He is given 2 containers of Gatorade. Patient was also given morphine 8 mg IM and Phenergan 25 mg IM. The patient is reexamined. He states that his pain is improved. The patient has been counseled on getting a primary care doctor as well as a nutrition associate. He will be given the [place] [facility] as well as hematology. Patient will be given only a limited quantity of Lortab once again. We will refill 10 tablets. This is a sickle cell pain Diagnosis Primary Impression: Sickle-cell disease with pain Referrals: Reese Hatfield MD 1 week [facility] 2 days Patient Instructions: Narcotic given in the ED, General Instructions Additional Instructions: Rest. Force fluids. Medications as directed. Follow-up with the [facility] Follow-up with Dr. HATFIELD the nutrition associate. Call your office in the morning. Med/Other Pt SpecificInfo: Prescription(s) given Scripts Hydrocodone-Acetaminophen ([place]) 5 Mg-325 Mg Tab 1 TAB PO Q6H Y for PAIN, #10 TAB 0 Refills Prov: Raymundo Rankin MD 01/02/18 Disposition: 01 DISCHARGE HOME Condition: Stable Jai Young Jan 02, 2018 22:26
== END 2018-01-02 23:50 | disposition home or self-care (01) ==
LOC: NEPD 19:50
DX: D57.1 Sickle-cell disease without crisis (principal); J45.909 Unspecified asthma, uncomplicated; F17.210 Nicotine dependence, cigarettes, uncomplicated; Z91.19 Patient's noncompliance with other medical treatment and regimen
CPT/HCPCS: 71046; 80048; 85025; 85044; 96372; 99284; J2270; J2550

== ENCOUNTER 2018-01-12 14:50 | Emergency (ER) | payer MEDICAID ==
[~2018-01-12] VITALS: Ht 170.2 cm; Wt 63.5 kg
[2018-01-12 14:51] VITALS: BP 123/75; PULSE 64; RESP 16; TEMP 98.4; O2SAT 99
[2018-01-12] MEDS ORDERED: PROCHLORPERAZINE INJ 10 MG/2 ML VIAL IV PUSH ONE (18:00)
[2018-01-12] MEDS ORDERED: SODIUM CHLOR 0.9% 1000 ML INJ 1,000 ML IV ONE (18:00)
[2018-01-12] MEDS ORDERED: diphenhydrAMINE HCL 50 MG/ML VIAL IV PUSH ONE (18:00)
[2018-01-12] MEDS ORDERED: MORPHINE SULFATE 8 MG/ML INJ IV PUSH ONE (18:00)
[2018-01-12 18:25] LABS: AUTOMATED NEUTROPHIL # 3.1 TH/MM3 (1.8-7.7); BASOPHIL # 0.1 TH/MM3 (0-0.2); BASOPHIL % 1.2 % (0.0-2.0); EOSINOPHIL # 0.3 TH/MM3 (0-0.4); EOSINOPHIL % 3.9 % (0.0-4.0); HEMATOCRIT 37.4 % (39.0-51.0); HEMOGLOBIN 13.7 GM/DL (13.0-17.0); LYMPH % 40.6 % (9.0-44.0); LYMPHOCYTE # 2.8 TH/MM3 (1.0-4.8); MEAN CORPUSCULAR HEMOGLOBIN 29.7 PG (27.0-34.0); MEAN PLATELET VOLUME 7.3 FL (7.0-11.0); MONO % 9.2 % (0.0-8.0); MONOCYTE # 0.6 TH/MM3 (0-0.9); NEUT % 45.1 % (16.0-70.0); PLATELET COUNT 290 TH/MM3 (150-450); RED BLOOD COUNT 4.62 MIL/MM3 (4.50-5.90); RED CELL DISTRIBUTION WIDTH 16.9 % (11.6-17.2); RETIC # 143.9 MIL/L (20.0-150.0); RETIC % 3.1 % (0.4-3.0); WHITE BLOOD COUNT 6.8 TH/MM3 (4.0-11.0)
[2018-01-12 18:28] LABS: MEAN CORPUSCULAR HGB CONC 36.7 % (32.0-36.0)
--- NOTE | 2018-01-12 19:02 | PD ---
HPI Chief Complaint: Sickle Cell Time Seen by Provider: 17:46 Travel History International Travel<30 days: No Contact w/Intl Traveler<30days: No Traveled to known affect area: No History of Present Illness HPI This is a 27-year-old male with history of sickle cell disease, presents today with complaints of bilateral arm pain and leg pain. Patient denies any fevers, chills. Patient denies any pulmonary symptoms. He denies any dysuria urgency or frequency. Patient was here on the for similar findings. Patient reports that this morning when he woke up his right arm was numb and tingly. He states it has gotten better over the past several hours. He reports that now he just has the pain that he normally has in his arms and legs. There are no other complaints at time of my examination. PFSH Past Medical History Hx Anticoagulant Therapy: No Asthma: Yes Autoimmune Disease: Yes Blood Disorders: Yes (SICKLE CELL) Cardiovascular Problems: No Chemotherapy: No Cerebrovascular Accident: No Diabetes: No Diminished Hearing: No Gastrointestinal Disorders: No Genitourinary: No Musculoskeletal: No Neurologic: No Reproductive: No Respiratory: No Immunizations Current: Yes Sickle Cell Disease: Yes Tetanus Vaccination: < 5 Years Past Surgical History Other Surgery: Yes (R+ Knee) Social History Alcohol Use: No Tobacco Use: No Substance Use: No (DENIES) Allergies-Medications (Allergen,Severity, Reaction): Coded Allergies: No Known Allergies (Verified Adverse Reaction, Unknown, 01/12/18) Reported Meds & Prescriptions Reported Meds & Active Scripts Active No Active Prescriptions or Reported Medications Review of Systems Except as stated in HPI: all other systems reviewed are Neg General / Constitutional: No: Fever, Chills HENT: No: Headaches, Lightheadedness Cardiovascular: No: Chest Pain or Discomfort, Palpitations Respiratory: No: Cough, Shortness of Breath Gastrointestinal: No: Nausea, Vomiting, Abdominal Pain Genitourinary: No: Frequency, Dysuria Musculoskeletal: Positive: Pain, No: Weakness (Bilateral arm and leg pain), Edema Skin: No Rash, No Lesions Neurologic: No: Weakness, Dizziness, Headache, Change in Mentation Physical Exam Narrative GENERAL: Well-developed well-nourished male no acute respiratory distress. SKIN: Focused skin assessment warm/dry. HEAD: Atraumatic. Normocephalic. EYES: Pupils equal and round. No scleral icterus. No injection or drainage. ENT: No nasal bleeding or discharge. Mucous membranes pink and moist. NECK: Trachea midline. Supple. CARDIOVASCULAR: Regular rate and rhythm. No murmur appreciated. RESPIRATORY: No accessory muscle use. Clear to auscultation. Breath sounds equal bilaterally. GASTROINTESTINAL: Abdomen soft, non-tender, nondistended. Hepatic and splenic margins not palpable. MUSCULOSKELETAL: No obvious deformities. No obvious clubbing. Cap refill is less than 3 seconds on his bilateral hands and feet. NEUROLOGICAL: Awake and alert. No obvious cranial nerve deficits. Motor grossly within normal limits. Normal speech. Data Data Last Documented VS Vital Signs Date Time Temp Pulse Resp B/P (MAP) Pulse Ox O2 Delivery O2 Flow Rate FiO2 01/12/18 17:49 56 18 97 Room Air 01/12/18 14:51 98.4 123/75 (91) Orders Orders Complete Blood Count With Diff (01/12/18 15:05) Retic Count (01/12/18 15:05) Iv Access Insert/Monitor (01/12/18 15:05) Sodium Chlor 0.9% 1000 Ml Inj (Ns 1000 M (01/12/18 18:00) Prochlorperazine Inj (Compazine Inj) (01/12/18 18:00) Diphenhydramine Inj (Benadryl Inj) (01/12/18 18:00) Morphine Inj (Morphine Inj) (01/12/18 18:00) Labs Laboratory Tests Test 01/12/18 18:07 White Blood Count 6.8 TH/MM3 Red Blood Count 4.62 MIL/MM3 Hemoglobin 13.7 GM/DL Hematocrit 37.4 % Mean Corpuscular Volume 81.0 FL Mean Corpuscular Hemoglobin 29.7 PG Mean Corpuscular Hemoglobin Concent 36.7 % Red Cell Distribution Width 16.9 % Platelet Count 290 TH/MM3 Mean Platelet Volume 7.3 FL Neutrophils (%) (Auto) 45.1 % Lymphocytes (%) (Auto) 40.6 % Monocytes (%) (Auto) 9.2 % Eosinophils (%) (Auto) 3.9 % Basophils (%) (Auto) 1.2 % Neutrophils # (Auto) 3.1 TH/MM3 Lymphocytes # (Auto) 2.8 TH/MM3 Monocytes # (Auto) 0.6 TH/MM3 Eosinophils # (Auto) 0.3 TH/MM3 Basophils # (Auto) 0.1 TH/MM3 CBC Comment AUTO DIFF Reticulocyte Count 3.1 % Absolute Reticulocyte Count 143.9 MIL/L MDM Medical Decision Making Medical Screen Exam Complete: Yes Emergency Medical Condition: Yes Differential Diagnosis Sickle cell disease versus pain crisis versus infection Narrative Course 27-year-old male history of sickle cell disease, well known to this emergency primary, presents today with complaints of pain crisis. Patient is not febrile. There is no pulmonary or urinary symptoms. Labs are pending at this time. He has been given 1 L of IV fluid 50 mg of Benadryl 10 mg of Compazine and 5 mg of morphine. He will be signed out to Dr. Garza, physician replaced me at change of shift. Disposition will be per him. I anticipate he will likely be able to go home. Diagnosis Primary Impression: Sickle-cell disease with pain Scripts No Active Prescriptions or Reported Meds Adrián Thompson MD Jan 12, 2018 19:02
[2018-01-12 19:26] LABS: OVALOCYTES 1+ (NORMAL); SICKLE CELLS 1+ (NORMAL); TARGET CELLS 1+ (NORMAL); TEARDROP RBCS 1+ (NORMAL)
--- NOTE | 2018-01-12 19:30 | PD ---
Physical Exam Date Seen by Provider: Jan 12, 2018 Time Seen by Provider: 19:30 Narrative pt 13 /37 H and H and retic count of 3.1 no lab indication he is in crisis chest x-ray to rule out acute Chest and discharged home follow up wit his outpt pain management plan , xray negative no infiltrate no infarct Data Data Last Documented VS Orders Orders Complete Blood Count With Diff (01/12/18 15:05) Retic Count (01/12/18 15:05) Iv Access Insert/Monitor (01/12/18 15:05) Sodium Chlor 0.9% 1000 Ml Inj (Ns 1000 M (01/12/18 18:00) Prochlorperazine Inj (Compazine Inj) (01/12/18 18:00) Diphenhydramine Inj (Benadryl Inj) (01/12/18 18:00) Morphine Inj (Morphine Inj) (01/12/18 18:00) Chest, Pa & Lat (01/12/18 ) Ed Discharge Order (01/12/18 23:37) Labs Laboratory Tests Test 01/12/18 18:07 White Blood Count 6.8 TH/MM3 Red Blood Count 4.62 MIL/MM3 Hemoglobin 13.7 GM/DL Hematocrit 37.4 % Mean Corpuscular Volume 81.0 FL Mean Corpuscular Hemoglobin 29.7 PG Mean Corpuscular Hemoglobin Concent 36.7 % Red Cell Distribution Width 16.9 % Platelet Count 290 TH/MM3 Mean Platelet Volume 7.3 FL Neutrophils (%) (Auto) 45.1 % Lymphocytes (%) (Auto) 40.6 % Monocytes (%) (Auto) 9.2 % Eosinophils (%) (Auto) 3.9 % Basophils (%) (Auto) 1.2 % Neutrophils # (Auto) 3.1 TH/MM3 Lymphocytes # (Auto) 2.8 TH/MM3 Monocytes # (Auto) 0.6 TH/MM3 Eosinophils # (Auto) 0.3 TH/MM3 Basophils # (Auto) 0.1 TH/MM3 CBC Comment AUTO DIFF Differential Comment AUTO DIFF CONFIRMED Platelet Estimate NORMAL Platelet Morphology Comment NORMAL Sickle Cells 1+ Target Cells 1+ Tear Drop Cells 1+ Ovalocytes 1+ Reticulocyte Count 3.1 % Absolute Reticulocyte Count 143.9 MIL/L MDM Supervised Visit with BONNY: No Diagnosis Primary Impression: Sickle-cell disease with pain Patient Instructions: General Instructions, Sickle Cell Disease (GEN) Scripts No Active Prescriptions or Reported Meds Disposition: 01 DISCHARGE HOME Condition: Arcadio Delacruz MD Jan 12, 2018 19:30
--- NOTE | 2018-01-12 20:23 | RADRPT ---
EXAM DATE/TIME: 01/12/2018 20:08 [facility] COMPARISON: CHEST PA & LAT, January 02, 2018, 20:13. INDICATIONS : Patient complains of chest pain. MEDICAL HISTORY : Sickle Cell disease. SURGICAL HISTORY : None. ENCOUNTER: Initial ACUITY: 1 day PAIN SCORE: 10/10 LOCATION: chest FINDINGS: PA and lateral views of the chest demonstrate the lungs to be symmetrically aerated without evidence of mass, infiltrate or effusion. The cardiomediastinal contours are unremarkable. Osseous structure s are intact. CONCLUSION: 1. No acute cardiopulmonary disease. Kj Salazar MD on January 12, 2018 at 20:21 Board Certified Radiologist. This report was verified electronically.
== END 2018-01-12 23:48 | disposition home or self-care (01) ==
LOC: NEPE 14:50
DX: D57.1 Sickle-cell disease without crisis (principal); J45.909 Unspecified asthma, uncomplicated
CPT/HCPCS: 71046; 85025; 85044; 96374; 96375; 99284; J0780; J1200; J2270; J7030

== ENCOUNTER 2018-01-31 19:08 | Emergency (ER) | payer MEDICAID ==
[~2018-01-31] VITALS: Ht 170.2 cm; Wt 62.0 kg
[2018-01-31 20:57] VITALS: BP 110/55; PULSE 66; RESP 18; TEMP 98.4; O2SAT 99
[2018-01-31] MEDS ORDERED: SODIUM CHLOR 0.9% 1000 ML INJ 1,000 ML IV ONE (22:05)
--- NOTE | 2018-01-31 22:08 | PD ---
HPI Chief Complaint: Sickle Cell Time Seen by Provider: 22:04 Travel History International Travel<30 days: No Contact w/Intl Traveler<30days: No Traveled to known affect area: No History of Present Illness HPI 27-year-old male with history of sickle cell anemia, here for evaluation of a vaso-occlusive crisis. The patient reports that his pain started today while at work. He describes pain all over that is severe, sharp, feels like his usual sickle cell crisis. No chest pain or dyspnea. No fevers or cough. He does not have a extrusion die corrector, but states that he has an appointment with one in 1 month. He does not know the name of this extrusion die corrector. PFSH Past Medical History Hx Anticoagulant Therapy: No Asthma: Yes Autoimmune Disease: Yes Blood Disorders: Yes (SICKLE CELL) Cardiovascular Problems: No Chemotherapy: No Cerebrovascular Accident: No Diabetes: No Diminished Hearing: No Gastrointestinal Disorders: No Genitourinary: No Musculoskeletal: No Neurologic: No Reproductive: No Respiratory: No Immunizations Current: Yes Sickle Cell Disease: Yes Past Surgical History Other Surgery: Yes (R+ Knee) Social History Alcohol Use: No Tobacco Use: Yes (1/2 PPD) Substance Use: No (DENIES) Allergies-Medications (Allergen,Severity, Reaction): Coded Allergies: No Known Allergies (Verified Adverse Reaction, Unknown, 01/31/18) Reported Meds & Prescriptions Reported Meds & Active Scripts Active No Active Prescriptions or Reported Medications Review of Systems Except as stated in HPI: all other systems reviewed are Neg Physical Exam Narrative GENERAL: Well-developed, well-nourished, no apparent distress. SKIN: Focused skin assessment warm/dry. No rash. No warmth erythema. HEAD: Atraumatic. Normocephalic. EYES: Pupils equal and round. No scleral icterus. No injection or drainage. ENT: No nasal bleeding or discharge. Mucous membranes pink and moist. NECK: Trachea midline. No JVD. CARDIOVASCULAR: Regular rate and rhythm. No murmur appreciated. RESPIRATORY: No accessory muscle use. Clear to auscultation. Breath sounds equal bilaterally. GASTROINTESTINAL: Abdomen soft, non-tender, nondistended. MUSCULOSKELETAL: No obvious deformities. No clubbing. No cyanosis. No edema. No dactylitis. NEUROLOGICAL: Awake and alert. No obvious cranial nerve deficits. Motor grossly within normal limits. Normal speech. PSYCHIATRIC: Appropriate mood and affect; insight and judgment normal. Data Data Last Documented VS Vital Signs Date Time Temp Pulse Resp B/P (MAP) Pulse Ox O2 Delivery O2 Flow Rate FiO2 01/31/18 22:16 99 01/31/18 20:57 98.4 66 18 110/55 (73) Orders Orders Complete Blood Count With Diff (01/31/18 22:05) Comprehensive Metabolic Panel (01/31/18 22:05) Retic Count (01/31/18 22:05) Chest, Single Ap (01/31/18 22:05) Ecg Monitoring (01/31/18 22:05) Iv Access Insert/Monitor (01/31/18 22:05) Oximetry (01/31/18 22:05) Sodium Chloride 0.9% Flush (Ns Flush) (01/31/18 22:15) Sodium Chlor 0.9% 1000 Ml Inj (Ns 1000 M (01/31/18 22:05) Morphine Inj (Morphine Inj) (01/31/18 22:15) Diphenhydramine Inj (Benadryl Inj) (01/31/18 22:15) Labs Laboratory Tests Test 01/31/18 22:10 White Blood Count 8.1 TH/MM3 Red Blood Count 4.77 MIL/MM3 Hemoglobin 13.8 GM/DL Hematocrit 38.7 % Mean Corpuscular Volume 81.1 FL Mean Corpuscular Hemoglobin 28.9 PG Mean Corpuscular Hemoglobin Concent 35.7 % Red Cell Distribution Width 17.4 % Platelet Count 303 TH/MM3 Mean Platelet Volume 7.6 FL Neutrophils (%) (Auto) 47.1 % Lymphocytes (%) (Auto) 40.5 % Monocytes (%) (Auto) 8.0 % Eosinophils (%) (Auto) 3.1 % Basophils (%) (Auto) 1.3 % Neutrophils # (Auto) 3.8 TH/MM3 Lymphocytes # (Auto) 3.3 TH/MM3 Monocytes # (Auto) 0.6 TH/MM3 Eosinophils # (Auto) 0.3 TH/MM3 Basophils # (Auto) 0.1 TH/MM3 CBC Comment DIFF FINAL Differential Comment Reticulocyte Count 3.9 % Absolute Reticulocyte Count 187.1 MIL/L Blood Urea Nitrogen 10 MG/DL Creatinine 1.12 MG/DL Random Glucose 90 MG/DL Total Protein 8.3 GM/DL Albumin 4.2 GM/DL Calcium Level 9.1 MG/DL Alkaline Phosphatase 97 U/L Aspartate Amino Transf (AST/SGOT) 33 U/L Alanine Aminotransferase (ALT/SGPT) 23 U/L Total Bilirubin 1.6 MG/DL Sodium Level 137 MEQ/L Potassium Level 4.2 MEQ/L Chloride Level 103 MEQ/L Carbon Dioxide Level 26.0 MEQ/L Anion Gap 8 MEQ/L Estimat Glomerular Filtration Rate 94 ML/MIN [facility] Medical Decision Making Medical Screen Exam Complete: Yes Emergency Medical Condition: Yes Medical Record Reviewed: Yes Differential Diagnosis Vaso-occlusive crisis, acute chest syndrome, anemia Narrative Course Vital signs are within normal limits. CBC: WBC 8.1, hemoglobin 13.8, hematocrit 38.7, platelets 303. CMP is unremarkable. Reticulocyte count is 3.9%. Chest x-ray shows no evidence of acute cardiopulmonary disease. AVN of the humeral heads. Patient was provided IV hydration and pain medication and on reassessment he is watching TV comfortably. He reports feeling improved. He states he is going to establish with a new extrusion die corrector next month. He is stable for discharge home with outpatient follow-up. He was advised on when to return to the emergency department. He verbalizes understanding and agreement with plan. Diagnosis Primary Impression: Sickle-cell disease with pain Referrals: Primary Care Physician 3 days Additional Instructions: Follow-up with a extrusion die corrector this week. Follow-up with a primary care physician this week. Return to the emergency department for worsening symptoms or any other concerns. Scripts No Active Prescriptions or Reported Meds Disposition: 01 DISCHARGE HOME Condition: Stable Raymundo Rankin MD Jan 31, 2018 22:08
[2018-01-31] MEDS ORDERED: diphenhydrAMINE HCL 50 MG/ML VIAL IV PUSH ONE (22:15)
[2018-01-31] MEDS ORDERED: MORPHINE SULFATE 2 MG/ML INJ IV PUSH ONE (22:15)
[2018-01-31] MEDS ORDERED: SODIUM CHLORIDE 0.9% FLUSH 10 ML FLUSH IVF PRN (22:15)
[2018-01-31 22:16] VITALS: O2SAT 99
--- NOTE | 2018-01-31 22:25 | RADRPT ---
EXAM DATE/TIME: 01/31/2018 22:11 [facility] COMPARISON: CHEST PA & LAT, January 12, 2018, 20:08. INDICATIONS : Short of breath. MEDICAL HISTORY : Sickle cell anemia. SURGICAL HISTORY : None. ENCOUNTER: Initial ACUITY: 1 day PAIN SCORE: 0/10 LOCATION: Bilateral chest FINDINGS: A single view of the chest demonstrates the lungs to be symmetrically aerated without evidence of mas s, infiltrate or effusion. The cardiomediastinal contours are unremarkable. No acute bony abnormality demonstrated. 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 No perceptible flattening/collapse or other morphology changes. CONCLUSION: No evidence of acute cardiopulmonary disease. AVN of the humeral heads. Elpidio Mar MD on January 31, 2018 at 22:22 Board Certified Radiologist. This report was verified electronically.
[2018-01-31 22:31] LABS: AUTOMATED NEUTROPHIL # 3.8 TH/MM3 (1.8-7.7); BASOPHIL # 0.1 TH/MM3 (0-0.2); BASOPHIL % 1.3 % (0.0-2.0); EOSINOPHIL # 0.3 TH/MM3 (0-0.4); EOSINOPHIL % 3.1 % (0.0-4.0); HEMATOCRIT 38.7 % (39.0-51.0); HEMOGLOBIN 13.8 GM/DL (13.0-17.0); LYMPH % 40.5 % (9.0-44.0); LYMPHOCYTE # 3.3 TH/MM3 (1.0-4.8); MEAN CELL VOLUME 81.1 FL (80.0-100.0); MEAN CORPUSCULAR HEMOGLOBIN 28.9 PG (27.0-34.0); MEAN CORPUSCULAR HGB CONC 35.7 % (32.0-36.0); MEAN PLATELET VOLUME 7.6 FL (7.0-11.0); MONOCYTE # 0.6 TH/MM3 (0-0.9); NEUT % 47.1 % (16.0-70.0); PLATELET COUNT 303 TH/MM3 (150-450); RED BLOOD COUNT 4.77 MIL/MM3 (4.50-5.90); RED CELL DISTRIBUTION WIDTH 17.4 % (11.6-17.2); RETIC # 187.1 MIL/L (20.0-150.0); RETIC % 3.9 % (0.4-3.0); WHITE BLOOD COUNT 8.1 TH/MM3 (4.0-11.0)
[2018-01-31 22:46] LABS: ALT (GPT) 23 U/L (12-78)
[2018-01-31 22:48] LABS: ALKALINE PHOSPHATASE 97 U/L (45-117); TOTAL BILIRUBIN ADULT 1.6 MG/DL (0.2-1.0); TOTAL PROTEIN 8.3 GM/DL (6.4-8.2)
[2018-01-31 22:53] LABS: ALBUMIN 4.2 GM/DL (3.4-5.0); AST (GOT) 33 U/L (15-37); BLOOD UREA NITROGEN 10 MG/DL (7-18); CALCIUM 9.1 MG/DL (8.5-10.1); CHLORIDE 103 MEQ/L (98-107); CREATININE 1.12 MG/DL (0.60-1.30); GLOMERULAR FILTRATION RATE 94 ML/MIN (>89); GLUCOSE,RANDOM 90 MG/DL (74-106); SODIUM (NA) 137 MEQ/L (136-145)
== END 2018-01-31 23:39 | disposition home or self-care (01) ==
LOC: NEPD 19:08
DX: D57.00 Hb-SS disease with crisis, unspecified (principal); J45.909 Unspecified asthma, uncomplicated; F17.210 Nicotine dependence, cigarettes, uncomplicated
CPT/HCPCS: 71045; 80053; 85025; 85044; 96374; 96375; 99284; J1200; J2270; J7030

== ENCOUNTER 2018-03-01 16:22 | Emergency (ER) | payer MEDICAID ==
[~2018-03-01] VITALS: Ht 170.2 cm; Wt 63.0 kg
[2018-03-01 16:57] VITALS: BP 104/53; PULSE 71; RESP 16; TEMP 98.1; O2SAT 98
== END 2018-03-01 20:33 | disposition left against medical advice (07) ==
LOC: NED 16:22
DX: D57.00 Hb-SS disease with crisis, unspecified (principal)
CPT/HCPCS: 99281

== ENCOUNTER 2018-03-05 18:23 | Emergency (ER) | payer MEDICAID ==
[2018-03-05 18:49] VITALS: BP 114/59; PULSE 63; RESP 18; TEMP 98.1; O2SAT 100
--- NOTE | 2018-03-05 19:50 | RADRPT ---
EXAM DATE/TIME: 03/05/2018 19:01 [facility] COMPARISON: CHEST PA & LAT, January 12, 2018, 20:08. INDICATIONS : Right sided chest pain with shortness of breath. MEDICAL HISTORY : Sickle Cell disease. Smoker. SURGICAL HISTORY : None. ENCOUNTER: Initial ACUITY: 2 days PAIN SCORE: 5/10 LOCATION: Bilateral chest FINDINGS: PA and lateral views of the chest demonstrate the lungs to be symmetrically aerated without evidence of mass, infiltrate or effusion. The cardiomediastinal contours are unremarkable. Osseous structure s are intact. CONCLUSION: No acute disease. Elpidio Castro MD on March 05, 2018 at 19:47 Board Certified Radiologist. This report was verified electronically.
[2018-03-05] MEDS ORDERED: diphenhydrAMINE HCL 50 MG/ML VIAL IV PUSH ONE (21:15)
[2018-03-05] MEDS ORDERED: SODIUM CHLOR 0.9% 1000 ML INJ 1,000 ML IV ONE ×3 (21:15→22:45)
[2018-03-05] MEDS ORDERED: MORPHINE SULFATE 4 MG/ML INJ IV PUSH ONE (21:15)
[2018-03-05] MEDS ORDERED: KETOROLAC TROMETHAMINE 30 MG/ML (IVP) VIAL IV PUSH ONE (21:15)
[2018-03-05 21:52] LABS: AUTOMATED NEUTROPHIL # 3.8 TH/MM3 (1.8-7.7); BASOPHIL # 0.1 TH/MM3 (0-0.2); BASOPHIL % 1.2 % (0.0-2.0); EOSINOPHIL # 0.4 TH/MM3 (0-0.4); EOSINOPHIL % 4.8 % (0.0-4.0); HEMATOCRIT 37.3 % (39.0-51.0); HEMOGLOBIN 13.1 GM/DL (13.0-17.0); LYMPH % 41.5 % (9.0-44.0); LYMPHOCYTE # 3.7 TH/MM3 (1.0-4.8); MEAN CELL VOLUME 82.9 FL (80.0-100.0); MEAN CORPUSCULAR HEMOGLOBIN 29.1 PG (27.0-34.0); MEAN PLATELET VOLUME 7.6 FL (7.0-11.0); MONO % 9.6 % (0.0-8.0); MONOCYTE # 0.9 TH/MM3 (0-0.9); NEUT % 42.9 % (16.0-70.0); PLATELET COUNT 277 TH/MM3 (150-450); RED BLOOD COUNT 4.49 MIL/MM3 (4.50-5.90); RETIC # 185.2 MIL/L (20.0-150.0); RETIC % 4.1 % (0.4-3.0)
[2018-03-05 21:58] LABS: ALBUMIN 3.7 GM/DL (3.4-5.0); AST (GOT) 18 U/L (15-37); BICARBONATE 25.9 MEQ/L (21.0-32.0); BLOOD UREA NITROGEN 9 MG/DL (7-18); CALCIUM 8.6 MG/DL (8.5-10.1); CHLORIDE 109 MEQ/L (98-107); CREATININE 1.13 MG/DL (0.60-1.30); GLOMERULAR FILTRATION RATE 93 ML/MIN (>89); GLUCOSE,RANDOM 86 MG/DL (74-106); SODIUM (NA) 140 MEQ/L (136-145)
[2018-03-05 22:02] LABS: ALKALINE PHOSPHATASE 100 U/L (45-117); ALT (GPT) 18 U/L (12-78); TOTAL BILIRUBIN ADULT 1.2 MG/DL (0.2-1.0); TOTAL PROTEIN 7.6 GM/DL (6.4-8.2)
[2018-03-05] MEDS ORDERED: HYDROmorphone HCL PF 2 MG/ML VIAL IV PUSH ONE (22:45)
[2018-03-05] MEDS ORDERED: NORC5TAB PO (23:18)
--- NOTE | 2018-03-05 23:19 | PD ---
HPI . Sickle cell crisis Chief Complaint: Sickle Cell Time Seen by Provider: 20:57 Travel History International Travel<30 days: No Contact w/Intl Traveler<30days: No History of Present Illness HPI Patient presents with a chief complaint of sickle cell crisis. Onset was several days ago. He states that he hurts all over. He states that he has not tried any [id number] medication for his symptoms because they do not work for him. Pain is severe and has no modifying factors. He denies any other complaints such as shortness of breath, cough, chest pain, vomiting, diarrhea, urinary tract symptoms. He reports that he has not been under the care of a automatic vulcanizing operator since he was a teenager. He does not take any of the usual medications for sickle cell patient such as folic acid. PFSH Past Medical History Hx Anticoagulant Therapy: No Asthma: Yes Autoimmune Disease: Yes Blood Disorders: Yes (SICKLE CELL) Cardiovascular Problems: No Chemotherapy: No Cerebrovascular Accident: No Diabetes: No Diminished Hearing: No Gastrointestinal Disorders: No Genitourinary: No Musculoskeletal: No Neurologic: No Reproductive: No Respiratory: No Immunizations Current: Yes Sickle Cell Disease: Yes Past Surgical History Other Surgery: Yes (R+ Knee) Social History Alcohol Use: No Tobacco Use: Yes (1/2 PPD) Substance Use: No (DENIES) Allergies-Medications (Allergen,Severity, Reaction): Coded Allergies: No Known Allergies (Verified Adverse Reaction, Unknown, 03/05/18) Reported Meds & Prescriptions Reported Meds & Active Scripts Active No Active Prescriptions or Reported Medications Review of Systems Except as stated in HPI: all other systems reviewed are Neg Physical Exam Narrative GENERAL: Awake and alert. SKIN: warm/dry. HEAD: Normocephalic. Atraumatic. EYES: Pupils equal and round. No scleral icterus. No injection or drainage. ENT: No nasal bleeding or discharge. Mucous membranes pink and moist. NECK: Trachea midline. Full range of motion without pain.. CARDIOVASCULAR: Regular rate and rhythm. Heart sounds are normal. RESPIRATORY: No accessory muscle use. Clear to auscultation. Breath sounds equal bilaterally. GASTROINTESTINAL: Abdomen soft. Nontender. Bowel sounds present. Nondistended. MUSCULOSKELETAL: No obvious deformities. NEUROLOGICAL: Awake and alert. No obvious cranial nerve deficits. Motor grossly within normal limits. Normal speech. PSYCHIATRIC: Appropriate mood and affect; insight and judgment normal. Data Data Last Documented VS Vital Signs Date Time Temp Pulse Resp B/P (MAP) Pulse Ox O2 Delivery O2 Flow Rate FiO2 03/05/18 18:49 98.1 63 18 114/59 (77) 100 Orders Orders Complete Blood Count With Diff (03/05/18 18:51) Comprehensive Metabolic Panel (03/05/18 18:51) Retic Count (03/05/18 18:51) Chest, Pa & Lat (03/05/18 18:51) Sodium Chlor 0.9% 1000 Ml Inj (Ns 1000 M (03/05/18 21:15) Sodium Chlor 0.9% 1000 Ml Inj (Ns 1000 M (03/05/18 21:15) Ketorolac Inj (Toradol Inj) (03/05/18 21:15) Morphine Inj (Morphine Inj) (03/05/18 21:15) Diphenhydramine Inj (Benadryl Inj) (03/05/18 21:15) Hydromorphone Pf Inj (Dilaudid Pf Inj) (03/05/18 22:45) Sodium Chlor 0.9% 1000 Ml Inj (Ns 1000 M (03/05/18 22:45) Labs Laboratory Tests Test 03/05/18 21:12 White Blood Count 9.0 TH/MM3 Red Blood Count 4.49 MIL/MM3 Hemoglobin 13.1 GM/DL Hematocrit 37.3 % Mean Corpuscular Volume 82.9 FL Mean Corpuscular Hemoglobin 29.1 PG Mean Corpuscular Hemoglobin Concent 35.0 % Red Cell Distribution Width 17.0 % Platelet Count 277 TH/MM3 Mean Platelet Volume 7.6 FL Neutrophils (%) (Auto) 42.9 % Lymphocytes (%) (Auto) 41.5 % Monocytes (%) (Auto) 9.6 % Eosinophils (%) (Auto) 4.8 % Basophils (%) (Auto) 1.2 % Neutrophils # (Auto) 3.8 TH/MM3 Lymphocytes # (Auto) 3.7 TH/MM3 Monocytes # (Auto) 0.9 TH/MM3 Eosinophils # (Auto) 0.4 TH/MM3 Basophils # (Auto) 0.1 TH/MM3 CBC Comment DIFF FINAL Differential Comment Reticulocyte Count 4.1 % Absolute Reticulocyte Count 185.2 MIL/L Blood Urea Nitrogen 9 MG/DL Creatinine 1.13 MG/DL Random Glucose 86 MG/DL Total Protein 7.6 GM/DL Albumin 3.7 GM/DL Calcium Level 8.6 MG/DL Alkaline Phosphatase 100 U/L Aspartate Amino Transf (AST/SGOT) 18 U/L Alanine Aminotransferase (ALT/SGPT) 18 U/L Total Bilirubin 1.2 MG/DL Sodium Level 140 MEQ/L Potassium Level 4.2 MEQ/L Chloride Level 109 MEQ/L Carbon Dioxide Level 25.9 MEQ/L Anion Gap 5 MEQ/L Estimat Glomerular Filtration Rate 93 ML/MIN MDM Medical Decision Making Medical Screen Exam Complete: Yes Emergency Medical Condition: Yes Medical Record Reviewed: Yes (Patient is seen here regularly for sickle cell crisis. His hemoglobin is usually in the 12-14 range. I perused his records and he has had a positive screen for sickle cell anemia.) Differential Diagnosis My differential diagnosis of sickle cell disease includes but is not limited to vaso-occlusive crisis, acute chest syndrome, occult infection, electrolyte disturbance, drug-seeking behavior. Narrative Course This patient presents complaining with sickle cell crisis. Routine sickle cell labs have been ordered. IV access has been obtained. Toradol was ordered but he declined stating that it does not work for him. Morphine and Benadryl were then ordered. On recheck, he reports a little bit of improvement with the morphine. I have subsequently ordered Dilaudid. He is also receiving IV fluids. CBC & BMP Diagram 03/05/18 21:12 Total Protein 7.6, Albumin 3.7, Calcium Level 8.6, Alkaline Phosphatase 100, Aspartate Amino Transf (AST/SGOT) 18, Alanine Aminotransferase (ALT/SGPT) 18, Total Bilirubin 1.2 H Absolute reticulocyte count is 185.2 Diagnosis Primary Impression: Sickle cell pain crisis Patient Instructions: General Instructions, Sickle Cell Crisis (DC) Med/Other Pt SpecificInfo: Prescription(s) given Scripts Hydrocodone-Acetaminophen ([place]) 5 Mg-325 Mg Tab 1 TAB PO Q4H Y for PAIN, #12 TAB 0 Refills Prov: Ileana Haro MD 03/05/18 Disposition: 01 DISCHARGE HOME Condition: Stable Ileana Haro MD Mar 05, 2018 23:19
== END 2018-03-05 23:31 | disposition home or self-care (01) ==
LOC: NEPE 18:23
DX: D57.00 Hb-SS disease with crisis, unspecified (principal); J45.909 Unspecified asthma, uncomplicated; Z72.0 Tobacco use
CPT/HCPCS: 71046; 80053; 85025; 85044; 96361; 96374; 96375; 99284; J1170; J1200; J2270; J7030

== ENCOUNTER 2018-03-15 19:18 | Emergency (ER) | payer MEDICAID ==
[~2018-03-15] VITALS: Ht 170.2 cm; Wt 63.5 kg
[2018-03-15 19:44] VITALS: BP 109/59; PULSE 70; RESP 14; TEMP 98.4; O2SAT 100
[2018-03-15] MEDS ORDERED: diphenhydrAMINE HCL 50 MG/ML VIAL IV PUSH ONE (20:00)
[2018-03-15] MEDS ORDERED: SODIUM CHLORIDE 0.9% FLUSH 10 ML FLUSH IV FLUSH PRN (20:00)
[2018-03-15] MEDS ORDERED: SODIUM CHLOR 0.9% 1000 ML INJ 1,000 ML IV ONE (20:00)
[2018-03-15] MEDS ORDERED: MORPHINE SULFATE 4 MG/ML INJ IV PUSH ONE (20:00)
--- NOTE | 2018-03-15 20:08 | PD ---
HPI Chief Complaint: Sickle Cell Time Seen by Provider: 19:51 Travel History International Travel<30 days: No Contact w/Intl Traveler<30days: No Traveled to known affect area: No History of Present Illness HPI 27-year-old male with history of sickle cell anemia presents the ED for evaluation of vaso-occlusive crisis. Patient endorses stabbing, throbbing pain in his whole body. He denies headache, dizziness, chest pain, shortness of breath, abdominal pain, nausea, vomiting. He states he has an upcoming appointment with a biosecurity officer. No treatment attempted at home. PFSH Past Medical History Hx Anticoagulant Therapy: No Asthma: Yes Autoimmune Disease: Yes Blood Disorders: Yes (SICKLE CELL) Cardiovascular Problems: No Chemotherapy: No Cerebrovascular Accident: No Diabetes: No Diminished Hearing: No Gastrointestinal Disorders: No Genitourinary: No Musculoskeletal: No Neurologic: No Reproductive: No Respiratory: No Immunizations Current: Yes Sickle Cell Disease: Yes Tetanus Vaccination: < 5 Years Influenza Vaccination: Yes Past Surgical History Other Surgery: Yes (R+ Knee) Social History Alcohol Use: No Tobacco Use: Yes (1/2 PPD) Substance Use: No (DENIES) Allergies-Medications (Allergen,Severity, Reaction): Coded Allergies: No Known Allergies (Verified Adverse Reaction, Unknown, 03/05/18) Reported Meds & Prescriptions Reported Meds & Active Scripts Active [place] (Hydrocodone-Acetaminophen) 5 Mg-325 Mg Tab 1 Tab PO Q4H PRN Review of Systems Except as stated in HPI: all other systems reviewed are Neg Physical Exam Narrative GENERAL: Well-nourished, well-developed -[place] male in no acute distress. SKIN: Focused skin assessment warm/dry. HEAD: Normocephalic. EYES: No scleral icterus. No injection or drainage. NECK: Supple, trachea midline. No JVD or lymphadenopathy. CARDIOVASCULAR: Regular rate and rhythm without murmurs, gallops, or rubs. RESPIRATORY: Breath sounds equal bilaterally. No accessory muscle use. GASTROINTESTINAL: Abdomen soft, non-tender, nondistended. Splenomegaly noted. Active bowel sounds. MUSCULOSKELETAL: No cyanosis, or edema. BACK: Nontender without obvious deformity. No CVA tenderness. Data Data Last Documented VS Vital Signs Date Time Temp Pulse Resp B/P (MAP) Pulse Ox O2 Delivery O2 Flow Rate FiO2 03/15/18 22:41 03/15/18 22:00 67 16 98 Room Air 03/15/18 19:44 98.4 Orders Orders Complete Blood Count With Diff (03/15/18 19:54) Comprehensive Metabolic Panel (03/15/18 19:54) Iv Access Insert/Monitor (03/15/18 19:54) Ecg Monitoring (03/15/18 19:54) Oximetry (03/15/18 19:54) Sodium Chloride 0.9% Flush (Ns Flush) (03/15/18 20:00) Retic Count (03/15/18 19:54) Chest, Single Ap (03/15/18 ) Morphine Inj (Morphine Inj) (03/15/18 20:00) Diphenhydramine Inj (Benadryl Inj) (03/15/18 20:00) Sodium Chlor 0.9% 1000 Ml Inj (Ns 1000 M (03/15/18 20:00) Morphine Inj (Morphine Inj) (03/15/18 22:00) Ed Discharge Order (03/15/18 22:51) Labs Laboratory Tests Test 03/15/18 20:05 White Blood Count 9.2 TH/MM3 Red Blood Count 4.63 MIL/MM3 Hemoglobin 13.7 GM/DL Hematocrit 38.7 % Mean Corpuscular Volume 83.7 FL Mean Corpuscular Hemoglobin 29.7 PG Mean Corpuscular Hemoglobin Concent 35.4 % Red Cell Distribution Width 16.8 % Platelet Count 270 TH/MM3 Mean Platelet Volume 8.3 FL Neutrophils (%) (Auto) 48.0 % Lymphocytes (%) (Auto) 33.7 % Monocytes (%) (Auto) 12.9 % Eosinophils (%) (Auto) 3.9 % Basophils (%) (Auto) 1.5 % Neutrophils # (Auto) 4.4 TH/MM3 Lymphocytes # (Auto) 3.1 TH/MM3 Monocytes # (Auto) 1.2 TH/MM3 Eosinophils # (Auto) 0.4 TH/MM3 Basophils # (Auto) 0.1 TH/MM3 CBC Comment AUTO DIFF Differential Total Cells Counted 100 Neutrophils % (Manual) 55 % Lymphocytes % 27 % Monocytes % 12 % Eosinophils % 6 % Neutrophils # (Manual) 5.1 TH/MM3 Differential Comment FINAL DIFF MANUAL Platelet Estimate NORMAL Platelet Morphology Comment NORMAL Spherocytes 1+ Target Cells 2+ Ovalocytes 1+ Reticulocyte Count 4.8 % Absolute Reticulocyte Count 218.8 MIL/L Blood Urea Nitrogen 10 MG/DL Creatinine 0.92 MG/DL Random Glucose 87 MG/DL Total Protein 8.3 GM/DL Albumin 4.0 GM/DL Calcium Level 9.1 MG/DL Alkaline Phosphatase 107 U/L Aspartate Amino Transf (AST/SGOT) 47 U/L Alanine Aminotransferase (ALT/SGPT) 53 U/L Total Bilirubin 1.5 MG/DL Sodium Level 139 MEQ/L Potassium Level 4.6 MEQ/L Chloride Level 105 MEQ/L Carbon Dioxide Level 27.7 MEQ/L Anion Gap 6 MEQ/L Estimat Glomerular Filtration Rate 118 ML/MIN [facility] Medical Decision Making Medical Screen Exam Complete: Yes Emergency Medical Condition: Yes Differential Diagnosis Vaso-occlusive crisis versus reticulocytosis versus dehydration versus malingering versus other Narrative Course 27-year-old male with history of sickle cell anemia presents the ED for evaluation of vaso-occlusive crisis. Patient endorses stabbing, throbbing pain in his whole body. He denies headache, dizziness, chest pain, shortness of breath, nausea, vomiting. He states he has an upcoming appointment with a biosecurity officer. Patient is afebrile, pulse 70, O2 sats 100% on room air on presentation. Physical exam is reassuring. IV was established. Patient was administered 1 L normal saline, 4 mg morphine, 50 mg Benadryl IV. CBC: WBC 9.2. Hemoglobin 13.7. Hematocrit 38.7. Retic count 4.8. CMP: Mild elevation of the bilirubin, otherwise unremarkable. On recheck patient reports improvement of his symptoms. He was administered an additional additional 2 mg of morphine IV. On recheck the patient is sleeping. He is instructed to stay hydrated, follow with the biosecurity officer/oncologist as planned. He is stable and discharged home. Diagnosis Primary Impression: Reticulocytosis Additional Impression: Sickle-cell disease with pain Referrals: Primary Care Physician Additional Instructions: Rest, hydrate. Return to normal, gentle activities as tolerated. Follow-up with the brim presser as discussed. Return to the ED for any urgent or emergent medical condition. Disposition: 01 DISCHARGE HOME Condition: Stable Julia Mercado Mar 15, 2018 20:08
--- NOTE | 2018-03-15 20:12 | RADRPT ---
EXAM DATE/TIME: 03/15/2018 20:02 [facility] COMPARISON: CHEST PA & LAT, March 05, 2018, 19:01. CHEST SINGLE AP, January 31, 2018, 22:11. INDICATIONS : Chest pain. MEDICAL HISTORY : Sickle Cell disease. SURGICAL HISTORY : None. ENCOUNTER: Initial ACUITY: 1 day PAIN SCORE: 5/10 LOCATION: Bilateral chest FINDINGS: Trace infiltrates in right base. No pleural effusions seen. No pneumothorax. Heart size stable, within normal limits. 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 No morphology changes are seen. CONCLUSION: Early and/or mild right base pneumonia. Elpidio Mar MD on March 15, 2018 at 20:09 Board Certified Radiologist. This report was verified electronically.
[2018-03-15 20:33] VITALS: O2SAT 99
[2018-03-15 20:34] VITALS: BP 118/75; PULSE 77; RESP 16; O2SAT 99
[2018-03-15 20:44] LABS: AUTOMATED NEUTROPHIL # 4.4 TH/MM3 (1.8-7.7); BASOPHIL # 0.1 TH/MM3 (0-0.2); BASOPHIL % 1.5 % (0.0-2.0); EOSINOPHIL # 0.4 TH/MM3 (0-0.4); EOSINOPHIL % 3.9 % (0.0-4.0); HEMATOCRIT 38.7 % (39.0-51.0); HEMOGLOBIN 13.7 GM/DL (13.0-17.0); LYMPH % 33.7 % (9.0-44.0); LYMPHOCYTE # 3.1 TH/MM3 (1.0-4.8); MEAN CELL VOLUME 83.7 FL (80.0-100.0); MEAN CORPUSCULAR HEMOGLOBIN 29.7 PG (27.0-34.0); MEAN CORPUSCULAR HGB CONC 35.4 % (32.0-36.0); MEAN PLATELET VOLUME 8.3 FL (7.0-11.0); MONO % 12.9 % (0.0-8.0); MONOCYTE # 1.2 TH/MM3 (0-0.9); PLATELET COUNT 270 TH/MM3 (150-450); RED BLOOD COUNT 4.63 MIL/MM3 (4.50-5.90); RED CELL DISTRIBUTION WIDTH 16.8 % (11.6-17.2); WHITE BLOOD COUNT 9.2 TH/MM3 (4.0-11.0)
[2018-03-15 20:52] LABS: AST (GOT) 47 U/L (15-37); BICARBONATE 27.7 MEQ/L (21.0-32.0); BLOOD UREA NITROGEN 10 MG/DL (7-18); CALCIUM 9.1 MG/DL (8.5-10.1); CHLORIDE 105 MEQ/L (98-107); CREATININE 0.92 MG/DL (0.60-1.30); GLOMERULAR FILTRATION RATE 118 ML/MIN (>89); GLUCOSE,RANDOM 87 MG/DL (74-106); SODIUM (NA) 139 MEQ/L (136-145)
[2018-03-15 20:56] LABS: ALKALINE PHOSPHATASE 107 U/L (45-117); ALT (GPT) 53 U/L (12-78); TOTAL BILIRUBIN ADULT 1.5 MG/DL (0.2-1.0); TOTAL PROTEIN 8.3 GM/DL (6.4-8.2)
[2018-03-15 21:15] LABS: LYMPHOCYTES 27 % (9-44); MONOCYTES 12 % (0-8); NEUTROPHIL # MANUAL DIFF 5.1 TH/MM3 (1.8-7.7); POLYS (SEG NEUTROPHILS) 55 % (16-70)
[2018-03-15 21:16] LABS: OVALOCYTES 1+ (NORMAL); SPHEROCYTES 1+ (NORMAL); TARGET CELLS 2+ (NORMAL)
[2018-03-15 21:51] LABS: RETIC # 218.8 MIL/L (20.0-150.0); RETIC % 4.8 % (0.4-3.0)
[2018-03-15 22:00] VITALS: BP 114/57; PULSE 67; RESP 16; O2SAT 98
[2018-03-15] MEDS ORDERED: MORPHINE SULFATE 2 MG/ML SYRINGE IV PUSH ONE (22:00)
== END 2018-03-15 22:53 | disposition home or self-care (01) ==
LOC: NEPE 19:18
DX: R70.1 Abnormal plasma viscosity (principal); D57.00 Hb-SS disease with crisis, unspecified; J45.909 Unspecified asthma, uncomplicated; F17.200 Nicotine dependence, unspecified, uncomplicated
CPT/HCPCS: 71045; 80053; 85007; 85027; 85044; 96361; 96374; 96375; 99284; J1200; J2270; J7030

== ENCOUNTER 2018-04-09 18:39 | Emergency (ER) | payer MEDICAID ==
[~2018-04-09] VITALS: Ht 170.2 cm; Wt 61.4 kg
[2018-04-09 19:05] VITALS: BP 115/68; PULSE 68; RESP 19; TEMP 98.8; O2SAT 99
--- NOTE | 2018-04-09 19:56 | PD ---
HPI Chief Complaint: Sickle Cell Time Seen by Provider: 19:41 Travel History International Travel<30 days: No Contact w/Intl Traveler<30days: No Traveled to known affect area: No History of Present Illness HPI 27-year-old black male presents emergency department stating that he is having sickle cell pain. He states that he has sickle cell trait. He feels that he is having a pain crisis. 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 He feels pain all over. He denies any fever chills. No shortness of breath or wheezing. No abdominal pain. No urine symptoms. He does not take any medications for his sickle cell disease. He did not take any abortive medicine prior to coming in. Patient does not have a creative services producer. He states that he had just got a primary care doctor in [place] and was seen for the first time last week. Patient states that the pain is moderate to severe. No alleviating factors. Exacerbated by exerting himself today. PFSH Past Medical History Hx Anticoagulant Therapy: No Asthma: Yes Autoimmune Disease: Yes Blood Disorders: Yes (SICKLE CELL) Cardiovascular Problems: No Chemotherapy: No Cerebrovascular Accident: No Diabetes: No Diminished Hearing: No Gastrointestinal Disorders: No Genitourinary: No Musculoskeletal: No Neurologic: No Reproductive: No Respiratory: No Immunizations Current: Yes Sickle Cell Disease: Yes Tetanus Vaccination: < 5 Years Influenza Vaccination: Yes Past Surgical History Other Surgery: Yes (R+ Knee) Social History Alcohol Use: No Tobacco Use: Yes (1/2 PPD) Substance Use: No (DENIES) Allergies-Medications (Allergen,Severity, Reaction): Coded Allergies: No Known Allergies (Verified Adverse Reaction, Unknown, 04/09/18) Reported Meds & Prescriptions Reported Meds & Active Scripts Active [place] (Hydrocodone-Acetaminophen) 5 Mg-325 Mg Tab 1 Tab PO Q6H PRN Review of Systems General / Constitutional: No: Fever Eyes: No: Visual changes HENT: No: Headaches Cardiovascular: No: Chest Pain or Discomfort, Palpitations Respiratory: No: Cough, Shortness of Breath, Wheezing Gastrointestinal: No: Abdominal Pain Genitourinary: No: Dysuria Musculoskeletal: Positive: Myalgias, Arthralgias, Pain Skin: No Rash Neurologic: No: Weakness Psychiatric: No: Depression Endocrine: No: Polydipsia Hematologic/Lymphatic: No: Easy Bruising Physical Exam Narrative GENERAL: Well-developed, well-nourished in no apparent distress. Nontoxic appearing. The patient is resting comfortable in examination room. His complaint of pain is disproportionate to his demeanor. He has not tachycardic or diaphoretic. He is not writhing in pain. HEAD: Normocephalic, atraumatic. EYES: Pupils equal round and reactive. Extraocular motions intact. No scleral icterus. No injection or drainage. ENT: Nose clear. Throat without erythema, tonsillar hypertrophy or exudate. Uvula midline. Airway patent. NECK: Trachea midline. Supple, nontender, moves head freely. No central bony tenderness or spasm. CARDIOVASCULAR: Regular rate and rhythm without murmurs, gallops, or rubs. RESPIRATORY: Clear to auscultation. Breath sounds equal bilaterally. No wheezes , rales, or rhonchi. GASTROINTESTINAL: Abdomen soft, non-tender, nondistended. No hepato-splenomegaly , or palpable masses. No guarding. EXTREMITIES: No clubbing, cyanosis, or edema. No joint tenderness. BACK: Nontender without deformity. No flank tenderness. NEUROLOGICAL: Awake, alert and oriented x 3 .Cranial nerves grossly intact. Motor and sensory grossly within normal limits. Normal speech. Data Data Last Documented VS Vital Signs Date Time Temp Pulse Resp B/P (MAP) Pulse Ox O2 Delivery O2 Flow Rate FiO2 04/09/18 20:21 18 98 Room Air 04/09/18 19:05 98.8 68 115/68 (84) Orders Orders Complete Blood Count With Diff (04/09/18 19:48) Comprehensive Metabolic Panel (04/09/18 19:48) Urinalysis - C+S If Indicated (04/09/18 19:48) Sodium Chlor 0.9% 1000 Ml Inj (Ns 1000 M (04/09/18 20:00) Retic Count (04/09/18 19:48) Chest, Single Ap (04/09/18 19:48) Ecg Monitoring (04/09/18 19:48) Iv Access Insert/Monitor (04/09/18 19:48) Oximetry (04/09/18 19:48) Sodium Chloride 0.9% Flush (Ns Flush) (04/09/18 20:00) Morphine Inj (Morphine Inj) (04/09/18 20:00) Promethazine Inj (Phenergan Inj) (04/09/18 20:00) Acetamin-Hydrocod 325-5 Mg ([place] 5-325 (04/09/18 22:30) Ed Discharge Order (04/09/18 22:48) Labs Laboratory Tests Test 04/09/18 20:25 04/09/18 21:35 White Blood Count 8.1 TH/MM3 Red Blood Count 4.35 MIL/MM3 Hemoglobin 12.9 GM/DL Hematocrit 36.2 % Mean Corpuscular Volume 83.2 FL Mean Corpuscular Hemoglobin 29.6 PG Mean Corpuscular Hemoglobin Concent 35.7 % Red Cell Distribution Width 16.9 % Platelet Count 248 TH/MM3 Mean Platelet Volume 7.6 FL Neutrophils (%) (Auto) 45.8 % Lymphocytes (%) (Auto) 39.4 % Monocytes (%) (Auto) 10.7 % Eosinophils (%) (Auto) 3.5 % Basophils (%) (Auto) 0.6 % Neutrophils # (Auto) 3.7 TH/MM3 Lymphocytes # (Auto) 3.2 TH/MM3 Monocytes # (Auto) 0.9 TH/MM3 Eosinophils # (Auto) 0.3 TH/MM3 Basophils # (Auto) 0.0 TH/MM3 CBC Comment DIFF FINAL Differential Comment Reticulocyte Count 4.0 % Absolute Reticulocyte Count 174.0 MIL/L Blood Urea Nitrogen 14 MG/DL Creatinine 1.27 MG/DL Random Glucose 77 MG/DL Total Protein 8.0 GM/DL Albumin 4.0 GM/DL Calcium Level 9.2 MG/DL Alkaline Phosphatase 116 U/L Aspartate Amino Transf (AST/SGOT) 19 U/L Alanine Aminotransferase (ALT/SGPT) 23 U/L Total Bilirubin 1.2 MG/DL Sodium Level 141 MEQ/L Potassium Level 4.6 MEQ/L Chloride Level 105 MEQ/L Carbon Dioxide Level 30.7 MEQ/L Anion Gap 5 MEQ/L Estimat Glomerular Filtration Rate 81 ML/MIN Urine Color YELLOW Urine Turbidity CLEAR Urine pH 7.0 Urine Specific [place] 1.002 Urine Protein NEG mg/dL Urine Glucose (UA) NEG mg/dL Urine Ketones NEG mg/dL Urine Occult Blood NEG Urine Nitrite NEG Urine Bilirubin NEG Urine Urobilinogen 0.2 MG/DL Urine Leukocyte Esterase NEG Urine WBC 1 /hpf Urine Mucus FEW /lpf Microscopic Urinalysis Comment CULT NOT INDICATED [facility] Medical Decision Making Medical Screen Exam Complete: Yes Emergency Medical Condition: Yes Medical Record Reviewed: Yes Interpretation(s) Laboratory Tests Test 04/09/18 20:25 04/09/18 21:35 White Blood Count 8.1 TH/MM3 Red Blood Count 4.35 MIL/MM3 Hemoglobin 12.9 GM/DL Hematocrit 36.2 % Mean Corpuscular Volume 83.2 FL Mean Corpuscular Hemoglobin 29.6 PG Mean Corpuscular Hemoglobin Concent 35.7 % Red Cell Distribution Width 16.9 % Platelet Count 248 TH/MM3 Mean Platelet Volume 7.6 FL Neutrophils (%) (Auto) 45.8 % Lymphocytes (%) (Auto) 39.4 % Monocytes (%) (Auto) 10.7 % Eosinophils (%) (Auto) 3.5 % Basophils (%) (Auto) 0.6 % Neutrophils # (Auto) 3.7 TH/MM3 Lymphocytes # (Auto) 3.2 TH/MM3 Monocytes # (Auto) 0.9 TH/MM3 Eosinophils # (Auto) 0.3 TH/MM3 Basophils # (Auto) 0.0 TH/MM3 CBC Comment DIFF FINAL Differential Comment Reticulocyte Count 4.0 % Absolute Reticulocyte Count 174.0 MIL/L Blood Urea Nitrogen 14 MG/DL Creatinine 1.27 MG/DL Random Glucose 77 MG/DL Total Protein 8.0 GM/DL Albumin 4.0 GM/DL Calcium Level 9.2 MG/DL Alkaline Phosphatase 116 U/L Aspartate Amino Transf (AST/SGOT) 19 U/L Alanine Aminotransferase (ALT/SGPT) 23 U/L Total Bilirubin 1.2 MG/DL Sodium Level 141 MEQ/L Potassium Level 4.6 MEQ/L Chloride Level 105 MEQ/L Carbon Dioxide Level 30.7 MEQ/L Anion Gap 5 MEQ/L Estimat Glomerular Filtration Rate 81 ML/MIN Urine Color YELLOW Urine Turbidity CLEAR Urine pH 7.0 Urine Specific [place] 1.002 Urine Protein NEG mg/dL Urine Glucose (UA) NEG mg/dL Urine Ketones NEG mg/dL Urine Occult Blood NEG Urine Nitrite NEG Urine Bilirubin NEG Urine Urobilinogen 0.2 MG/DL Urine Leukocyte Esterase NEG Urine WBC 1 /hpf Urine Mucus FEW /lpf Microscopic Urinalysis Comment CULT NOT INDICATED Differential Diagnosis Differential diagnosis: Sickle cell crisis, infection, dehydration, med seeking , malingering Narrative Course Patient is given morphine 8 mg IM and Phenergan 25 mg IM. IV access will be obtained. He will be given 1 L normal saline. Basic laboratory tests including CBC, chemistry, reticulocyte count and chest have been ordered. The patient has had good pain control. He states that laboratory tests have been reviewed. His white count is normal. Chemistry is unremarkable. He was negative. Recheck count still pending. I was notified at 2215 that he had some recurrence of pain. He is given Lortab 5 mg p.o. At 2250 the patient is considered medically stable and is discharged. This is sickle cell pain Diagnosis Primary Impression: Sickle-cell disease with pain Patient Instructions: Narcotic given in the ED, General Instructions Additional Instructions: Rest. Force fluids. [place] Follow-up with your doctor this week for recheck. Follow-up with a creative services producer. Return to the ER for emergencies Med/Other Pt SpecificInfo: Prescription(s) given Scripts Hydrocodone-Acetaminophen ([place]) 5 Mg-325 Mg Tab 1 TAB PO Q6H Y for PAIN, #10 TAB 0 Refills Prov: Raymundo Rankin MD 04/09/18 Disposition: 01 DISCHARGE HOME Condition: Stable Jai Young April 09, 2018 19:56
[2018-04-09] MEDS ORDERED: SODIUM CHLORIDE 0.9% FLUSH 10 ML FLUSH IVF PRN (20:00)
[2018-04-09] MEDS ORDERED: SODIUM CHLOR 0.9% 1000 ML INJ 1,000 ML IV ONE (20:00)
[2018-04-09] MEDS ORDERED: PROMETHAZINE INJ 25 MG/ML VIAL IM ONE (20:00)
[2018-04-09] MEDS ORDERED: MORPHINE SULFATE 8 MG/ML INJ IM ONE (20:00)
--- NOTE | 2018-04-09 20:12 | RADRPT ---
EXAM DATE/TIME: 04/09/2018 19:51 [facility] COMPARISON: CHEST SINGLE AP, March 15, 2018, 20:02. INDICATIONS : Chest Pain. MEDICAL HISTORY : Sickle Cell disease. SURGICAL HISTORY : None. ENCOUNTER: Initial ACUITY: 1 day PAIN SCORE: 7/10 LOCATION: Bilateral chest FINDINGS: A single view of the chest demonstrates the lungs to be symmetrically aerated without evidence of mas s, infiltrate or effusion. The cardiomediastinal contours are unremarkable. Osseous structures are intact. CONCLUSION: No acute disease. Refugio Cosme Jr., MD on April 09, 2018 at 20:09 Board Certified Radiologist. This report was verified electronically.
[2018-04-09 20:21] VITALS: RESP 18; O2SAT 98
[2018-04-09 20:37] LABS: AUTOMATED NEUTROPHIL # 3.7 TH/MM3 (1.8-7.7); BASOPHIL % 0.6 % (0.0-2.0); EOSINOPHIL # 0.3 TH/MM3 (0-0.4); EOSINOPHIL % 3.5 % (0.0-4.0); HEMATOCRIT 36.2 % (39.0-51.0); HEMOGLOBIN 12.9 GM/DL (13.0-17.0); LYMPH % 39.4 % (9.0-44.0); LYMPHOCYTE # 3.2 TH/MM3 (1.0-4.8); MEAN CELL VOLUME 83.2 FL (80.0-100.0); MEAN CORPUSCULAR HEMOGLOBIN 29.6 PG (27.0-34.0); MEAN CORPUSCULAR HGB CONC 35.7 % (32.0-36.0); MEAN PLATELET VOLUME 7.6 FL (7.0-11.0); MONO % 10.7 % (0.0-8.0); MONOCYTE # 0.9 TH/MM3 (0-0.9); NEUT % 45.8 % (16.0-70.0); PLATELET COUNT 248 TH/MM3 (150-450); RED BLOOD COUNT 4.35 MIL/MM3 (4.50-5.90); RED CELL DISTRIBUTION WIDTH 16.9 % (11.6-17.2); WHITE BLOOD COUNT 8.1 TH/MM3 (4.0-11.0)
[2018-04-09 20:58] LABS: AST (GOT) 19 U/L (15-37); BICARBONATE 30.7 MEQ/L (21.0-32.0); BLOOD UREA NITROGEN 14 MG/DL (7-18); CALCIUM 9.2 MG/DL (8.5-10.1); CHLORIDE 105 MEQ/L (98-107); CREATININE 1.27 MG/DL (0.60-1.30); GLOMERULAR FILTRATION RATE 81 ML/MIN (>89); GLUCOSE,RANDOM 77 MG/DL (74-106); SODIUM (NA) 141 MEQ/L (136-145)
[2018-04-09 21:02] LABS: ALKALINE PHOSPHATASE 116 U/L (45-117); ALT (GPT) 23 U/L (12-78); TOTAL BILIRUBIN ADULT 1.2 MG/DL (0.2-1.0)
[2018-04-09 21:59] LABS: BILIRUBIN, URINE NEG (NEG); BLOOD, URINE NEG (NEG); GLUCOSE,URINE NEG (NEG); KETONE, URINE NEG (NEG); NITRITE,URINE NEG (NEG); URINE COLOR YELLOW (YELLW/STRAW); URINE LEUKOCYTE ESTERASE NEG (NEG)
[2018-04-09 22:00] LABS: MUCUS URINE FEW /lpf (OCC)
[2018-04-09] MEDS ORDERED: NORC5TAB PO (22:20)
[2018-04-09] MEDS ORDERED: ACETAMINOPHEN/HYDROcodone 325 MG/5 MG TAB PO ONE (22:30)
== END 2018-04-09 23:02 | disposition home or self-care (01) ==
LOC: NEPD 18:39
DX: D57.00 Hb-SS disease with crisis, unspecified (principal); F17.200 Nicotine dependence, unspecified, uncomplicated
CPT/HCPCS: 71045; 80053; 81001; 85025; 85044; 96360; 96372; 99284; J2270; J2550; J7030

== ENCOUNTER 2018-05-14 21:02 | Emergency (ER) | payer MEDICAID ==
[~2018-05-14] VITALS: Ht 165.1 cm; Wt 72.0 kg
[2018-05-14 21:12] VITALS: BP 133/65; PULSE 70; RESP 16; TEMP 98.5; O2SAT 99
--- NOTE | 2018-05-14 23:05 | RADRPT ---
EXAM DATE: 05/14/2018 10:56 PM EDT AGE/SEX: 27 years / Male INDICATIONS: Fever CLINICAL DATA: This is the patient's initial encounter. Patient reports that signs and symptoms have been present for 1 week and indicates a pain score of 0/10. MEDICAL/SURGICAL HISTORY: Sickle Cell disease. None. COMPARISON: No prior exams available for comparison. FINDINGS: AP and lateral views of the chest demonstrate the lungs to be symmetrically aerated without evidence of mass, infiltrate or effusion. The cardiomediastinal contours are unremarkable. Osseous structure s are intact. CONCLUSION: No acute cardiopulmonary process. Electronically signed by: Elpidio Castro MD 05/14/2018 11:03 PM EDT
[2018-05-14 23:18] LABS: AUTOMATED NEUTROPHIL # 4.1 TH/MM3 (1.8-7.7); BASOPHIL # 0.1 TH/MM3 (0-0.2); BASOPHIL % 1.5 % (0.0-2.0); EOSINOPHIL # 0.4 TH/MM3 (0-0.4); HEMATOCRIT 33.8 % (39.0-51.0); HEMOGLOBIN 12.4 GM/DL (13.0-17.0); LYMPHOCYTE # 4.3 TH/MM3 (1.0-4.8); MEAN CORPUSCULAR HEMOGLOBIN 30.4 PG (27.0-34.0); MEAN PLATELET VOLUME 7.9 FL (7.0-11.0); MONO % 7.4 % (0.0-8.0); MONOCYTE # 0.7 TH/MM3 (0-0.9); NEUT % 42.1 % (16.0-70.0); PLATELET COUNT 313 TH/MM3 (150-450); RED BLOOD COUNT 4.07 MIL/MM3 (4.50-5.90); WHITE BLOOD COUNT 9.6 TH/MM3 (4.0-11.0)
[2018-05-14 23:19] LABS: MEAN CORPUSCULAR HGB CONC 36.7 % (32.0-36.0)
[2018-05-14] MEDS ORDERED: MORPHINE SULFATE 4 MG/ML INJ IV PUSH ONE (23:45)
[2018-05-14 23:49] LABS: ALKALINE PHOSPHATASE 106 U/L (45-117); TOTAL BILIRUBIN ADULT 1.2 MG/DL (0.2-1.0); TOTAL PROTEIN 8.1 GM/DL (6.4-8.2)
--- NOTE | 2018-05-14 23:59 | PD ---
HPI . Generalized body pain Chief Complaint: Sickle Cell Time Seen by Provider: 22:32 Travel History International Travel<30 days: No Contact w/Intl Traveler<30days: No Traveled to known affect area: No History of Present Illness HPI Patient is a 27-year-old male with a history of sickle cell disease he is coming in saying he is having diffuse body pain everywhere. He does not have any specific follow-up Dr. she has no other complaints except generalized body pain he has no shortness of breath he has no cough no fever he has been in our ER multiple times usually his hematocrit hemoglobin is within normal limits and his for her to count is usually 3 or 4 not looking like is in a severe blast crisis. Patient denied is awake alert no fever says he has diffuse abdominal pain there is not local pain he is not having a crisis he said because he still has a spleen and it enlarges why he gets diffuse abdominal pain I explained to him that his blood levels look fine and that there is no crisis indicated by his labs or his presentation chest x-ray is negative oxygen is placed fluid is given and for morphine PFSH Past Medical History Hx Anticoagulant Therapy: No Asthma: Yes Autoimmune Disease: Yes Blood Disorders: Yes (SICKLE CELL) Cardiovascular Problems: No Chemotherapy: No Cerebrovascular Accident: No Diabetes: No Diminished Hearing: No Gastrointestinal Disorders: No Genitourinary: No Musculoskeletal: No Neurologic: No Reproductive: No Respiratory: No Immunizations Current: Yes Sickle Cell Disease: Yes Tetanus Vaccination: < 5 Years Influenza Vaccination: Yes Past Surgical History Other Surgery: Yes (R+ Knee) Social History Alcohol Use: No Tobacco Use: Yes (1/2 PPD) Substance Use: No (DENIES) Allergies-Medications (Allergen,Severity, Reaction): Coded Allergies: No Known Allergies (Verified Adverse Reaction, Unknown, 05/14/18) Reported Meds & Prescriptions Reported Meds & Active Scripts Active Maxatawny (Hydrocodone-Acetaminophen) 5 Mg-325 Mg Tab 1 Tab PO Q6H PRN Review of Systems Except as stated in HPI: all other systems reviewed are Neg Physical Exam Narrative GENERAL: Nontoxic-appearing no scleral jaundice no signs of skin jaundice no signs of severe distress SKIN: Warm and dry. HEAD: Atraumatic. Normocephalic. EYES: Pupils equal and round. No scleral icterus. No injection or drainage. ENT: No nasal bleeding or discharge. Mucous membranes pink and moist. NECK: Trachea midline. No JVD. CARDIOVASCULAR: Regular rate and rhythm. RESPIRATORY: No accessory muscle use. Clear to auscultation. Breath sounds equal bilaterally. GASTROINTESTINAL: Abdomen soft, non-tender, nondistended. Hepatic and splenic margins not palpable. MUSCULOSKELETAL: Extremities without clubbing, cyanosis, or edema. No obvious deformities. NEUROLOGICAL: Awake and alert. No obvious cranial nerve deficits. Motor grossly within normal limits. Five out of 5 muscle strength in the arms and legs. Normal speech. PSYCHIATRIC: Appropriate mood and affect; insight and judgment normal. Data Data Last Documented VS Vital Signs Date Time Temp Pulse Resp B/P (MAP) Pulse Ox O2 Delivery O2 Flow Rate FiO2 05/14/18 23:47 98 Room Air 2.00 05/14/18 21:12 98.5 70 16 133/65 (87) Orders Orders Complete Blood Count With Diff (05/14/18 22:39) Retic Count (05/14/18 22:39) Comprehensive Metabolic Panel (05/14/18 22:39) Chest, Ap & Lat (05/14/18 ) Oxygen Administration (05/14/18 22:39) Blood Culture (05/14/18 22:39) Morphine Inj (Morphine Inj) (05/14/18 23:45) Ed Discharge Order (05/15/18 02:15) Labs Laboratory Tests Test 05/14/18 22:40 White Blood Count 9.6 TH/MM3 Red Blood Count 4.07 MIL/MM3 Hemoglobin 12.4 GM/DL Hematocrit 33.8 % Mean Corpuscular Volume 83.0 FL Mean Corpuscular Hemoglobin 30.4 PG Mean Corpuscular Hemoglobin Concent 36.7 % Red Cell Distribution Width 17.0 % Platelet Count 313 TH/MM3 Mean Platelet Volume 7.9 FL Neutrophils (%) (Auto) 42.1 % Lymphocytes (%) (Auto) 45.0 % Monocytes (%) (Auto) 7.4 % Eosinophils (%) (Auto) 4.0 % Basophils (%) (Auto) 1.5 % Neutrophils # (Auto) 4.1 TH/MM3 Lymphocytes # (Auto) 4.3 TH/MM3 Monocytes # (Auto) 0.7 TH/MM3 Eosinophils # (Auto) 0.4 TH/MM3 Basophils # (Auto) 0.1 TH/MM3 CBC Comment AUTO DIFF Differential Total Cells Counted 100 Neutrophils % (Manual) 37 % Lymphocytes % 41 % Monocytes % 14 % Eosinophils % 6 % Basophils % 1 % Neutrophils # (Manual) 3.6 TH/MM3 Metamyelocytes 1 % Nucleated Red Blood Cells 1 /100 WBC Differential Comment FINAL DIFF MANUAL Platelet Estimate NORMAL Platelet Morphology Comment NORMAL Target Cells 1+ Acanthocytes OCC Reticulocyte Count 4.8 % Absolute Reticulocyte Count 204.1 MIL/L Blood Urea Nitrogen 14 MG/DL Creatinine 1.02 MG/DL Random Glucose 78 MG/DL Total Protein 8.1 GM/DL Albumin 4.1 GM/DL Calcium Level 8.7 MG/DL Alkaline Phosphatase 106 U/L Aspartate Amino Transf (AST/SGOT) 24 U/L Alanine Aminotransferase (ALT/SGPT) 21 U/L Total Bilirubin 1.2 MG/DL Sodium Level 142 MEQ/L Potassium Level 4.5 MEQ/L Chloride Level 108 MEQ/L Carbon Dioxide Level 29.1 MEQ/L Anion Gap 5 MEQ/L Estimat Glomerular Filtration Rate 105 ML/MIN MDM Medical Decision Making Medical Screen Exam Complete: Yes Emergency Medical Condition: Yes Medical Record Reviewed: Yes Differential Diagnosis scd sc crisis , pain NOS malingering acute chest Narrative Course H and H normal retic not significantly elevated Diagnosis Primary Impression: Sickle-cell disease with pain Patient Instructions: General Instructions, Sickle Cell Disease (DC) Disposition: 01 DISCHARGE HOME Condition: Good Arcadio Garza MD May 14, 2018 23:59
[2018-05-15 00:04] LABS: ALBUMIN 4.1 GM/DL (3.4-5.0); ALT (GPT) 21 U/L (12-78); AST (GOT) 24 U/L (15-37); BICARBONATE 29.1 MEQ/L (21.0-32.0); BLOOD UREA NITROGEN 14 MG/DL (7-18); CALCIUM 8.7 MG/DL (8.5-10.1); CHLORIDE 108 MEQ/L (98-107); CREATININE 1.02 MG/DL (0.60-1.30); GLOMERULAR FILTRATION RATE 105 ML/MIN (>89); GLUCOSE,RANDOM 78 MG/DL (74-106); SODIUM (NA) 142 MEQ/L (136-145)
[2018-05-15 00:09] LABS: BASOPHILS 1 % (0-2); CORRECTED NUCLEATED RBC 1 /100 WBC (0-0); LYMPHOCYTES 41 % (9-44); METAMYELOCYTES 1 % (0-1); MONOCYTES 14 % (0-8); NEUTROPHIL # MANUAL DIFF 3.6 TH/MM3 (1.8-7.7); NUCLEATED RED BLOOD CELL 1 (0-0); POLYS (SEG NEUTROPHILS) 37 % (16-70)
[2018-05-15 00:14] LABS: ACANTHOCYTES OCC (NORMAL); TARGET CELLS 1+ (NORMAL)
[2018-05-15 00:24] LABS: RETIC # 204.1 MIL/L (20.0-150.0); RETIC % 4.8 % (0.4-3.0)
== END 2018-05-15 02:20 | disposition home or self-care (01) ==
LOC: NEPE 21:02
DX: D57.00 Hb-SS disease with crisis, unspecified (principal)
CPT/HCPCS: 71046; 80053; 85007; 85027; 85044; 87040; 96374; 99284; J2270

== ENCOUNTER 2018-09-05 06:01 | Inpatient (IN) ==
[2018-09-05] MEDS ORDERED: Morphine Inj 4 MG/ML Vial IV.PUSH ONE ×2 (06:19→07:47)
[2018-09-05] MEDS ORDERED: ceFAZolin 2 GM Premix Inj 2 GM/50 ML PIGGYBACK IV.SIG ONE (06:19)
[2018-09-05] MEDS ORDERED: Diphtheria/Tetanus/Pertussis Vaccine Inj 0.5 ML Syringe IM ONE (06:19)
[2018-09-05] MEDS ORDERED: Sod Chloride 0.9% Inj 1,000 ML IV.CONT SCH (06:30)
[2018-09-05 06:38] LABS: Baso % (Auto) 0.4 % (0.0-2.0); Eos % (Auto) 0.1 % (0.0-4.0); Hematocrit 37.5 % (39.0-51.0); Hemoglobin 13.3 gm/dL (13.0-17.0); Lymph # (Auto) 1.7 th/mm3 (1.0-4.8); Lymph % (Auto) 13.2 % (9.0-44.0); Mean Corpuscular HGB Conc 35.5 % (32.0-36.0); Mean Corpuscular Hemoglobin 29.7 pg (27.0-34.0); Mean Corpuscular Volume 83.7 fL (80.0-100.0); Mean Platelet Volume 7.8 fL (7.0-11.0); Mono # (Auto) 0.5 th/mm3 (0.0-0.9); Mono % (Auto) 3.5 % (0.0-8.0); Neut # (Auto) 10.9 th/mm3 (1.8-7.7); Neut % (Auto) 82.8 % (16.0-70.0); Platelet Count 324 th/mm3 (150-450); Red Blood Count 4.48 mil/mm3 (4.50-5.90); Red Cell Distribution Width 16.9 % (11.6-17.2); White Blood Count 13.1 th/mm3 (4.0-11.0)
--- NOTE | 2018-09-05 06:43 | XR ---
EXAM DATE: 09/05/2018 6:19 AM EDT AGE/SEX: 28 years / Male INDICATIONS: Shortness of breath. CLINICAL DATA: This is the patient's initial encounter. Patient reports that signs and symptoms have been present for 1 day and indicates a pain score of 0/10. MEDICAL/SURGICAL HISTORY: None. None. COMPARISON: No prior exams available for comparison. FINDINGS: A single AP view of the chest demonstrates the lungs to be symmetrically aerated without evidence of mass, infiltrate or effusion. The cardiomediastinal contours are unremarkable. Osseous structures a re intact. CONCLUSION: No acute cardiopulmonary disease. Electronically signed by: Farshad Luciano MD 09/05/2018 6:42 AM EDT
[2018-09-05 06:53] LABS: Calcium 8.9 mg/dL (8.5-10.1); Carbon Dioxide 24.4 meq/L (21.0-32.0); Potassium 4.1 meq/L (3.5-5.1)
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
[2018-09-05 06:59] LABS: Activated Partial Thrombo Time 27.5 sec (24.3-30.1); INR 1.2 Ratio; Prothrombin Time 11.9 sec (9.8-11.6)
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
[2018-09-05] MEDS ORDERED: Acetaminophen 325 MG Tablet PO PRN ×2 (09:20→09:24)
[2018-09-05] MEDS ORDERED: Naloxone Inj 0.4 MG/ML Vial IV.PUSH PRN (09:20)
[2018-09-05] MEDS ORDERED: Bisacodyl 10 MG Supp RECTAL PRN (09:20)
[2018-09-05] MEDS ORDERED: Morphine Sulfate Inj 2 MG/ML Vial IV.PUSH PRN (09:24)
[2018-09-05] MEDS: Sod Chloride 0.9% Inj 1,000 ML IV.CONT SCH (11:07)
[2018-09-05] MEDS: Morphine Inj 4 MG/ML Vial IV.PUSH PRN (11:27)
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
[2018-09-05] MEDS: Senna/Docusate Sodium 8.6/50 MG Tablet PO SCH (22:47)
[2018-09-06] MEDS: Sod Chloride 0.9% Inj 1,000 ML IV.CONT SCH ×2 (01:43→16:16)
[2018-09-06] MEDS: Morphine Inj 4 MG/ML Vial IV.PUSH PRN ×4 (03:07→20:55)
[2018-09-06] MEDS: Folic Acid 1 MG Tablet PO SCH (09:00)
[2018-09-06] MEDS: Senna/Docusate Sodium 8.6/50 MG Tablet PO SCH ×2 (09:01→21:00)
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
[2018-09-07] MEDS: Morphine Inj 4 MG/ML Vial IV.PUSH PRN ×4 (01:33→21:57)
[2018-09-07] MEDS: Sod Chloride 0.9% Inj 1,000 ML IV.CONT SCH ×2 (06:38→18:52)
[2018-09-07] MEDS: Senna/Docusate Sodium 8.6/50 MG Tablet PO SCH ×2 (08:26→20:23)
[2018-09-07] MEDS: Folic Acid 1 MG Tablet PO SCH (08:26)
[2018-09-07] MEDS ORDERED: Metoprolol Tartrate 25 MG Tablet PO ONE (09:09)
[2018-09-07] MEDS ORDERED: Chlorhexidine Gluconate 2% 1 Pack (2 Cloths) TOPICAL ONE (09:09)
[2018-09-07] MEDS ORDERED: Bupivacaine/Epinephrine Inj 0.25% 50 ML Vial ONE (09:49)
[2018-09-07] MEDS ORDERED: Sodium Chlor 0.9% Inj 500 ML IV.SIG SCH (10:00)
[2018-09-07] MEDS ORDERED: Artificial Tears Opth Oint 3.5 GM Tube ONE (10:30)
[2018-09-07] MEDS ORDERED: ceFAZolin 2 GM IV; once IV.SIG ONE (10:30)
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
[2018-09-07] MEDS ORDERED: fentaNYL Citrate Inj 100 MCG/2 ML Ampul ONE (12:44)
[2018-09-08] MEDS: Morphine Inj 4 MG/ML Vial IV.PUSH PRN ×2 (05:19→09:20)
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
[2018-09-08 09:08] VITALS: PULSE 55
[2018-09-08] MEDS: Senna/Docusate Sodium 8.6/50 MG Tablet PO SCH (09:14)
[2018-09-08] MEDS: Folic Acid 1 MG Tablet PO SCH (09:15)
[2018-09-08] MEDS: Sod Chloride 0.9% Inj 1,000 ML IV.CONT SCH (09:52)
[2018-09-08 10:11] VITALS: BP 102/58; RESP 16; TEMP 97.7; O2SAT 97
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
== END 2018-09-08 14:14 | disposition home or self-care (01) ==
LOC: NEDA 06:01 → NEPC 06:01 → NEPHCDU 12:33 → N07 09-06 01:28
PROVIDERS: ADMIT Hospitalist; ATTEND Hospitalist